=== PATIENT | female | born 1960 | race Caucasian/White ===

== ENCOUNTER 2020-10-01 15:36 | Inpatient (IN) | payer BC, MEDICARE ==
[~2020-10-01] VITALS: Ht 162.5 cm; Wt 101.1 kg
--- NOTE | 2020-10-01 15:51 | ED General ---
General Stated Complaint: HIGH HEART RATE,LT SHOULDER PAIN,NECK PAIN Source of Information: Patient Exam Limitations: No Limitations History of Present Illness Date Seen by Provider: Oct 01, 2020 Time Seen by Provider: 15:40 Initial Comments Patient is a 59-year-old female who presents with multiple medical complaints. Patient arrived in town 2 days ago after driving from [place] 12 hours straight. She reports left-sided neck pain with tenderness radiating to her left arm. She has had ongoing neck pain with radicular symptoms for the past 2 days. Pain is described as sharp rated moderate to severe and is worse with palpation neck movement shoulder movement. She denies chest pain and shortness of breath. Patient noted to be tachycardic with heart rate in 130s. Denies substance abuse, withdrawal or missed medications. Denies alcohol use. No fever chills or sweats. No leg pain or swelling. No history of DVT or PE. No weakness of loss of sensation in left upper extremity. No abdominal pain, nausea or vomiting. No dizziness or lightheadedness. No other acute symptoms or complaints. Patient does not currently have a PCP in [place]. Timing/Duration: 2-3 Days Severity: Moderate Modifying Factors: improves with Other Associated Systoms: Other Allergies and Home Medications Allergies Coded Allergies: Penicillins (Unverified Allergy, Mild, 03/21/14) azithromycin (Unverified Allergy, Mild, 03/21/14) Sulfa (Sulfonamide Antibiotics) (Verified Allergy, Unknown, 10/01/20) codeine (Verified Allergy, Unknown, 10/01/20) Patient Home Medication List Home Medication List Reviewed: Yes Review of Systems Review of Systems Constitutional: no symptoms reported EENTM: see HPI Cardiovascular: see HPI Gastrointestinal: see HPI Genitourinary: see HPI Musculoskeletal: see HPI Skin: see HPI Psychiatric/Neurological: See HPI Immunological/Allergic: see HPI All Other Systems Reviewed Negative Unless Noted: Yes Past [id number]-[id number] Hx Past Med/Social Hx: Reviewed Nursing Past Med/Soc Hx Seasonal Allergies Seasonal Allergies: No Physical Exam Vital Signs Vital Signs - First Documented 10/01/20 15:36 Temp 37.2 Pulse 141 Resp 23 B/P (MAP) 154/86 (108) Pulse Ox 99 O2 Delivery Room Air Capillary Refill : Height, Weight, BMI Height: 5'3" Weight: 201lbs. oz. 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 as Tested Skin: Normal Color Lymphatic: No Adenopathy Focused Exam Sepsis Stage: Ruled Out Progress/Results/Core Measures Suspected Sepsis SIRS Temperature: Pulse: Respiratory Rate: Laboratory Tests 10/01/20 15:49: White Blood Count 19.0H Blood Pressure / Mean: Laboratory Tests 10/01/20 15:49: Creatinine 1.04, Platelet Count 464H, Total Bilirubin 0.3 Results/Orders Lab Results Laboratory Tests Test 10/01/20 15:49 10/01/20 16:17 Range/Units White Blood Count 19.0 H 4.3-11.0 10^3/uL Red Blood Count 4.74 4.35-5.85 10^6/uL Hemoglobin 14.0 11.5-16.0 G/DL Hematocrit 43 35-52 % Mean Corpuscular Volume 91 80-99 FL Mean Corpuscular Hemoglobin 30 25-34 PG Mean Corpuscular Hemoglobin Concent 33 32-36 G/DL Red Cell Distribution Width 20.1 H 10.0-14.5 % Platelet Count 464 H 130-400 10^3/uL Mean Platelet Volume 11.6 H 7.4-10.4 FL Immature Granulocyte % (Auto) 0 % Neutrophils (%) (Auto) 71 42-75 % Lymphocytes (%) (Auto) 18 12-44 % Monocytes (%) (Auto) 8 0-12 % Eosinophils (%) (Auto) 2 0-10 % Basophils (%) (Auto) 1 0-10 % Neutrophils # (Auto) 13.4 H 1.8-7.8 X 10^3 Lymphocytes # (Auto) 3.5 1.0-4.0 X 10^3 Monocytes # (Auto) 1.6 H 0.0-1.0 X 10^3 Eosinophils # (Auto) 0.3 0.0-0.3 10^3/uL Basophils # (Auto) 0.1 0.0-0.1 10^3/uL Immature Granulocyte # (Auto) 0.1 0.0-0.1 10^3/uL Neutrophils % (Manual) 68 % Lymphocytes % (Manual) 13 % Monocytes % (Manual) 12 % Eosinophils % (Manual) 6 % Basophils % (Manual) 2 % Band Neutrophils 2 % D-Dimer 0.58 H 0.00-0.49 UG/ML Sodium Level 138 135-145 MMOL/L Potassium Level 4.0 3.6-5.0 MMOL/L Chloride Level 98 98-107 MMOL/L Carbon Dioxide Level 24 21-32 MMOL/L Anion Gap 16 H 5-14 MMOL/L Blood Urea Nitrogen 18 7-18 MG/DL Creatinine 1.04 0.60-1.30 MG/DL Estimat Glomerular Filtration Rate 54 BUN/Creatinine Ratio 17 Glucose Level 153 H 70-105 MG/DL Calcium Level 10.2 H 8.5-10.1 MG/DL Corrected Calcium 9.8 8.5-10.1 MG/DL Magnesium Level 1.3 L 1.6-2.4 MG/DL Total Bilirubin 0.3 0.1-1.0 MG/DL Aspartate Amino Transf (AST/SGOT) 51 H 5-34 U/L Alanine Aminotransferase (ALT/SGPT) 46 0-55 U/L Alkaline Phosphatase 155 H 40-136 U/L Troponin I < 0.30 <0.30 NG/ML Total Protein 8.4 H 6.4-8.2 GM/DL Albumin 4.5 3.2-4.5 GM/DL Urine Color DK YELLOW Urine Clarity SLT CLLUDY Urine pH 5.5 5-9 Urine Specific [place] >=1.030 1.016-1.022 Urine Protein 1+ H NEGATIVE Urine Glucose (UA) 2+ H NEGATIVE Urine Ketones NEGATIVE NEGATIVE Urine Nitrite NEGATIVE NEGATIVE Urine Bilirubin 1+ H NEGATIVE Urine Urobilinogen 0.2 < = 1.0 MG/DL Urine Leukocyte Esterase 2+ H NEGATIVE Urine RBC (Auto) TRACE H NEGATIVE Urine RBC NONE /HPF Urine WBC 25-50 H /HPF Urine Squamous Epithelial Cells 5-10 /HPF Urine Crystals NONE /LPF Urine Bacteria TRACE /HPF Urine Casts NONE /LPF Urine Mucus NEGATIVE /LPF Urine Culture Indicated YES Urine Opiates Screen POSITIVE H NEGATIVE Urine Oxycodone Screen NEGATIVE NEGATIVE Urine Methadone Screen NEGATIVE NEGATIVE Urine Propoxyphene Screen NEGATIVE NEGATIVE Urine Barbiturates Screen NEGATIVE NEGATIVE Ur Tricyclic Antidepressants Screen POSITIVE H NEGATIVE Urine Phencyclidine Screen NEGATIVE NEGATIVE Urine Amphetamines Screen NEGATIVE NEGATIVE Urine Methamphetamines Screen NEGATIVE NEGATIVE Urine Benzodiazepines Screen NEGATIVE NEGATIVE Urine Cocaine Screen NEGATIVE NEGATIVE Urine Cannabinoids Screen NEGATIVE NEGATIVE My Orders Orders - ABDI DE LA FUENTE DO Cbc With Automated Diff (10/01/20 15:51) Comprehensive Metabolic Panel (10/01/20 15:51) Ekg-Prn For Chest Pain Or Rhyt (10/01/20 15:51) Troponin I Fs (10/01/20 15:51) Chest 1 View Ap/Pa Only (10/01/20 15:51) Fentanyl Inj (Sublimaze Injection) (10/01/20 16:00) Ondansetron Injection (Zofran Injectio (10/01/20 16:00) Drug Screen Stat (Urine) (10/01/20 15:51) Urinalysis (10/01/20 15:51) Fibrin Degradation Products (10/01/20 15:51) Magnesium (10/01/20 15:51) Manual Differential (10/01/20 15:49) Ns Iv 1000 Ml (Sodium Chloride 0.9%) (10/01/20 16:45) Ct Angio Chest W (10/01/20 16:37) Ct Angio Neck W (10/01/20 16:37) Ekg Tracing (10/01/20 15:41) Lorazepam Injection (Ativan Injection) (10/01/20 16:45) Urine Culture (10/01/20 16:17) Iohexol Injection (Omnipaque 350 Mg/Ml 1 (10/01/20 16:45) Received Contrast (Hold Metformin- Contr (10/01/20 16:45) Sodium Chloride Flush (Catheter Flush Sy (10/01/20 16:45) Ns (Ivpb) (Sodium Chloride 0.9% Ivpb Bag (10/01/20 16:45) Lactic Acid Analyzer (10/01/20 18:00) Blood Culture (10/01/20 18:00) Medications Given in ED Current Medications Medications Dose Ordered Sig/Janelle Route Start Time Stop Time Status Last Admin Dose Admin Fentanyl Citrate 50 mcg ONCE ONCE IVP 10/01/20 16:00 10/01/20 16:01 DC 10/01/20 16:04 50 MCG Iohexol 150 ml ONCE ONCE IV 10/01/20 16:45 10/01/20 16:46 DC 10/01/20 17:22 150 ML Lorazepam 1 mg ONCE ONCE IVP 10/01/20 16:45 10/01/20 16:46 DC 10/01/20 16:45 1 MG Ondansetron HCl 4 mg ONCE ONCE IVP 10/01/20 16:00 10/01/20 16:01 DC 10/01/20 16:04 4 MG Sodium Chloride 10 ml NEEDED PRN IV 10/01/20 16:45 10/01/20 17:22 10 ML Sodium Chloride 100 ml ONCE ONCE IV 10/01/20 16:45 10/01/20 16:46 DC 10/01/20 17:22 100 ML Vital Signs/I&O 10/01/20 15:36 Temp 37.2 Pulse 141 Resp 23 B/P (MAP) 154/86 (108) Pulse Ox 99 O2 Delivery Room Air Capillary Refill : Departure Communication (Admissions) EKG 10/01/2020, 1541: Sinus tachycardia rate 135, MA interval 129, QRS 93, QTc 464. No acute ST-T wave changes. Chest x-ray: No acute cardiopulmonary disease. CTA neck/chest: Pulmonary emboli and subsegmental lobes of all 5 lobes. No evidence of significant right heart strain Patient with multiple medical complaints. Tachycardia presumed to be the result of pulmonary emboli. Patient is not hypoxic or hypotensive. Lovenox initiated. She also noted to have a 19,000 white count with positive UA. Afebrile, no nausea vomiting or sweats. IV fluids given and IV antibiotics given. Patient accepted to [facility] per Dr. Hernandez at 17:45 Critical care time: 35 minutes Impression Primary Impression: Pulmonary emboli Additional Impressions: Cervical radicular pain Urinary tract infection Disposition: ADMITTED INPATIENT Condition: Stable Admissions Decision to Admit Reason: Admit from ER (General) Decision to Admit/Date: Oct 01, 2020 Time/Decision to Admit Time: 17:45 Transfer Transfer Reason: Exceeds level of care Method of Transfer: EMS Departure-Patient Inst. Referrals: SELF,CATHERINE MANZANO (PCP/Family) Primary Care Physician ABDI DE LA FUENTE DO Oct 01, 2020 15:51
[2020-10-01] MEDS ORDERED: ONDANSETRON 4 MG/2 ML (SDV) Z0FRAN IVP ONE (16:00)
[2020-10-01] MEDS ORDERED: fentaNYL INJ 100 MCG/2 ML AMP IVP ONE (16:00)
[2020-10-01 16:07] LABS: HEMATOCRIT 43 % (35-52); MEAN CORPUSCULAR HEMOGLOBIN 30 PG (25-34); MEAN CORPUSCULAR HGB CONC 33 G/DL (32-36); MEAN CORPUSCULAR VOLUME 91 FL (80-99); MEAN PLATELET VOLUME 11.6 FL (7.4-10.4); PLATELET COUNT 464 10^3/uL (130-400)
[2020-10-01 16:08] LABS: BASOPHILS # (AUTO) 0.1 10^3/uL (0.0-0.1); BASOPHILS % (AUTO) 1 % (0-10); EOSINOPHILS # (AUTO) 0.3 10^3/uL (0.0-0.3); EOSINOPHILS % (AUTO) 2 % (0-10); LYMPHOCYTES # (AUTO) 3.5 X 10^3 (1.0-4.0); LYMPHOCYTES % (AUTO) 18 % (12-44); MONOCYTES # (AUTO) 1.6 X 10^3 (0.0-1.0); MONOCYTES % (AUTO) 8 % (0-12); NEUTROPHILS # (AUTO) 13.4 X 10^3 (1.8-7.8); NEUTROPHILS % (AUTO) 71 % (42-75)
--- NOTE | 2020-10-01 16:11 | Diagnostic Imaging Report ---
INDICATION: Left-sided chest pain. TECHNIQUE/COMPARISON: A frontal chest was obtained at 3:49 PM. There is no prior study for comparison. FINDINGS: The heart and mediastinal silhouette are normal in appearance. The lungs are clear. There is no pneumothorax or pleural fluid. IMPRESSION: Negative chest. Dictated by: Dictated on workstation # [id number]
[2020-10-01 16:20] LABS: BUN/CREATININE RATIO 17; CALCIUM 10.2 MG/DL (8.5-10.1); CARBON DIOXIDE 24 MMOL/L (21-32); CHLORIDE 98 MMOL/L (98-107); CREATININE SERUM 1.04 MG/DL (0.60-1.30); GFR ESTIMATED 54; GLUCOSE 153 MG/DL (70-105); MAGNESIUM 1.3 MG/DL (1.6-2.4); SODIUM 138 MMOL/L (135-145)
[2020-10-01 16:21] LABS: ALANINE AMINOTRANSFERASE 46 U/L (0-55); ALBUMIN 4.5 GM/DL (3.2-4.5); ALKALINE PHOSPHATASE 155 U/L (40-136); BILIRUBIN,TOTAL 0.3 MG/DL (0.1-1.0); TOTAL PROTEIN 8.4 GM/DL (6.4-8.2)
[2020-10-01 16:38] LABS: BILIRUBIN,URINE 1+ (NEGATIVE); CLARITY,URINE SLT CLLUDY; COLOR,URINE DK YELLOW; GLUCOSE, URINE (UA) 2+ (NEGATIVE); KETONES,URINE NEGATIVE (NEGATIVE); LEUKOCYTE ESTERASE ,URINE 2+ (NEGATIVE); NITRITE,URINE NEGATIVE (NEGATIVE); PH,URINE 5.5 (5-9); PROTEIN,URINE 1+ (NEGATIVE)
[2020-10-01 16:39] LABS: BACTERIA,URINE TRACE /HPF; WBC,URINE 25-50 /HPF
[2020-10-01 16:40] LABS: AMPHETAMINE SCREEN, URINE NEGATIVE (NEGATIVE); BARBITURATE SCREEN URINE NEGATIVE (NEGATIVE); BENZODIAZEPINES SCREEN URINE NEGATIVE (NEGATIVE); CANNABINOID SCREEN, URINE NEGATIVE (NEGATIVE); COCAINE SCREEN URINE NEGATIVE (NEGATIVE); METHADONE STAT NEGATIVE (NEGATIVE); METHAMPHETAMINE SCREEN URINE S NEGATIVE (NEGATIVE); OPIATE SCREEN URINE POSITIVE (NEGATIVE); OXYCODONE STAT NEGATIVE (NEGATIVE); PROPOXYPHENE STAT NEGATIVE (NEGATIVE); TRICYCLIC ANTIDEPRESSANTS SCRE POSITIVE (NEGATIVE)
[2020-10-01] MEDS: NS IV 1000 ML 1,000 ML IV SCH ×2 (16:41→18:09)
[2020-10-01] MEDS ORDERED: LORazepam INJ 2 MG/ML (ATIVAN) VIAL IVP ONE (16:45)
[2020-10-01] MEDS ORDERED: NS 100 ML (IVPB) BAG IV ONE (16:45)
[2020-10-01] MEDS ORDERED: IOHEXOL 350 MG/ML 150 ML (OMNIPAQUE 350) VIAL IV ONE (16:45)
[2020-10-01] MEDS ORDERED: CATHETER FLUSH 10 ML SYR IV PRN ×2 (16:45→20:30)
[2020-10-01] MEDS ORDERED: HOLD METFORMIN - RECEIVED CONTRAST 20 ML VIAL IV SCH (16:45)
[2020-10-01 16:54] LABS: BAND NEUTROPHILS 2 %; BASOPHILS % (MANUAL) 2 %; EOSINOPHILS % (MANUAL) 6 %; LYMPHOCYTES % (MANUAL) 13 %; MONOCYTES % (MANUAL) 12 %; NEUTROPHILS % (MANUAL) 68 %
--- NOTE | 2020-10-01 17:43 | Diagnostic Imaging Report ---
REASON FOR EXAM: Left-sided neck pain. Shortness of breath. TIME OF EXAM: 10/01/2020 5:35 PM COMPARISON: None. TECHNIQUE: Contrast-enhanced thin section helical images were obtained from the mediastinum to the sella with the bolus of contrast timed for the optimal opacification of the arterial structures of the neck per departmental CTA protocol. Postprocessing and retro-reconstruction with coronal and sagittal reformatted images of the angiographic views of the vessels were obtained and were reviewed. 3D reformatted images were generated on a separate workstation and were reviewed. FINDINGS: The visualized portions of the aortic arch demonstrate no evidence of aneurysm or dissection. The origin of the arch vessels is unremarkable. The brachiocephalic artery is normal in course and caliber. The right common carotid origin is unremarkable. The right subclavian artery is normal in course and caliber. Both common carotid arteries are normal in course and caliber. Bilateral internal carotid arteries are unremarkable up to the level of the skull base. The vertebral arteries are codominant. The origin of the right vertebral artery is seen and is unremarkable. The origin of the left vertebral artery is seen and is unremarkable. There is no focal stenosis seen within the neck. There is no dissection. The vertebral arteries are well visualized to up to the level of the basilar artery. The osseous structures of the cervical spine are unremarkable. Included views through the intracranial structures demonstrate no acute abnormalities. IMPRESSION: 1. No evidence of stenosis or dissection in the common and internal carotid arteries. 2. No evidence of stenosis or dissection of the vertebral arteries. Dictated by: Dictated on workstation # [id number]
--- NOTE | 2020-10-01 17:54 | Diagnostic Imaging Report ---
PROCEDURE: CT angiography of the chest with contrast. TECHNIQUE: Multiple contiguous axial images were obtained through the chest after uneventful bolus administration of intravenous contrast. 3D reconstructed CTA MIP acquisitions were also performed. Auto Exposure Controls were utilized during the CT exam to meet ALARA standards for radiation dose reduction. INDICATION: Left-sided chest pain. Shortness of breath. Elevated d-dimer. COMPARISON: Chest radiograph on 10/01/2020. CT abdomen and pelvis on 03/21/2014. FINDINGS: This helical CT pulmonary angiogram is diagnostic to the subsegmental level branches of the pulmonary artery and demonstrates a small burden of pulmonary emboli involving the subsegmental arteries and all five lobes. No evidence of right heart strain. The heart size is normal. No pericardial effusion. There is no axillary, mediastinal or hilar adenopathy. No focal consolidation or mass. No evidence of pulmonary infarct. Calcified granuloma is seen in the right midlung. Dependent atelectasis is seen, bilaterally. No pleural effusion is seen. Osseous structures appear normal. Nonspecific nodule seen in the left adrenal gland measuring 1.6 cm. IMPRESSION: 1. Small burden of pulmonary emboli in the subsegmental arteries in all five lobes. No evidence of right heart strain. No pulmonary infarct. 2. Nonspecific left adrenal nodule, stable since 2013 and likely benign. Findings were called to Dr. Mendez at 5:45 PM on 10/01/[address] Antoni Hernandez. Dictated by: Dictated on workstation # [id number]
[2020-10-01] MEDS ORDERED: ENOXAPARIN 100 MG/1 ML (LOVENOX) SYR SC ONE (18:15)
[2020-10-01] MEDS ORDERED: HYDROcodone/APAP 5 MG/325 MG (LORTAB) TAB ONE (18:45)
[2020-10-01] MEDS ORDERED: HYDROcodone/APAP 5 MG/325 MG (LORTAB) TAB PO ONE (19:00)
[2020-10-01] MEDS ORDERED: HYDROcodone/APAP 5 MG/325 MG (LORTAB) TAB PO PRN (20:30)
[2020-10-01] MEDS: GABAPENTIN 300 MG (NEURONTIN) CAP PO SCH (22:55)
[2020-10-01] MEDS: HYDROcodone/APAP 7.5 MG/325 MG (LORTAB, LORCET PLUS) TABLET PO PRN (22:56)
[2020-10-01] MEDS: cefTRIAXone 1,000 MG/SWFI 10 ML IV PUSH IV SCH ×2 (22:57)
[2020-10-01] MEDS: CATHETER FLUSH 10 ML SYR IV SCH (23:01)
[2020-10-02] MEDS ORDERED: ALLO100T PO (03:29)
[2020-10-02] MEDS ORDERED: ISOS120T9 PO (03:29)
[2020-10-02] MEDS ORDERED: METF100P2 MC (03:29)
[2020-10-02] MEDS ORDERED: MTP100TCR PO (03:29)
[2020-10-02] MEDS ORDERED: SUCR1TAB PO (03:29)
[2020-10-02] MEDS ORDERED: INSU100I22 SQ ×2 (03:29→11:48)
[2020-10-02] MEDS ORDERED: RANO500T6 PO (03:29)
[2020-10-02] MEDS ORDERED: LISI10TA25 PO (03:29)
[2020-10-02] MEDS ORDERED: ASPI-1238 PO (03:29)
[2020-10-02] MEDS ORDERED: PANT40TA52 PO (03:29)
[2020-10-02] MEDS ORDERED: HYDR-3817 PO (03:29)
[2020-10-02] MEDS ORDERED: GABA300S2 PO (03:29)
[2020-10-02] MEDS ORDERED: MONT10TA32 PO (03:29)
[2020-10-02] MEDS ORDERED: SITA100T12 PO (03:29)
[2020-10-02] MEDS ORDERED: GEMF600T88 PO (03:29)
[2020-10-02] MEDS ORDERED: AMLO-250 PO (03:29)
[2020-10-02] MEDS ORDERED: VENL75TA2 PO (03:29)
[2020-10-02] MEDS ORDERED: NITR0.4T39 SL (03:29)
[2020-10-02] MEDS ORDERED: ATOR40TA70 PO (03:29)
[2020-10-02] MEDS ORDERED: MELO15TA39 PO (03:29)
[2020-10-02] MEDS ORDERED: RT-ALBUINH IH (03:29)
[2020-10-02 03:48] LABS: BASOPHILS # (AUTO) 0.1 10^3/uL (0.0-0.1); BASOPHILS % (AUTO) 1 % (0-10); EOSINOPHILS # (AUTO) 0.4 10^3/uL (0.0-0.3); EOSINOPHILS % (AUTO) 4 % (0-10); HEMATOCRIT 36 % (35-52); HEMOGLOBIN 11.4 g/dL (11.5-16.0); LYMPHOCYTES # (AUTO) 3.4 10^3/uL (1.0-4.0); LYMPHOCYTES % (AUTO) 32 % (12-44); MEAN CORPUSCULAR HEMOGLOBIN 30 pg (25-34); MEAN CORPUSCULAR HGB CONC 32 g/dL (32-36); MEAN CORPUSCULAR VOLUME 94 fL (80-99); MEAN PLATELET VOLUME 11.7 fL (9.0-12.2); MONOCYTES # (AUTO) 1.1 10^3/uL (0.0-1.0); MONOCYTES % (AUTO) 11 % (0-12); NEUTROPHILS # (AUTO) 5.7 10^3/uL (1.8-7.8); NEUTROPHILS % (AUTO) 53 % (42-75); PLATELET COUNT 340 10^3/uL (130-400); WHITE BLOOD COUNT 10.7 10^3/uL (4.3-11.0)
[2020-10-02 04:22] LABS: ALBUMIN 3.4 GM/DL (3.2-4.5)
[2020-10-02 04:23] LABS: CALCIUM 8.8 MG/DL (8.5-10.1)
[2020-10-02 04:25] LABS: TOTAL PROTEIN 6.6 GM/DL (6.4-8.2)
[2020-10-02 04:26] LABS: BILIRUBIN,TOTAL 0.2 MG/DL (0.1-1.0)
[2020-10-02 04:28] LABS: CREATININE SERUM 1.04 MG/DL (0.60-1.30)
--- NOTE | 2020-10-02 04:44 | Pulmonary Consultation ---
History of Present Illness History of Present Illness Date Seen by Provider: Oct 02, 2020 Time Seen by Provider: 04:38 Date of Admission Allergies and Home Medications Allergies Coded Allergies: Penicillins (Unverified Allergy, Mild, 03/21/14) azithromycin (Unverified Allergy, Mild, 03/21/14) Sulfa (Sulfonamide Antibiotics) (Verified Allergy, Unknown, 10/01/20) codeine (Verified Allergy, Unknown, 10/01/20) Home Medications Albuterol Sulfate 1 Puff Puff, 2 PUFF IH Q4H, (Reported) 1 PUFF = 90 MCG Allopurinol 100 Mg Tablet, 200 MG PO DAILY, (Reported) Amlodipine Besylate 5 Mg Tablet, 5 MG PO DAILY, (Reported) Aspirin 81 Mg Tablet.dr, 81 MG PO DAILY, (Reported) Atorvastatin Calcium 40 Mg Tablet, 40 MG PO HS, (Reported) Gabapentin 300 Mg/6 Ml Solution, 300 MG PO TID, (Reported) Gemfibrozil 600 Mg Tablet, 600 MG PO BID, (Reported) Hydrocodone/Acetaminophen 1 Each Tablet, 1 EACH PO Q6H PRN for PAIN-MODERATE (5- 7), (Reported) Isosorbide Mononitrate 120 Mg Tab.er.24h, 120 MG PO DAILY, (Reported) Lisinopril 10 Mg Tablet, 10 MG PO DAILY, (Reported) Meloxicam 15 Mg Tablet, 15 MG PO DAILY, (Reported) Metformin HCl 100 Gm Powder, 100 GM MC BID, (Reported) Metoprolol Succinate 100 Mg Tab.er.24h, 100 MG PO DAILY, (Reported) Montelukast Sodium 10 Mg Tablet, 10 MG PO HS, (Reported) Nitroglycerin 0.4 Mg Tab.subl, 0.4 MG SL UD PRN for CHEST PAIN, (Reported) Pantoprazole Sodium 40 Mg Tablet.dr, 40 MG PO DAILY, (Reported) Ranolazine 500 Mg Tab.er.12h, 500 MG PO BID, (Reported) Sitagliptin Phosphate 100 Mg Tablet, 100 MG PO DAILY, (Reported) Sucralfate 1 Gm Tablet, 2 GM PO BID, (Reported) Venlafaxine HCl 75 Mg Tab.er.24, 75 MG PO DAILY, (Reported) Past Hhifrkz-Dhwmbw-Rdehpk Hx Past Med/Social Hx: Reviewed Nursing Past Med/Soc Hx Patient Social History Alcohol Use: Denies Use Smoking Status: Current Everyday Smoker Type Used: Cigarettes 2nd Hand Smoke Exposure: No Recent Infectious Disease Expo: No Recent Hopitalizations: No Have you traveled recently?: No Alcohol Use?: Yes Immunizations Up To Date Date of Influenza Vaccine: May 03, 2020 Seasonal Allergies Seasonal Allergies: Yes Past Medical History Surgeries: Yes Appendectomy, Coronary Stent, Gallbladder, 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, Orthopedic Respiratory: Yes COPD Cardiac: Yes ("Hole in heart") Coronary Artery Disease, Heart Attack, High Cholesterol, Hypertension 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 oz. 91.471869tn; 36.58 BMI Method: Exam Exam Vital Signs Date Time Temp Pulse Resp B/P (MAP) Pulse Ox O2 Delivery O2 Flow Rate FiO2 10/02/20 02:00 106 20 102/56 (71) 97 Room Air 10/02/20 01:49 94 Room Air 10/02/20 01:00 104 18 119/64 (82) 98 Room Air 10/02/20 01:00 106 10/02/20 00:30 94 Room Air 10/02/20 00:00 105 18 85/57 (66) 96 Room Air 10/01/20 23:00 115 13 105/67 (80) 97 Room Air 10/01/20 22:01 20 102/54 (70) 92 Room Air 10/01/20 21:50 94 Room Air 10/01/20 21:39 120 10/01/20 21:30 108 22 123/77 (92) 95 Room Air 10/01/20 21:00 20 85/62 (70) 92 10/01/20 20:45 131 28 101/75 (84) 96 Room Air 10/01/20 20:30 130 28 101/75 (84) 96 Room Air 10/01/20 20:30 94 Room Air 10/01/20 20:15 130 22 103/72 (82) 95 Room Air 10/01/20 20:00 22 117/78 (91) 94 10/01/20 20:00 94 Room Air 10/01/20 19:55 22 109/70 (83) 94 Room Air 10/01/20 18:59 37.2 126 23 111/66 (108) 99 Room Air 10/01/20 15:36 37.2 141 23 154/86 (108) 99 Room Air I & O 10/02/20 07:00 Intake Total 1700 ml Output Total 700 ml Balance 1000 ml Height & Weight Height: 5'3" Weight: 201lbs. oz. 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
[2020-10-02] MEDS: CATHETER FLUSH 10 ML SYR IV SCH ×3 (05:33→22:01)
[2020-10-02] MEDS: ENOXAPARIN 100 MG/1 ML (LOVENOX) SYR SC SCH ×2 (05:33→17:55)
[2020-10-02] MEDS ORDERED: amLODIPine 5 MG (NORVASC) TAB PO ONE (09:00)
[2020-10-02] MEDS: NICOTINE PATCH REMOVAL TP SCH (09:05)
[2020-10-02] MEDS: GABAPENTIN 300 MG (NEURONTIN) CAP PO SCH ×3 (09:06→21:02)
[2020-10-02] MEDS: NICOTINE 14 MG (NICODERM) PATCH TD SCH (09:06)
[2020-10-02] MEDS: ALLOPURINOL 100 MG (ZYLOPRIM) TAB PO SCH ×2 (09:08→17:54)
[2020-10-02] MEDS ORDERED: METF-399 PO (10:27)
[2020-10-02] MEDS ORDERED: DIPH25CA79 PO (10:27)
[2020-10-02] MEDS ORDERED: MELA10TA2 PO (10:27)
[2020-10-02] MEDS ORDERED: FLUT9.9S NS (10:27)
[2020-10-02] MEDS ORDERED: GABA300C PO (10:27)
--- NOTE | 2020-10-02 11:35 | Consultation-Cardiology ---
HPI-Cardiology Cardiology Consultation: Date of Consultation 10/02/20 Time Seen by a Provider: 12:25 Date of Admission 10-01-20 Attending Physician Justine Hernandez MD Admitting Physician Charly Valdez MD Consulting Physician Ely Love MD HPI: Chief Complaint: SOB PE Sinus tachycardia Ms. Noyola is a 59 yr old female admitted to ICU 4 from [facility] ED. She reports she and her friend are moving back to the area from [place]. She reports they were in the car for approx 8-10 hours only stopping briefly for restroom breaks. She states she began to have left sided neck, shoulder and upper arm pain which is worse with movement and palpation. She then presented to Urgent Care at [facility] and was directed to the ED d/t HR in the 180's, for which she was asymptomatic. She reports she has chronic SOB, but felt it had been somewhat worse the last couple days. She denies any c/o CP. She reports chronic bilat LE swelling, which is unchanged in the recent past. She denies any c/o palpitations, syncope or near syncope. She reports chronic joint, back and muscle pain for which she is on chronic narcotic tx. She states she is feeling better at this time. She reports her neck pain is better, but very tender to the touch and with movement. She reports she had her second COVID vaccine a week ago. No c/o fever or chills. States she has chronic hot flashes. Review of Systems-Cardiology Review of Systems Constitutional: No chills, No fever; malaise Eyes: No vision change Ears/Nose/Throat: No epistaxis, No recent hearing loss Respiratory: As described under HPI Cardiovascular: As described under HPI Gastrointestinal: As described under HPI Genitourinary: No dysuria, No hematuria Musculoskeletal: As describe under HPI, back pain, joint pain, muscle pain Skin: No rash on exposed areas, No ulcerations on exposed areas Psychiatric/Neurological: No anxiety, No depression, No seizure, No focal weakness, No syncope Hematologic: No bleeding abnormalities All Other Systems Reviewed Negative Unless Noted: Yes [facility]-[id number]-Jvybyk Hx Patient Social History Smoking Status: Current Everyday Smoker 2nd Hand Smoke Exposure: No Have you traveled recently?: No Alcohol Use?: Yes Tobacco type used: Cigarettes Immunizations Up To Date Date of Influenza Vaccine: May 03, 2020 Past Medical History PMH As described under Assessment. Family Medical History Family Medical History: She reports her mother had CAD with stent placement. She reports her brothers and sisters "all have heart troubles". Allergies and Home Medications Allergies Coded Allergies: Penicillins (Unverified Allergy, Mild, 03/21/14) azithromycin (Unverified Allergy, Mild, 03/21/14) Sulfa (Sulfonamide Antibiotics) (Verified Allergy, Unknown, 10/01/20) codeine (Verified Allergy, Unknown, 10/01/20) Home Medications Albuterol Sulfate 1 Puff Puff, 2 PUFF IH Q4H PRN for SHORTNESS OF BREATH, (Reported) Last Action: Reviewed Allopurinol 100 Mg Tablet, 100 MG PO 1200,2200, (Reported) Last Action: Reviewed Amlodipine Besylate 5 Mg Tablet, 5 MG PO 1999, (Reported) Last Action: Reviewed Aspirin 81 Mg Tablet.dr, 162 MG PO DAILY, (Reported) TAKES 2 (81NG) TABS Last Action: Reviewed Atorvastatin Calcium 40 Mg Tablet, 40 MG PO HS, (Reported) Last Action: Reviewed Diphenhydramine HCl 25 Mg Capsule, 25 MG PO HS, (Reported) Last Action: Reviewed Fluticasone Propionate 9.9 Ml [place].susp, 1-2 SPRAY NS DAILY PRN for CONGESTION, (Reported) Last Action: Reviewed Gabapentin 300 Mg Capsule, 300 MG PO TID, (Reported) Last Action: Reviewed Gemfibrozil 600 Mg Tablet, 600 MG PO BID, (Reported) Last Action: Reviewed Hydrocodone/Acetaminophen 1 Each Tablet, 1 EACH PO Q6H PRN for PAIN-MODERATE (5- 7), (Reported) Last Action: Reviewed Insulin NPL/Insulin Lispro 100 Unit/1 Ml Insuln.pen, 90 UNIT SQ BID, (Reported) Last Action: Reviewed Insulin NPL/Insulin Lispro 100 Unit/1 Ml Insuln.pen, 60 UNIT SQ 1200, (Reported) Last Action: Reviewed Isosorbide Mononitrate 120 Mg Tab.er.24h, 120 MG PO 1999, (Reported) Last Action: Reviewed Lisinopril 10 Mg Tablet, 10 MG PO 1200, (Reported) Last Action: Reviewed Melatonin 10 Mg Tablet, 10 MG PO HS, (Reported) Last Action: Reviewed Meloxicam 15 Mg Tablet, 15 MG PO HS, (Reported) Last Action: Reviewed Metformin HCl 1,000 Mg Tablet, 1,000 MG PO 1200,2200, (Reported) Last Action: Reviewed Metoprolol Succinate 100 Mg Tab.er.24h, 100 MG PO 1800, (Reported) Last Action: Reviewed Montelukast Sodium 10 Mg Tablet, 10 MG PO HS, (Reported) Last Action: Reviewed Nitroglycerin 0.4 Mg Tab.subl, 0.4 MG SL UD PRN for CHEST PAIN, (Reported) Last Action: Reviewed Pantoprazole Sodium 40 Mg Tablet.dr, 40 MG PO HS, (Reported) Last Action: Reviewed Ranolazine 500 Mg Tab.er.12h, 500 MG PO 1200,2200, (Reported) Last Action: Reviewed Sitagliptin Phosphate 100 Mg Tablet, 100 MG PO DAILY, (Reported) Last Action: Reviewed Venlafaxine HCl 75 Mg Tab.er.24, 75 MG PO 1800, (Reported) Last Action: Last Taken Edited Physical Exam-Cardiology Physical Exam Vital Signs/I&O 10/02/20 10/02/20 10/02/20 10/02/20 01:49 02:00 03:00 04:00 Pulse 106 95 102 Resp 20 22 23 B/P (MAP) 102/56 (71) 127/73 (91) 119/66 (83) Pulse Ox 94 97 97 97 O2 Delivery Room Air Room Air Room Air Room Air 10/02/20 10/02/20 10/02/20 10/02/20 05:00 05:34 06:00 07:00 Pulse 108 112 108 Resp 18 18 B/P (MAP) 130/89 (103) 130/98 (109) Pulse Ox 97 94 98 O2 Delivery Nasal Cannula Room Air Nasal Cannula O2 Flow Rate 2.00 2.00 10/02/20 10/02/20 10/02/20 10/02/20 07:00 08:00 08:12 09:00 Temp 36.0 Pulse 109 112 Resp 17 14 B/P (MAP) 143/82 (102) 122/78 (93) Pulse Ox 97 98 94 O2 Delivery Nasal Cannula Nasal Cannula Room Air O2 Flow Rate 2.00 2.00 10/02/20 10/02/20 10/02/20 11:37 12:00 12:42 Temp 36.2 Pulse 104 118 Resp 15 B/P (MAP) 131/80 (97) Pulse Ox 98 O2 Delivery Nasal Cannula O2 Flow Rate 2.00 10/02/20 00:00 Intake Total 700 ml Output Total 700 ml Balance 0 ml Capillary Refill : Less Than 3 Seconds Constitutional: AAO x 3, well-developed, well-nourished HEENT: PERRL, hearing is well preserved, oral hygience is good Neck: No carotid bruit; carotid pulses are 2 + bilaterally Respiratory: No accessory muscle use, No respiratory distress; chest expansion is symmetric, chest is bilaterally symmetric, lungs clear to auscultation, other (prolonged exp phase) Gastrointestinal: soft, round; No guarding; audible bowel sounds Extremities: no lower extremity edema bilateral Neurologic/Psychiatric: grossly intact (moves all extremities) Skin: No rash on exposed areas, No ulcerations on exposed areas Data Review Labs Laboratory Tests 10/01/20 15:49: White Blood Count 19.0H, Red Blood Count 4.74, Hemoglobin 14.0, Hematocrit 43, Mean Corpuscular Volume 91, Mean Corpuscular Hemoglobin 30, Mean Corpuscular Hemoglobin Concent 33, Red Cell Distribution Width 20.1H, Platelet Count 464H, Mean Platelet Volume 11.6H, Immature Granulocyte % (Auto) 0, Neutrophils (%) (Auto) 71, Lymphocytes (%) (Auto) 18, Monocytes (%) (Auto) 8, Eosinophils (%) (Auto) 2, Basophils (%) (Auto) 1, Neutrophils # (Auto) 13.4H, Lymphocytes # (Auto) 3.5, Monocytes # (Auto) 1.6H, Eosinophils # (Auto) 0.3, Basophils # (Auto) 0.1, Immature Granulocyte # (Auto) 0.1, Neutrophils % (Manual) 68, Lymphocytes % (Manual) 13, Monocytes % (Manual) 12, Eosinophils % (Manual) 6, Basophils % (Manual) 2, Band Neutrophils 2, D-Dimer 0.58H, Sodium Level 138, Potassium Level 4.0, Chloride Level 98, Carbon Dioxide Level 24, Anion Gap 16H, Blood Urea Nitrogen 18, Creatinine 1.04, Estimat Glomerular Filtration Rate 54, BUN/Creatinine Ratio 17, Glucose Level 153H, Calcium Level 10.2H, Corrected Calcium 9.8, Magnesium Level 1.3L, Total Bilirubin 0.3, Aspartate Amino Transf (AST/SGOT) 51H, Alanine Aminotransferase (ALT/SGPT) 46, Alkaline Phosphatase 155H, Troponin I < 0.30, Total Protein 8.4H, Albumin 4.5 10/01/20 16:17: Urine Color DK YELLOW, Urine Clarity SLT CLLUDY, Urine pH 5.5, Urine Specific [place] >=1.030, Urine Protein 1+H, Urine Glucose (UA) 2+H, Urine Ketones NEGATIVE, Urine Nitrite NEGATIVE, Urine Bilirubin 1+H, Urine Urobilinogen 0.2, Urine Leukocyte Esterase 2+H, Urine RBC (Auto) TRACEH, Urine RBC NONE, Urine WBC 25-50H, Urine Squamous Epithelial Cells 5-10, Urine Crystals NONE, Urine Bacteria TRACE, Urine Casts NONE, Urine Mucus NEGATIVE, Urine Culture Indicated YES, Urine Opiates Screen POSITIVEH, Urine Oxycodone Screen NEGATIVE, Urine Methadone Screen NEGATIVE, Urine Propoxyphene Screen NEGATIVE, Urine Barbiturates Screen NEGATIVE, Ur Tricyclic Antidepressants Screen POSITIVEH, Urine Phencyclidine Screen NEGATIVE, Urine Amphetamines Screen NEGATIVE, Urine Methamphetamines Screen NEGATIVE, Urine Benzodiazepines Screen NEGATIVE, Urine Cocaine Screen NEGATIVE, Urine Cannabinoids Screen NEGATIVE 10/01/20 18:16: Lactic Acid Level 1.58 10/01/20 20:56: Glucometer 79 10/02/20 03:30: White Blood Count 10.7, Red Blood Count 3.82, Hemoglobin 11.4L, Hematocrit 36, Mean Corpuscular Volume 94, Mean Corpuscular Hemoglobin 30, Mean Corpuscular Hemoglobin Concent 32, Red Cell Distribution Width 20.4H, Platelet Count 340, Mean Platelet Volume 11.7, Immature Granulocyte % (Auto) 0, Neutrophils (%) (Auto) 53, Lymphocytes (%) (Auto) 32, Monocytes (%) (Auto) 11, Eosinophils (%) (Auto) 4, Basophils (%) (Auto) 1, Neutrophils # (Auto) 5.7, Lymphocytes # (Auto) 3.4, Monocytes # (Auto) 1.1H, Eosinophils # (Auto) 0.4H, Basophils # (Auto) 0.1, Immature Granulocyte # (Auto) 0.0, Sodium Level 134L, Potassium Level 4.0, Chloride Level 103, Carbon Dioxide Level 18L, Anion Gap 13, Blood Urea Nitrogen 16, Creatinine 1.04, Estimat Glomerular Filtration Rate 54, BUN/Creatinine Ratio 15, Glucose Level 195H, Calcium Level 8.8, Corrected Calcium 9.3, Total Bilirubin 0.2, Aspartate Amino Transf (AST/SGOT) 37H, Alanine Aminotransferase (ALT/SGPT) 38, Alkaline Phosphatase 115, Troponin I < 0.028, Total Protein 6.6, Albumin 3.4 Microbiology 10/01/20 Urine Culture - Preliminary, Resulted NO GROWTH Radiology NAME: WESLY NOYOLA [facility] REC#: [id number] PT STATUS: REG ER : 1960 PHYSICIAN: ABDI MENDEZ DO ADMIT DATE: 10/01/20/ER FS Signed Date of Exam:10/01/20 CT ANGIO CHEST W PROCEDURE: CT angiography of the chest with contrast. TECHNIQUE: Multiple contiguous axial images were obtained through the chest after uneventful bolus administration of intravenous contrast. 3D reconstructed CTA MIP acquisitions were also performed. Auto Exposure Controls were utilized during the CT exam to meet ALARA standards for radiation dose reduction. INDICATION: Left-sided chest pain. Shortness of breath. Elevated d-dimer. COMPARISON: Chest radiograph on 10/01/2020. CT abdomen and pelvis on 03/21/2014. FINDINGS: This helical CT pulmonary angiogram is diagnostic to the subsegmental level branches of the pulmonary artery and demonstrates a small burden of pulmonary emboli involving the subsegmental arteries and all five lobes. No evidence of right heart strain. The heart size is normal. No pericardial effusion. There is no axillary, mediastinal or hilar adenopathy. No focal consolidation or mass. No evidence of pulmonary infarct. Calcified granuloma is seen in the right midlung. Dependent atelectasis is seen, bilaterally. No pleural effusion is seen. Osseous structures appear normal. Nonspecific nodule seen in the left adrenal gland measuring 1.6 cm. IMPRESSION: 1. Small burden of pulmonary emboli in the subsegmental arteries in all five lobes. No evidence of right heart strain. No pulmonary infarct. 2. Nonspecific left adrenal nodule, stable since 2013 and likely benign. Findings were called to Dr. Mendez at 5:45 PM on 10/01/[address] Luda Tripp. Dictated by: Dictated on workstation # [id number] Dict: 10/01/20 1744 Trans: 10/01/20 7541 [facility] [id number] Interpreted by: LUDA TRIPP DO Electronically signed by: LUDA TRIPP DO 10/01/20 [id number] [facility] [place] [place] NAME: WESLY NOYOLA [facility] REC#: [id number] PT STATUS: REG ER : 1960 PHYSICIAN: ABDI MENDEZ DO ADMIT DATE: 10/01/20/ER FS Signed Date of Exam:10/01/20 CT ANGIO NECK W REASON FOR EXAM: Left-sided neck pain. Shortness of breath. TIME OF EXAM: 10/01/2020 5:35 PM COMPARISON: None. TECHNIQUE: Contrast-enhanced thin section helical images were obtained from the mediastinum to the sella with the bolus of contrast timed for the optimal opacification of the arterial structures of the neck per departmental CTA protocol. Postprocessing and retro-reconstruction with coronal and sagittal reformatted images of the angiographic views of the vessels were obtained and were reviewed. 3D reformatted images were generated on a separate workstation and were reviewed. FINDINGS: The visualized portions of the aortic arch demonstrate no evidence of aneurysm or dissection. The origin of the arch vessels is unremarkable. The brachiocephalic artery is normal in course and caliber. The right common carotid origin is unremarkable. The right subclavian artery is normal in course and caliber. Both common carotid arteries are normal in course and caliber. Bilateral internal carotid arteries are unremarkable up to the level of the skull base. The vertebral arteries are codominant. The origin of the right vertebral artery is seen and is unremarkable. The origin of the left vertebral artery is seen and is unremarkable. There is no focal stenosis seen within the neck. There is no dissection. The vertebral arteries are well visualized to up to the level of the basilar artery. The osseous structures of the cervical spine are unremarkable. Included views through the intracranial structures demonstrate no acute abnormalities. IMPRESSION: 1. No evidence of stenosis or dissection in the common and internal carotid arteries. 2. No evidence of stenosis or dissection of the vertebral arteries. Dictated by: Dictated on workstation # [id number] Dict: 10/01/20 1738 Trans: 10/01/20 1749 [facility] [id number] Interpreted by: LUDA TRIPP DO NAME: WESLY NOYOLA MED REC#: [id number] PT STATUS: REG ER : 1960 PHYSICIAN: ABDI MENDEZ DO ADMIT DATE: 10/01/20/ER FS Signed Date of Exam:10/01/20 CHEST 1 VIEW AP/PA ONLY INDICATION: Left-sided chest pain. TECHNIQUE/COMPARISON: A frontal chest was obtained at 3:49 PM. There is no prior study for comparison. FINDINGS: The heart and mediastinal silhouette are normal in appearance. The lungs are clear. There is no pneumothorax or pleural fluid. IMPRESSION: Negative chest. 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 No evidence of stenosis or dissection of the vertebral arteries per CTA of the neck Discussion and Recomendations Sinus tachycardia likely secondary to PE Start BB and titrate dose as indicated Echocardiogram to eval structure and function Management of PE per pulmonary/medical services Request records from cardiology in [place] Management of neck/shoulder pain per medical services Monitor lab Replace electrolytes Add ASA d/t reported h/o CAD with stent placement Further recs will be based on her hospital course We would like to thank medical services for this consult YA EDDY Oct 02, 2020 11:35
--- NOTE | 2020-10-02 12:12 | History & Physical-Hospitalist ---
VALERIECOLTON Franco MED STUDENT 10/02/20 1212: History of Present Illness HPI/Chief Complaint CC: b/l PE HPI: This is a 59yoWF with no pcp in town due to recent move and a history of HLD, HTN, TN and CAD post stent placement, DM, ROBINA, GERD, neuropathy, fibromylagia and anxiety who presented to [facility] ED with neck pain radiating into arm without shortness of breath. Of note, patient drove 12 hours from [place] two days ago and received second Moderna shot last Monday. In the ED, she was found to be tachycardic in the 130s, negative troponin and ddimer 0.58. Pt had leukocytosis (19,000) and UA came back positive for UTI. CXR and CTA of neck were both negative and CTA chest showed pulmonary emboli in subsegmental arteries of all 5 lobes without significant right heart strain. She was given Lovenox, IVF and IV Rocephin for UTI and admitted to the ICU. Cardiology was consulted and performed echo today; awaiting results. Patient does complain of severe left thoracic shoulder pain, likely referred from PE, and b/l calf tenderness to palpation left more than right. Doppler U/S of both legs ordered for today. She will resume home meds and be monitored in the ICU today with therapeutic dosing of Lovenox. Source: patient, old records Exam Limitations: no limitations Date Seen 10/02/20 Time Seen by a Provider: 09:00 Attending Physician Justine Hernandez MD PCP Charly Valdez MD Referring Physician Date of Admission Oct 01, 2020 at 19:47 Home Medications & Allergies Home Medications Reviewed patient Home Medication Reconciliation performed by pharmacy medication reconciliations point of care technician and/or nursing. Patients Allergies have been reviewed. Allergies Allergies Coded Allergies Penicillins (Unverified Allergy, Mild, 03/21/14) azithromycin (Unverified Allergy, Mild, 03/21/14) Sulfa (Sulfonamide Antibiotics) (Verified Allergy, Unknown, 10/01/20) codeine (Verified Allergy, Unknown, 10/01/20) Patient Social History Marrital Status: Tobacco Use?: Yes Tobacco type used: Cigarettes Smoking Status: Current Everyday Smoker Smokeless Tobacco Frequency: Current Everyday User Use of E-Cig and/or Vaping dev: No Substance use?: No Alcohol Use?: Yes Alcohol Frequency: Rarely Immunizations Up To Date Influenza Vaccine Up-to-Date: Yes; Up-to-Date First/Initial COVID19 Vaccinat: 08/25/20 Second COVID19 Vaccination Bruce: 09/25/20 Tetanus Booster (TDap): Unknown Current Status status: No status: No Communicates: Verbally Primary Language: Turkmen Preferred Spoken Language: Turkmen Is interpretation needed?: No Sensory deficits: Vision impairment Implanted or Applied Medical D: CPAP (noncompliant) Past Medical History Surgeries: Yes Appendectomy, Coronary Stent, Gallbladder, 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, Orthopedic Respiratory: Yes COPD Cardiac: Yes ("Hole in heart") Coronary Artery Disease, Heart Attack, High Cholesterol, Hypertension Neuropathy [employer] WORK[employer] History: 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 Genitourinary: No Gastrointestinal: Yes Gastroesophageal Reflux Musculoskeletal: Yes Fibromyalgia, Gout Endocrine: Yes Diabetes, Insulin dep HEENT: No Cancer: No Psychosocial: Yes Anxiety, Depression Integumentary: No Review of Systems Constitutional: No chills, No dizziness, No fever, No weakness EENTM: No hearing loss, No blurred vision Respiratory: No cough, No hemoptysis, No phlegm; short of breath Cardiovascular: No chest pain, No edema, No syncope Gastrointestinal: No abdominal pain, No jaundice, No nausea, No vomiting Genitourinary: No frequency, No hematuria : No Musculoskeletal: gout, muscle pain, muscle stiffness, neck pain Skin: No pruritus, No rash Psychiatric/Neurological: Anxiety; Denies Headache, Denies Numbness, Denies Tingling Physical Exam Physical Exam Vital Signs Vital Signs - First Documented 10/01/20 10/02/20 15:36 05:00 Temp 37.2 Pulse 141 Resp 23 B/P (MAP) 154/86 (108) Pulse Ox 99 O2 Delivery Room Air O2 Flow Rate 2.00 Capillary Refill : Less Than 3 Seconds Height, Weight, BMI Height: 5'3" Weight: 201lbs. oz. 91.218252cs; 36.58 BMI Method: General Appearance: No Apparent Distress, WD/WN HEENT: PERRL/EOMI, Moist Mucous Membranes Neck: Normal Inspection, Limited Range of Motion, Tender Lateral Respiratory: No Accessory Muscle Use, No Respiratory Distress, Wheezing (expiratory) Cardiovascular: Regular Rate, Rhythm, No Edema, No JVD, No Murmur, Normal Peripheral Pulses Gastrointestinal: Normal Bowel Sounds, No Pulsatile Mass, Non Tender, Soft Back: Normal Inspection, Other (diffuse tenderness) Extremity: Normal Capillary Refill, Normal Inspection, No Pedal Edema, Calf Tenderness (L>R) Neurologic/Psychiatric: Alert, Oriented x3, No Motor/Sensory Deficits, Normal Mood/Affect Skin: Normal Color, Warm/Dry Lymphatic: No Adenopathy Results Results/Procedures Labs Laboratory Tests 10/01/20 15:49 10/02/20 03:30 Patient resulted labs reviewed. Imaging: Reviewed Imaging Report Assessment/Plan Admission Diagnosis Bilateral PE Admission Status: Inpatient Order (span 2 midnights) Reason for Inpatient Admission: Bilateral PE Assessment and Plan Assessment: Bilateral PE UTI Cervical Radiculopathy HLD HTN CAD w/ stent placement Hx TN ROBINA DM insulin dependent Anxiety and Depression GERD Tobacco dependence HPI: ICU monitoring Lovenox IV abx for UTI Doppler U/S b/l LE Cardiology consulted awaiting echo results Diagnosis/Problems Diagnosis/Problems (1) Urinary tract infection Status: Acute (2) Pulmonary emboli Status: Acute (3) Cervical radicular pain Status: Acute (4) HTN (hypertension) Status: Chronic (5) HLD (hyperlipidemia) Status: Chronic (6) CAD (coronary artery disease) Status: Chronic (7) Diabetes Status: Chronic Qualifiers: Diabetes mellitus type: type 2 (8) Coronary arteriosclerosis in patient with history of previous myocardial infarction Status: Chronic (9) GERD (gastroesophageal reflux disease) Status: Chronic (10) ROBINA (obstructive sleep apnea) Status: Chronic (11) Anxiety associated with depression Status: Chronic MIA RODRIGUEZ DO 10/03/20 0708: History of Present Illness HPI/Chief Complaint CC: Dyspnea HPI: This is a 59yoWF who presented to the [facility] ER with dyspnea and upon w/u was found to have bilateral PE. Lovenox initiated and patient was placed in ICU. Cardiology consulted and ECHO ordered. Source: patient Exam Limitations: no limitations Patient Social History Marrital Status: Smoking Status: Current Everyday Smoker Review of Systems Constitutional: see HPI Respiratory: dyspnea on exertion Musculoskeletal: back pain, muscle cramps Physical Exam Physical Exam General Appearance: No Apparent Distress, Chronically ill, Obese Respiratory: Lungs Clear Cardiovascular: Regular Rate, Rhythm Neurologic/Psychiatric: Alert, Oriented x3 Assessment/Plan Admission Diagnosis Assessment: Bilateral PE Hypoxia Fibromyalgia N/V Plan: Cardiology ECHO Admission Status: Inpatient Order (span 2 midnights) Reason for Inpatient Admission: pe Supervisory-Addendum Brief Verification & Attestation Participated in pt care: history, MDM, physical Personally performed: exam, history, MDM, supervision of care Care discussed with: Medical Student Procedures: n/a Results interpretation: Verified all documentation Verification and Attestation of Medical Student E/M Service A medical student performed and documented this service in my presence. I reviewed and verified all information documented by the medical student and made modifications to such information, when appropriate. I personally performed the physical exam and medical decision making. Mia Rodriguez, Oct 03, 2020,07:06 COLTON PRINGLE MED STUDENT Oct 02, 2020 12:12 MIA RODRIGUEZ DO Oct 03, 2020 07:08
[2020-10-02] MEDS ORDERED: ASPIRIN 81 MG CHEW (CHILDREN'S ASA) PO NR (13:15)
[2020-10-02] MEDS ORDERED: meTOprolol TARTRATE 25 MG (LOPRESSOR) TABLET PO NR (13:15)
[2020-10-02] MEDS: inSUlin ASPART (NovoLOG) 1 UNIT/0.01 ML (CHARGE PER UNIT) SC SCH ×3 (14:59→21:01)
[2020-10-02] MEDS: DICLOFENAC 1% GEL 100 GM (VOLTAREN) TUBE TOP SCH ×3 (15:05→21:06)
--- NOTE | 2020-10-02 15:33 | Diagnostic Imaging Report ---
PROCEDURE: US Venous Lower Ext Stiven. TECHNIQUE: Multiple real-time grayscale images were obtained over the lower extremities in various projections, bilaterally. Additional duplex Doppler and color Doppler images were also obtained. INDICATION: Pulmonary embolism. FINDINGS: There is no evidence of right or left lower extremity DVT. Both lower extremity deep venous systems demonstrate normal compressibility with normal response to augmentation and Valsalva. No fluid collection or mass is detected. IMPRESSION: No evidence of right or left lower extremity DVT. Dictated by: Dictated on workstation # [id number]
[2020-10-02] MEDS: HYDROcodone/APAP 7.5 MG/325 MG (LORTAB, LORCET PLUS) TABLET PO PRN ×2 (15:40→21:01)
--- NOTE | 2020-10-02 16:15 | Consultation-Cardiology ---
HPI-Cardiology Cardiology Consultation: Date of Consultation 10/02/20 Time Seen by a Provider: 15:50 Date of Admission Attending Physician Justine Hernandez MD Admitting Physician Charly Valdez MD Consulting Physician MALA MOY MD, MA, FACP, FACC, FSCAI, CCDS HPI: Chief Complaint: SOB PE Sinus tachycardia HPI Ms. Noyola is a 59 yr old female admitted to ICU 4 from [facility] ED. She reports she and her friend are moving back to the area from [place]. She reports they were in the car for approx 8-10 hours only stopping briefly for restroom breaks. She states she began to have left sided neck, shoulder and upper arm pain which is worse with movement and palpation. She then presented to Urgent Care at [facility] and was directed to the ED d/t HR in the 180's, for which she was asymptomatic. She reports she has chronic SOB, but felt it had been somewhat worse the last couple days. She denies any c/o CP. She reports chronic bilat LE swelling, which is unchanged in the recent past. She denies any c/o palpitations, syncope or near syncope. She reports chronic joint, back and muscle pain for which she is on chronic narcotic tx. She states she is feeling better at this time. She reports her neck pain is better, but very tender to the touch and with movement. She reports she had her second COVID vaccine a week ago. No c/o fever or chills. States she has chronic hot flashes. Review of Systems-Cardiology Review of Systems Constitutional: No chills, No fever; malaise Eyes: No vision change Ears/Nose/Throat: No epistaxis, No recent hearing loss Respiratory: As described under HPI Cardiovascular: As described under HPI Gastrointestinal: As described under HPI Genitourinary: No dysuria, No hematuria : No Musculoskeletal: As describe under HPI, back pain, joint pain, muscle pain Skin: No rash on exposed areas, No ulcerations on exposed areas Psychiatric/Neurological: No anxiety, No depression, No seizure, No focal weakness, No syncope Hematologic: No bleeding abnormalities All Other Systems Reviewed Negative Unless Noted: Yes [id number] Hx Patient Social History Marrital Status: Smoking Status: Current Everyday Smoker 2nd Hand Smoke Exposure: No Have you traveled recently?: No Alcohol Use?: Yes Tobacco type used: Cigarettes Immunizations Up To Date Date of Influenza Vaccine: May 03, 2020 Past Medical History PMH As described under Assessment. Family Medical History Family Medical History: She reports her mother had CAD with stent placement. She reports her brothers and sisters "all have heart troubles". Allergies and Home Medications Allergies Coded Allergies: Penicillins (Unverified Allergy, Mild, 03/21/14) azithromycin (Unverified Allergy, Mild, 03/21/14) Sulfa (Sulfonamide Antibiotics) (Verified Allergy, Unknown, 10/01/20) codeine (Verified Allergy, Unknown, 10/01/20) Home Medications Albuterol Sulfate 1 Puff Puff, 2 PUFF IH Q4H PRN for SHORTNESS OF BREATH, (Reported) Last Action: Reviewed Allopurinol 100 Mg Tablet, 100 MG PO 1200,2200, (Reported) Last Action: Reviewed Amlodipine Besylate 5 Mg Tablet, 5 MG PO 1999, (Reported) Last Action: Reviewed Aspirin 81 Mg Tablet.dr, 162 MG PO DAILY, (Reported) TAKES 2 (81NG) TABS Last Action: Reviewed Atorvastatin Calcium 40 Mg Tablet, 40 MG PO HS, (Reported) Last Action: Reviewed Diphenhydramine HCl 25 Mg Capsule, 25 MG PO HS, (Reported) Last Action: Reviewed Fluticasone Propionate 9.9 Ml [place].susp, 1-2 SPR[place] NS DAILY PRN for CONGESTION, (Reported) Last Action: Reviewed Gabapentin 300 Mg Capsule, 300 MG PO TID, (Reported) Last Action: Reviewed Gemfibrozil 600 Mg Tablet, 600 MG PO BID, (Reported) Last Action: Reviewed Hydrocodone/Acetaminophen 1 Each Tablet, 1 EACH PO Q6H PRN for PAIN-MODERATE (5- 7), (Reported) Last Action: Reviewed Insulin NPL/Insulin Lispro 100 Unit/1 Ml Insuln.pen, 90 UNIT SQ BID, (Reported) Last Action: Reviewed Insulin NPL/Insulin Lispro 100 Unit/1 Ml Insuln.pen, 60 UNIT SQ 1200, (Reported) Last Action: Reviewed Isosorbide Mononitrate 120 Mg Tab.er.24h, 120 MG PO 1999, (Reported) Last Action: Reviewed Lisinopril 10 Mg Tablet, 10 MG PO 1200, (Reported) Last Action: Reviewed Melatonin 10 Mg Tablet, 10 MG PO HS, (Reported) Last Action: Reviewed Meloxicam 15 Mg Tablet, 15 MG PO HS, (Reported) Last Action: Reviewed Metformin HCl 1,000 Mg Tablet, 1,000 MG PO 1200,2200, (Reported) Last Action: Reviewed Metoprolol Succinate 100 Mg Tab.er.24h, 100 MG PO 1800, (Reported) Last Action: Reviewed Montelukast Sodium 10 Mg Tablet, 10 MG PO HS, (Reported) Last Action: Reviewed Nitroglycerin 0.4 Mg Tab.subl, 0.4 MG SL UD PRN for CHEST PAIN, (Reported) Last Action: Reviewed Pantoprazole Sodium 40 Mg Tablet.dr, 40 MG PO HS, (Reported) Last Action: Reviewed Ranolazine 500 Mg Tab.er.12h, 500 MG PO 1200,2200, (Reported) Last Action: Reviewed Sitagliptin Phosphate 100 Mg Tablet, 100 MG PO DAILY, (Reported) Last Action: Reviewed Venlafaxine HCl 75 Mg Tab.er.24, 75 MG PO 1800, (Reported) Last Action: Last Taken Edited Patient Home Medication List Home Medication List Reviewed: Yes Physical Exam-Cardiology Physical Exam Vital Signs/I&O 10/02/20 10/02/20 10/02/20 10/02/20 05:00 05:34 06:00 07:00 Pulse 108 112 108 Resp 18 18 B/P (MAP) 130/89 (103) 130/98 (109) Pulse Ox 97 94 98 O2 Delivery Nasal Cannula Room Air Nasal Cannula O2 Flow Rate 2.00 2.00 10/02/20 10/02/20 10/02/20 10/02/20 07:00 08:00 08:12 09:00 Temp 36.0 Pulse 109 112 Resp 17 14 B/P (MAP) 143/82 (102) 122/78 (93) Pulse Ox 97 98 94 O2 Delivery Nasal Cannula Nasal Cannula Room Air O2 Flow Rate 2.00 2.00 10/02/20 10/02/20 10/02/20 10/02/20 11:37 12:00 12:42 15:34 Temp 36.2 36.5 Pulse 104 118 Resp 15 B/P (MAP) 131/80 (97) Pulse Ox 98 O2 Delivery Nasal Cannula O2 Flow Rate 2.00 10/02/20 16:00 Pulse 118 Resp 20 B/P (MAP) 133/84 (100) Pulse Ox 95 O2 Delivery Nasal Cannula O2 Flow Rate 2.00 10/02/20 00:00 Intake Total 700 ml Output Total 700 ml Balance 0 ml Capillary Refill : Less Than 3 Seconds Constitutional: AAO x 3, well-developed, well-nourished HEENT: PERRL, hearing is well preserved, oral hygience is good Neck: No carotid bruit; carotid pulses are 2 + bilaterally Respiratory: No accessory muscle use, No respiratory distress; chest expansion is symmetric, chest is bilaterally symmetric, lungs clear to auscultation, other (prolonged exp phase) Gastrointestinal: soft, round; No guarding; audible bowel sounds Extremities: no lower extremity edema bilateral Neurologic/Psychiatric: grossly intact (moves all extremities) Skin: No rash on exposed areas, No ulcerations on exposed areas Data Review Labs Laboratory Tests 10/01/20 16:17: Urine Color DK YELLOW, Urine Clarity SLT CLLUDY, Urine pH 5.5, Urine Specific [place] >=1.030, Urine Protein 1+H, Urine Glucose (UA) 2+H, Urine Ketones NEGATIVE, Urine Nitrite NEGATIVE, Urine Bilirubin 1+H, Urine Urobilinogen 0.2, Urine Leukocyte Esterase 2+H, Urine RBC (Auto) TRACEH, Urine RBC NONE, Urine WBC 25-50H, Urine Squamous Epithelial Cells 5-10, Urine Crystals NONE, Urine Bacteria TRACE, Urine Casts NONE, Urine Mucus NEGATIVE, Urine Culture Indicated YES, Urine Opiates Screen POSITIVEH, Urine Oxycodone Screen NEGATIVE, Urine Methadone Screen NEGATIVE, Urine Propoxyphene Screen NEGATIVE, Urine Barbiturates Screen NEGATIVE, Ur Tricyclic Antidepressants Screen POSITIVEH, Urine Phencyclidine Screen NEGATIVE, Urine Amphetamines Screen NEGATIVE, Urine Methamphetamines Screen NEGATIVE, Urine Benzodiazepines Screen NEGATIVE, Urine Cocaine Screen NEGATIVE, Urine Cannabinoids Screen NEGATIVE 10/01/20 18:16: Lactic Acid Level 1.58 10/01/20 20:56: Glucometer 79 10/02/20 03:30: White Blood Count 10.7, Red Blood Count 3.82, Hemoglobin 11.4L, Hematocrit 36, Mean Corpuscular Volume 94, Mean Corpuscular Hemoglobin 30, Mean Corpuscular Hemoglobin Concent 32, Red Cell Distribution Width 20.4H, Platelet Count 340, Mean Platelet Volume 11.7, Immature Granulocyte % (Auto) 0, Neutrophils (%) (Auto) 53, Lymphocytes (%) (Auto) 32, Monocytes (%) (Auto) 11, Eosinophils (%) ( Auto) 4, Basophils (%) (Auto) 1, Neutrophils # (Auto) 5.7, Lymphocytes # (Auto) 3.4, Monocytes # (Auto) 1.1H, Eosinophils # (Auto) 0.4H, Basophils # (Auto) 0.1, Immature Granulocyte # (Auto) 0.0, Sodium Level 134L, Potassium Level 4.0, Chloride Level 103, Carbon Dioxide Level 18L, Anion Gap 13, Blood Urea Nitrogen 16, Creatinine 1.04, Estimat Glomerular Filtration Rate 54, BUN/Creatinine Ratio 15, Glucose Level 195H, Calcium Level 8.8, Corrected Calcium 9.3, Total Bilirubin 0.2, Aspartate Amino Transf (AST/SGOT) 37H, Alanine Aminotransferase (ALT/SGPT) 38, Alkaline Phosphatase 115, Troponin I < 0.028, Total Protein 6.6, Albumin 3.4 10/02/20 15:24: Glucometer 354H Microbiology 10/01/20 Urine Culture - Preliminary, Resulted Probable Coag Negative Staph A/P-Cardiology Assessment/Admission Diagnosis Pulmonary emboli in the subsegmental arteries in all five lobes per CT of the chest of 10-01-20 CAD - reports h/o stent placement in [place], [place] approx 15 yrs ago - reports last cardiac cath in [place], [place] which she reports she did not have any stent placement 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 No evidence of stenosis or dissection of the vertebral arteries per CTA of the neck Discussion and Recomendations Sinus tachycardia likely secondary to PE. Start BB and titrate dose as indicated Echocardiogram to eval structure and function Management of PE per pulmonary/medical services Request records from cardiology in [place] Management of neck/shoulder pain per medical services Monitor lab Replace electrolytes Add ASA d/t reported h/o CAD with stent placement Further recs will be based on her hospital course We would like to thank medical services for this consult MALA MOY MD FACP FAC CCDS Oct 02, 2020 16:15
[2020-10-02] MEDS: cefTRIAXone 1,000 MG/SWFI 10 ML IV PUSH IV SCH ×2 (21:00)
[2020-10-02] MEDS: meTOprolol TARTRATE 25 MG (LOPRESSOR) TABLET PO SCH (21:01)
[2020-10-02] MEDS ORDERED: ONDANSETRON 4 MG/2 ML (SDV) Z0FRAN ONE (23:06)
[2020-10-02] MEDS ORDERED: ONDANSETRON 4 MG/2 ML (SDV) Z0FRAN IVP PRN (23:15)
[2020-10-02] MEDS ORDERED: PROMETHAZINE INJ 25 MG/ML (PHENERGAN) AMP IVP PRN (23:30)
[2020-10-02] MEDS ORDERED: PANTOPRAZOLE 40 MG (PROTONIX) TAB PO ONE (23:30)
[2020-10-03] MEDS: inSUlin ASPART (NovoLOG) 1 UNIT/0.01 ML (CHARGE PER UNIT) SC SCH ×4 (05:22→20:50)
[2020-10-03] MEDS: ENOXAPARIN 100 MG/1 ML (LOVENOX) SYR SC SCH (05:22)
[2020-10-03] MEDS: CATHETER FLUSH 10 ML SYR IV SCH ×3 (05:23→21:29)
[2020-10-03] MEDS: GABAPENTIN 300 MG (NEURONTIN) CAP PO SCH ×3 (08:10→20:50)
[2020-10-03] MEDS: NICOTINE 14 MG (NICODERM) PATCH TD SCH (08:10)
[2020-10-03] MEDS: DICLOFENAC 1% GEL 100 GM (VOLTAREN) TUBE TOP SCH ×4 (08:10→20:50)
[2020-10-03] MEDS: ALLOPURINOL 100 MG (ZYLOPRIM) TAB PO SCH ×3 (08:10→21:28)
[2020-10-03] MEDS: meTOprolol TARTRATE 25 MG (LOPRESSOR) TABLET PO SCH (08:10)
[2020-10-03] MEDS: NICOTINE PATCH REMOVAL TP SCH (08:11)
[2020-10-03] MEDS: HYDROcodone/APAP 7.5 MG/325 MG (LORTAB, LORCET PLUS) TABLET PO PRN ×2 (08:19→16:34)
[2020-10-03] MEDS ORDERED: ASPIRIN 81 MG CHEW (CHILDREN'S ASA) PO SCH (09:00)
--- NOTE | 2020-10-03 11:40 | Progress Note - Hospitalist ---
Subjective HPI/CC On Admission Date Seen by Provider: Oct 03, 2020 Time Seen by Provider: 11:00 CC: Dyspnea HPI: This is a 59yoWF who presented to the [facility] ER with dyspnea and upon w/u was found to have bilateral PE. Lovenox initiated and patient was placed in ICU. Cardiology consulted and ECHO ordered. Subjective/Events-last exam Patient doing well Improved status Cardiology evaluated her She will establish with Dr Love as outpatient No bleeding issues Lovenox changed to Eliquis O2 maintained Zofran ordered Left shoulder xray ordered Xanax needed for her nerves Added some labs and she needed Vit B12 injection so I ordered that Review of Systems General: Fatigue Pulmonary: Dyspnea Focused Exam Lactate Level 10/01/20 18:16: Lactic Acid Level 1.58 Objective Exam Vital Signs Vital Signs Date Time Temp Pulse Resp B/P (MAP) Pulse Ox O2 Delivery O2 Flow Rate FiO2 10/03/20 20:12 35.9 80 22 151/78 (102) 97 Room Air 10/03/20 14:33 2.00 Capillary Refill : Less Than 3 Seconds General Appearance: No Apparent Distress, WD/WN, Chronically ill Respiratory: Lungs Clear Cardiovascular: Regular Rate, Rhythm Neurologic/Psychiatric: Alert, Oriented x3 Results/Procedures Lab Patient resulted labs reviewed. Imaging: Reviewed Imaging Report Assessment/Plan Assessment and Plan Assess & Plan/Chief Complaint Assessment: Bilateral PE Hypoxia Fibromyalgia Chronic pain Anxiety DM Anemia B12 def Plan: Vit B12 Move to floor Left shoulder xray Diagnosis/Problems Diagnosis/Problems (1) Pulmonary emboli Status: Acute (2) Cervical radicular pain Status: Acute (3) CAD (coronary artery disease) Status: Chronic (4) Diabetes Status: Chronic Qualifiers: Diabetes mellitus type: type 2 (5) GERD (gastroesophageal reflux disease) Status: Chronic (6) HLD (hyperlipidemia) Status: Chronic (7) HTN (hypertension) Status: Chronic (8) ROBINA (obstructive sleep apnea) Status: Chronic (9) Anxiety associated with depression Status: Chronic (10) Coronary arteriosclerosis in patient with history of previous myocardial infarction Status: Chronic JEREMY RODRIGUEZ DO Oct 03, 2020 11:40
[2020-10-03] MEDS ORDERED: RT-ALBUTEROL SULF 2.5 MG/3 ML PRE-MIX VIAL IH PRN (11:45)
[2020-10-03] MEDS ORDERED: NITROGLYCERIN 0.4 MG SL TABS BTL 25'S SL PRN (11:45)
[2020-10-03] MEDS ORDERED: INSULIN LISPRO SQ SCH ×2 (12:00→21:00)
[2020-10-03] MEDS ORDERED: CYANOCOBALAMIN INJ 1000 MCG/ML IM ONE (12:00)
[2020-10-03] MEDS ORDERED: [UNRECOGNIZED DRUG - OTHER] SQ SCH (12:00)
[2020-10-03] MEDS ORDERED: INSULIN NPL SQ SCH ×2 (12:00→21:00)
[2020-10-03] MEDS ORDERED: ALPRAZolam 0.5 MG (XANAX) TAB PO PRN (12:00)
[2020-10-03] MEDS: ACETAMINOPHEN 325 MG TABLET PO PRN (12:08)
[2020-10-03] MEDS: lisINopril 10 MG (PRINIVIL) TABLET PO SCH (12:09)
[2020-10-03] MEDS: RANOLAZINE ER 500 MG TAB (RANEXA) PO SCH ×2 (12:09→21:28)
[2020-10-03] MEDS ORDERED: FLUTICASONE NASAL SPRAY (FLONASE) 16 GM BTL NS PRN (12:15)
[2020-10-03 12:29] LABS: RETICULOCYTE % 2.1 % (0.50-2.40)
--- NOTE | 2020-10-03 12:57 | Diagnostic Imaging Report ---
INDICATION: Left shoulder pain. COMPARISON: None available. TECHNIQUE: 3 views of left shoulder were obtained. FINDINGS: Glenohumeral alignment is normal. Mild hypertrophic degenerative arthritis of the AC joint without dislocation. No fracture. Subacromial space is preserved. No abnormal soft tissue mineralizations. IMPRESSION: 1. Moderate degenerative arthritis of the left AC joint. 2. No acute osseous abnormality. Dictated by: Dictated on workstation # [id number]
--- NOTE | 2020-10-03 14:39 | Progress Note - Cardiology ---
Cardiology SOAP Progress Note Subjective: L neck and L shoulder pain better but not resolved No cp or palp or syncope No n/v/d Shortness of breath better Objective: I&O/Vital Signs 10/03/20 10/03/20 10/03/20 10/03/20 04:00 07:00 08:00 08:14 Temp 36.3 36.5 Pulse 75 83 89 Resp 9 B/P (MAP) 129/96 (107) 141/106 (118) Pulse Ox 97 98 O2 Delivery Nasal Cannula Nasal Cannula O2 Flow Rate 2.00 2.00 10/03/20 10/03/20 10/03/20 10/03/20 08:29 12:00 12:16 12:37 Temp 35.7 Pulse 82 82 Resp 33 B/P (MAP) 122/73 (89) Pulse Ox 99 97 O2 Delivery Nasal Cannula Nasal Cannula O2 Flow Rate 2.00 10/03/20 14:33 Temp 35.0 Pulse 78 Resp 20 B/P (MAP) 146/71 (96) Pulse Ox 96 O2 Delivery Nasal Cannula O2 Flow Rate 2.00 10/03/20 00:00 Intake Total 1250 ml Output Total 1250 ml Balance 0 ml Weight (Pounds): 201 Weight (Calculated Kilograms): 91.611050 Constitutional: AAO x 3, well-developed, well-nourished Respiratory: No accessory muscle use, No respiratory distress; chest expansion is symmetric, chest is bilaterally symmetric, lungs clear to auscultation, other (prolonged exp phase) Gastrointestional: soft, round; No guarding; audible bowel sounds Extremities: no lower extremity edema bilateral Neurologic/Psychiatric: grossly intact (moves all extremities) Skin: No rash on exposed areas, No ulcerations on exposed areas Results/Procedures: Labs Laboratory Tests 10/02/20 15:24: Glucometer 354H 10/02/20 19:57: Glucometer 346H 10/03/20 05:18: Glucometer 273H 10/03/20 10:28: Glucometer 316H 10/03/20 12:15: Red Blood Count 3.81, Absolute Reticulocyte Count 80, Percent Reticulocyte Count 2.10 Microbiology 10/01/20 Blood Culture - Preliminary, Resulted No growth 10/01/20 Urine Culture - Final, Complete >=3 Gram Positive Isolates Laboratory Tests 10/01/20 15:49 4/23/21 03:30 A/P: Assessment: Pulmonary emboli in the subsegmental arteries in all five lobes per CT of the chest of 10-01-20 - Echo of 10/02/20: LVEF 50-55%, grade 1 white dysfunction, no evidence of RV strain CAD - reports h/o stent placement in [place], [place] approx 15 yrs ago - reports last cardiac cath in [place], [place] which she reports she did not have any stent placement 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 No evidence of stenosis or dissection of the vertebral arteries per CTA of the neck Plan: Continue anticoag and antiplatelet therapy Management of neck/shoulder pain per medical services Monitor lab MALA MOY MD FACP FAC CCDS Oct 03, 2020 14:39
[2020-10-03] MEDS ORDERED: meTOprolol SUCCINATE 100 MG (TOPROL XL) TAB PO SCH (18:00)
[2020-10-03] MEDS ORDERED: amLODIPine 5 MG (NORVASC) TAB PO SCH (20:00)
[2020-10-03] MEDS ORDERED: ISOSORBIDE MONONITRATE 60 MG (IMDUR) TAB PO SCH (20:00)
[2020-10-03] MEDS: APIXABAN 5 MG (ELIQUIS) TABLET PO SCH (20:48)
[2020-10-03] MEDS: GEMFIBROZIL 600 MG (LOPID) TAB PO SCH (20:49)
[2020-10-03] MEDS ORDERED: MELOXICAM 7.5 MG (MOBIC) TABLET PO SCH (21:00)
[2020-10-03] MEDS ORDERED: diphenhydrAMINE 25 MG TAB (BENADRYL) PO SCH (21:00)
[2020-10-03] MEDS ORDERED: [UNRECOGNIZED DRUG - OTHER] SQ SCH (21:00)
[2020-10-03] MEDS ORDERED: PANTOPRAZOLE 40 MG (PROTONIX) TAB PO SCH (21:00)
[2020-10-03] MEDS ORDERED: MONTELUKAST 10 MG (SINGULAIR) TAB PO SCH (21:00)
[2020-10-03] MEDS ORDERED: MELATONIN 10 MG TABLET PO SCH (21:00)
[2020-10-03] MEDS: metFORMIN 500 MG (GLUCOPHAGE) TAB PO SCH (21:28)
[2020-10-04] MEDS: CATHETER FLUSH 10 ML SYR IV SCH ×2 (05:43→11:45)
[2020-10-04] MEDS: inSUlin ASPART (NovoLOG) 1 UNIT/0.01 ML (CHARGE PER UNIT) SC SCH ×2 (05:44→11:44)
[2020-10-04 07:11] LABS: BASOPHILS # (AUTO) 0.1 10^3/uL (0.0-0.1); BASOPHILS % (AUTO) 1 % (0-10); EOSINOPHILS # (AUTO) 0.4 10^3/uL (0.0-0.3); EOSINOPHILS % (AUTO) 5 % (0-10); HEMATOCRIT 37 % (35-52); HEMOGLOBIN 11.4 g/dL (11.5-16.0); LYMPHOCYTES # (AUTO) 2.3 10^3/uL (1.0-4.0); LYMPHOCYTES % (AUTO) 27 % (12-44); MEAN CORPUSCULAR HEMOGLOBIN 29 pg (25-34); MEAN CORPUSCULAR HGB CONC 31 g/dL (32-36); MEAN CORPUSCULAR VOLUME 94 fL (80-99); MONOCYTES # (AUTO) 0.7 10^3/uL (0.0-1.0); MONOCYTES % (AUTO) 9 % (0-12); NEUTROPHILS # (AUTO) 4.8 10^3/uL (1.8-7.8); NEUTROPHILS % (AUTO) 58 % (42-75); PLATELET COUNT 325 10^3/uL (130-400); WHITE BLOOD COUNT 8.3 10^3/uL (4.3-11.0)
[2020-10-04] MEDS: NICOTINE 14 MG (NICODERM) PATCH TD SCH (07:25)
[2020-10-04] MEDS: GABAPENTIN 300 MG (NEURONTIN) CAP PO SCH ×2 (07:25→11:45)
[2020-10-04] MEDS: GEMFIBROZIL 600 MG (LOPID) TAB PO SCH (07:25)
[2020-10-04] MEDS: NICOTINE PATCH REMOVAL TP SCH (07:26)
[2020-10-04] MEDS: HYDROcodone/APAP 7.5 MG/325 MG (LORTAB, LORCET PLUS) TABLET PO PRN (07:26)
[2020-10-04] MEDS: APIXABAN 5 MG (ELIQUIS) TABLET PO SCH (07:26)
[2020-10-04] MEDS: DICLOFENAC 1% GEL 100 GM (VOLTAREN) TUBE TOP SCH ×2 (07:27→11:45)
[2020-10-04 07:46] LABS: ALBUMIN 3.5 GM/DL (3.2-4.5); BILIRUBIN,TOTAL 0.3 MG/DL (0.1-1.0); CALCIUM 9.8 MG/DL (8.5-10.1); CREATININE SERUM 1.1 MG/DL (0.60-1.30); TOTAL PROTEIN 6.9 GM/DL (6.4-8.2)
[2020-10-04] MEDS ORDERED: ASPIRIN E.C. 81 MG (ECOTRIN) TAB PO SCH (09:00)
[2020-10-04] MEDS: ACETAMINOPHEN 325 MG TABLET PO PRN (09:42)
[2020-10-04] MEDS: RANOLAZINE ER 500 MG TAB (RANEXA) PO SCH (11:45)
[2020-10-04] MEDS: ALLOPURINOL 100 MG (ZYLOPRIM) TAB PO SCH (11:45)
[2020-10-04] MEDS: metFORMIN 500 MG (GLUCOPHAGE) TAB PO SCH (11:45)
[2020-10-04] MEDS: lisINopril 10 MG (PRINIVIL) TABLET PO SCH (11:45)
[2020-10-04 12:00] VITALS: BP 148/74
[2020-10-04] MEDS ORDERED: ALPR0.5T7 PO (12:56)
[2020-10-04] MEDS ORDERED: NICO1PAT38 TD (12:56)
[2020-10-04] MEDS ORDERED: APIX5TAB PO (12:56)
[2020-10-04] MEDS ORDERED: HYDR-3817 PO (12:56)
--- NOTE | 2020-10-04 13:00 | Discharge Summary ---
Discharge Summary Hospital Course Was the Problem List Reviewed?: Yes Problems/Dx: (1) Pulmonary emboli Status: Acute (2) Cervical radicular pain Status: Acute (3) CAD (coronary artery disease) Status: Chronic (4) Diabetes Status: Chronic Qualifiers: (5) GERD (gastroesophageal reflux disease) Status: Chronic (6) HLD (hyperlipidemia) Status: Chronic (7) HTN (hypertension) Status: Chronic (8) ROBINA (obstructive sleep apnea) Status: Chronic (9) Anxiety associated with depression Status: Chronic (10) Coronary arteriosclerosis in patient with history of previous myocardial infarction Status: Chronic Hospital Course Date of Admission: Oct 01, 2020 at 19:47 Admission Diagnosis : Family Physician/Provider: Charly Valdez MD Date of Discharge: 10/04/20 Discharge Diagnosis: B/L PE, recent long travel, DM, HTN, anemia Hospital Course: Short course after admitted for hypoxia and bilateral PE with presumed UTI and DM OOC. Patient was admitted and placed on Lovenox and maintained in the ICU. Lovenox transitioned to Eliquis. Home meds restarted. Insulin restarted for elevated sugar. UA final report with Cx revealed no infection so abx stopped. Overall she was stable and weaned off O2 and was DC in improved condition. Smoking cessation counseled. Labs and Pending Lab Test: Laboratory Tests 10/03/20 16:34: Glucometer 301H 10/03/20 20:36: Glucometer 367H 10/04/20 05:33: Glucometer 296H 10/04/20 06:47: White Blood Count 8.3, Red Blood Count 3.92, Hemoglobin 11.4L, Hematocrit 37, Mean Corpuscular Volume 94, Mean Corpuscular Hemoglobin 29, Mean Corpuscular Hemoglobin Concent 31L, Red Cell Distribution Width 19.7H, Platelet Count 325, Mean Platelet Volume 12.0, Immature Granulocyte % (Auto) 0, Neutrophils (%) (Auto) 58, Lymphocytes (%) (Auto) 27, Monocytes (%) (Auto) 9, Eosinophils (%) (Auto) 5, Basophils (%) (Auto) 1, Neutrophils # (Auto) 4.8, Lymphocytes # (Auto) 2.3, Monocytes # (Auto) 0.7, Eosinophils # (Auto) 0.4H, Basophils # (Auto) 0.1, Immature Granulocyte # (Auto) 0.0, Sodium Level 135, Potassium Level 5.0, Chloride Level 102, Carbon Dioxide Level 24, Anion Gap 9, Blood Urea Nitrogen 17, Creatinine 1.10, Estimat Glomerular Filtration Rate 51, BUN/Creatinine Ratio 15, Glucose Level 317H, Calcium Level 9.8, Corrected Calcium 10.2H, Total Bilirubin 0.3, Aspartate Amino Transf (AST/SGOT) 38H, Alanine Aminotransferase (ALT/SGPT) 42, Alkaline Phosphatase 113, Total Protein 6.9, Albumin 3.5, Triglycerides Level 408H, Cholesterol Level 174, LDL Cholesterol Direct 95, VLDL Cholesterol 82H, HDL Cholesterol 28L, Thyroid Stimulating Hormone (TSH) 3.25 Microbiology 10/01/20 Blood Culture - Preliminary, Resulted No growth 10/01/20 Urine Culture - Final, Complete >=3 Gram Positive Isolates Home Meds Active Alprazolam 0.5 Mg Tablet 0.5 Mg PO Q6HR PRN Eliquis (Apixaban) 5 Mg Tablet 10 Mg PO BID Nicoderm Cq (Nicotine) 1 Each Patch.td24 14 Mg TD DAILY@0900 Hydrocodone-Acetamin 7.5-325 (Hydrocodone/Acetaminophen) 1 Each Tablet 1 Each PO Q6H PRN Reported Humalog Mix 50-50 Kwikpen (Insulin NPL/Insulin Lispro) 100 Unit/1 Ml Insuln.pen 60 Unit SQ 1200 Benadryl (Diphenhydramine HCl) 25 Mg Capsule 25 Mg PO HS Melatonin 10 Mg Tablet 10 Mg PO HS Flonase Allergy Relief (Fluticasone Propionate) 9.9 Ml [place].susp 1-2 [place] NS DAILY PRN Metformin HCl 1,000 Mg Tablet 1,000 Mg PO 1200,2200 Neurontin (Gabapentin) 300 Mg Capsule 300 Mg PO TID Venlafaxine HCl ER (Venlafaxine HCl) 75 Mg Tab.er.24 75 Mg PO 1800 Ranolazine ER (Ranolazine) 500 Mg Tab.er.12h 500 Mg PO 1200,2200 Proair Hfa (Albuterol Sulfate) 1 Puff Puff 2 Puff IH Q4H PRN Pantoprazole Sodium 40 Mg Tablet.dr 40 Mg PO HS Nitroglycerin 0.4 Mg Tab.subl 0.4 Mg SL UD PRN Montelukast Sodium 10 Mg Tablet 10 Mg PO HS Metoprolol Succinate 100 Mg Tab.er.24h 100 Mg PO 1800 Meloxicam 15 Mg Tablet 15 Mg PO HS Lisinopril 10 Mg Tablet 10 Mg PO 1200 Januvia (Sitagliptin Phosphate) 100 Mg Tablet 100 Mg PO DAILY Isosorbide Mononitrate ER (Isosorbide Mononitrate) 120 Mg Tab.er.24h 120 Mg PO 2000 Humalog Mix 50-50 Kwikpen (Insulin NPL/Insulin Lispro) 100 Unit/1 Ml Insuln.pen 90 Unit SQ BID Gemfibrozil 600 Mg Tablet 600 Mg PO BID Atorvastatin Calcium 40 Mg Tablet 40 Mg PO HS Aspirin EC (Aspirin) 81 Mg Tablet.dr 162 Mg PO DAILY TAKES 2 (81NG) TABS Amlodipine Besylate 5 Mg Tablet 5 Mg PO 2000 Allopurinol 100 Mg Tablet 100 Mg PO 1200,2200 Assessment/Pt Instructions Dr Cr in 2 weeks Discharge Planning: <30 minutes discharge planning Discharge Instructions Discharge Diet: ADA Diet Activity as Tolerated: Yes Discharge Physical Examination Vital Signs Vital Signs Date Time Temp Pulse Resp B/P (MAP) Pulse Ox O2 Delivery O2 Flow Rate FiO2 10/04/20 12:34 77 10/04/20 11:43 35.5 20 148/74 (98) 96 Room Air 10/03/20 14:33 2.00 General Appearance: No Apparent Distress, WD/WN, Chronically ill Respiratory: Lungs Clear, Normal Breath Sounds Cardiovascular: Regular Rate, Rhythm Neurologic/Psychiatric: Alert, Oriented x3 Allergies: Coded Allergies: Penicillins (Unverified Allergy, Mild, 03/21/14) azithromycin (Unverified Allergy, Mild, 03/21/14) Sulfa (Sulfonamide Antibiotics) (Verified Allergy, Unknown, 10/01/20) codeine (Verified Allergy, Unknown, 10/01/20) morphine (Unverified Allergy, Unknown, 10/03/20) PT STATES SHE GETS SEIZURES FROM MORPHINE Discharge Summary Date of Admission Oct 01, 2020 at 19:47 Date of Discharge Discharge Date: Oct 04, 2020 Admission Diagnosis Assessment: Bilateral PE Hypoxia Fibromyalgia N/V Plan: Cardiology ECHO Discharge Diagnosis Assessment: Bilateral PE Hypoxia Fibromyalgia Chronic pain Anxiety DM Anemia B12 def Plan: Vit B12 Move to floor Left shoulder xray (1) Pulmonary emboli Status: Acute (2) Cervical radicular pain Status: Acute (3) CAD (coronary artery disease) Status: Chronic (4) Diabetes Status: Chronic Qualifiers: (5) GERD (gastroesophageal reflux disease) Status: Chronic (6) HLD (hyperlipidemia) Status: Chronic (7) HTN (hypertension) Status: Chronic (8) ROBINA (obstructive sleep apnea) Status: Chronic (9) Anxiety associated with depression Status: Chronic (10) Coronary arteriosclerosis in patient with history of previous myocardial infarction Status: Chronic JEREMY CR DO Oct 04, 2020 13:00
== END 2020-10-04 14:58 | disposition home or self-care (01) | DRG 176 ==
LOC: EDUNIT# 15:36 → ER FS 15:39 → ICU 19:47 → 4TH 10-03 13:13
PROVIDERS: ADMIT Family Medicine; ATTEND Family Medicine
DX: I26.99 Other pulmonary embolism without acute cor pulmonale (principal); N39.0 Urinary tract infection, site not specified; M54.12 Radiculopathy, cervical region; F17.210 Nicotine dependence, cigarettes, uncomplicated; J44.9 Chronic obstructive pulmonary disease, unspecified; I25.10 Atherosclerotic heart disease of native coronary artery without angina pectoris; E78.00 Pure hypercholesterolemia, unspecified; I10 Essential (primary) hypertension; E11.40 Type 2 diabetes mellitus with diabetic neuropathy, unspecified; K21.9 Gastro-esophageal reflux disease without esophagitis; M79.7 Fibromyalgia; F41.9 Anxiety disorder, unspecified; F32.9 Major depressive disorder, single episode, unspecified; M10.9 Gout, unspecified; G47.33 Obstructive sleep apnea (adult) (pediatric); R09.02 Hypoxemia; G89.29 Other chronic pain; E11.65 Type 2 diabetes mellitus with hyperglycemia; D51.9 Vitamin B12 deficiency anemia, unspecified; E66.01 Morbid (severe) obesity due to excess calories; M54.2 Cervicalgia; M25.519 Pain in unspecified shoulder; R00.2 Palpitations; M54.9 Dorsalgia, unspecified; Z79.4 Long term (current) use of insulin; Z79.82 Long term (current) use of aspirin; Z90.49 Acquired absence of other specified parts of digestive tract; Z95.5 Presence of coronary angioplasty implant and graft; I25.2 Old myocardial infarction; Z88.0 Allergy status to penicillin; Z88.1 Allergy status to other antibiotic agents; Z88.2 Allergy status to sulfonamides; Z88.5 Allergy status to narcotic agent; Z68.38 Body mass index [BMI] 38.0-38.9, adult
CPT/HCPCS: 36415; 70498; 71045; 71275; 73030; 80053; 80061; 80306; 81000; 82607; 82728; 82962; 83036; 83540; 83550; 83605; 83735; 84443; 84484; 85007; 85025; 85027; 85045; 85379; 87040; 87088; 93005; 93306; 93970

== ENCOUNTER 2020-10-25 13:25 | Emergency (ER) | payer BC ==
[~2020-10-25] VITALS: Ht 162.7 cm; Wt 100.5 kg
[~2020-10-25 13:25] MED LIST: ALLO100T PO; ALPR0.5T7 PO; AMLO-250 PO; APIX5TAB PO; ASPI-1238 PO; ATOR40TA70 PO; DIPH25CA79 PO; FLUT9.9S NS; GABA300C PO; GABA300S2 PO; GEMF600T88 PO; HYDR-3817 PO; INSU100I22 SQ; ISOS120T9 PO; LISI10TA25 PO; MELA10TA2 PO; MELO15TA39 PO; METF-399 PO; METF100P2 MC; MONT10TA32 PO; MTP100TCR PO; NICO1PAT38 TD; NITR0.4T39 SL; PANT40TA52 PO; RANO500T6 PO; RT-ALBUINH IH; SITA100T12 PO; SUCR1TAB PO; VENL75TA2 PO
--- NOTE | 2020-10-25 14:06 | ED General ---
General Chief Complaint: Trauma-Non Activation Stated Complaint: FALL | BRUISING ON FACE AND LEFT KNEE Nursing Triage Note: Patient reports she tripped and fell while outside on October 19, states she landed on her left knee and the left side of her face. She reports she has cancer and saw her oncologist after her fall, states her oncologist told her to come to the ED if her bruising became any worse because she is on blood thinners. She states she was recently diagnosed with multiple pulmonary emboli recently. Nursing Sepsis Screen: No Definite Risk History of Present Illness Date Seen by Provider: October 25, 2020 Time Seen by Provider: 14:02 Initial Comments Patient presenting to the emergency department for evaluation of left facial pain and left knee pain in the setting of a trip and a fall 6 days ago. She says that she was walking around her garden and fell striking the left side of her face and she does not lose consciousness but she feels that the bruising and pain may be getting worse and her oncologist encouraged her to come to the emergency department as she is on Eliquis for prior pulmonary emboli. She also has pain in her left knee as it is swollen and bruised but she says that she can bear weight on it without difficulty but whenever she pushes on it it causes her significant pain. She denies any weakness numbness tingling vision changes or other complaints. She denies neck pain chest pain back pain or abdominal pain. She is in no obvious distress with normal vital signs. 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 Home Medications Albuterol Sulfate 1 Puff Puff, 2 PUFF IH Q4H PRN for SHORTNESS OF BREATH, (Reported) Allopurinol 100 Mg Tablet, 100 MG PO 1200,2200, (Reported) Alprazolam 0.5 Mg Tablet, 0.5 MG PO Q6HR PRN for ANXIETY Prescribed by: JEREMY RODRIGUEZ on 10/04/20 1256 Amlodipine Besylate 5 Mg Tablet, 5 MG PO 2000, (Reported) Apixaban 5 Mg Tablet, 10 MG PO BID Prescribed by: JEREMY RODRIGUEZ on 10/04/20 125 Aspirin 81 Mg Tablet.dr, 162 MG PO DAILY, (Reported) TAKES 2 (81NG) TABS Atorvastatin Calcium 40 Mg Tablet, 40 MG PO HS, (Reported) Diphenhydramine HCl 25 Mg Capsule, 25 MG PO HS, (Reported) Fluticasone Propionate 9.9 Ml [place].susp, 1-2 SPRAY NS DAILY PRN for CONGESTION, (Reported) Gabapentin 300 Mg Capsule, 300 MG PO TID, (Reported) Gemfibrozil 600 Mg Tablet, 600 MG PO BID, (Reported) Hydrocodone/Acetaminophen 1 Each Tablet, 1 EACH PO Q6H PRN for PAIN-MODERATE (5- 7) Prescribed by: JEREMY RODRIGUEZ on 10/04/20 125 Insulin NPL/Insulin Lispro 100 Unit/1 Ml Insuln.pen, 90 UNIT SQ BID, (Reported) Insulin NPL/Insulin Lispro 100 Unit/1 Ml Insuln.pen, 60 UNIT SQ 1200, (Reported) Isosorbide Mononitrate 120 Mg Tab.er.24h, 120 MG PO 2000, (Reported) Lisinopril 10 Mg Tablet, 10 MG PO 1200, (Reported) Melatonin 10 Mg Tablet, 10 MG PO HS, (Reported) Meloxicam 15 Mg Tablet, 15 MG PO HS, (Reported) Metformin HCl 1,000 Mg Tablet, 1,000 MG PO 1200,2200, (Reported) Metoprolol Succinate 100 Mg Tab.er.24h, 100 MG PO 1800, (Reported) Montelukast Sodium 10 Mg Tablet, 10 MG PO HS, (Reported) Nicotine 1 Each Patch.td24, 14 MG TD DAILY@0900 Prescribed by: JEREMY RODRIGUEZ on 10/04/20 125 Nitroglycerin 0.4 Mg Tab.subl, 0.4 MG SL UD PRN for CHEST PAIN, (Reported) Pantoprazole Sodium 40 Mg Tablet.dr, 40 MG PO HS, (Reported) Ranolazine 500 Mg Tab.er.12h, 500 MG PO 1200,2200, (Reported) Sitagliptin Phosphate 100 Mg Tablet, 100 MG PO DAILY, (Reported) Venlafaxine HCl 75 Mg Tab.er.24, 75 MG PO 1800, (Reported) Patient Home Medication List Home Medication List Reviewed: Yes Review of Systems Review of Systems Constitutional: no symptoms reported EENTM: no symptoms reported Respiratory: no symptoms reported Cardiovascular: no symptoms reported Gastrointestinal: no symptoms reported Musculoskeletal: joint pain, joint swelling Skin: other (bruising but no abrasions or open wounds) Psychiatric/Neurological: No Symptoms Reported All Other Systems Reviewed Negative Unless Noted: Yes Past Aenlxwa-Akaxve-Ocirtf Hx Patient Social History Type Used: Cigarettes 2nd Hand Smoke Exposure: No Recent Infectious Disease Expo: No Recent Hopitalizations: No Immunizations Up To Date Date of Influenza Vaccine: May 03, 2020 Seasonal Allergies Seasonal Allergies: Yes Past Medical History Surgeries: Yes Appendectomy, Coronary Stent, Gallbladder, 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, Orthopedic Respiratory: Yes COPD Cardiac: Yes ("Hole in heart") Coronary Artery Disease, Heart Attack, High Cholesterol, Hypertension Neuropathy SPLITTER HEAD History: 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 Genitourinary: No Gastrointestinal: Yes Gastroesophageal Reflux Musculoskeletal: Yes Fibromyalgia, Gout Endocrine: Yes Diabetes, Insulin dep HEENT: No Cancer: No Psychosocial: Yes Anxiety, Depression Integumentary: No Physical Exam Vital Signs Vital Signs - First Documented 10/25/20 13:35 Temp 36.1 Pulse 96 Resp 20 B/P (MAP) 148/56 (86) Pulse Ox 98 O2 Delivery Room Air Capillary Refill : Less Than 3 Seconds Height, Weight, BMI Height: 5'3" Weight: 201lbs. oz. 91.028135ma; 37.00 BMI Method: General Appearance: No Apparent Distress, WD/WN HEENT: PERRL/EOMI Neck: Supple Respiratory: Lungs Clear, No Respiratory Distress Cardiovascular: Regular Rate, Rhythm Gastrointestinal: Non Tender, Soft Back: Normal Inspection, No Vertebral Tenderness Extremity: Normal Capillary Refill, Other (Patient able to fully extend left knee and raise it up above the bed with no difficulty. There is a small effusion and bruising noted but no obvious deformity.) Neurologic/Psychiatric: Alert, Oriented x3 Skin: Warm/Dry, Other (Bruising to left side of face) Progress/Results/Core Measures Suspected Sepsis Recent Fever Within 48 Hours: No Infection Criteria Present: None New/Unexplained Altered Menta: No Sepsis Screen: No Definite Risk SIRS Temperature: Pulse: 96 Respiratory Rate: 20 Blood Pressure 148 /56 Mean: 86 Results/Orders My Orders Orders - PHYLLIS FRANCIS DO Ct Head Wo (10/25/20 13:43) Ct Maxillofacial Wo (10/25/20 13:43) Knee 3 View Left (10/25/20 13:43) Cbc With Automated Diff (10/25/20 14:54) Comprehensive Metabolic Panel (10/25/20 14:54) Partial Thromboplastin Time (10/25/20 14:54) Protime With Inr (10/25/20 14:54) Iv/Invasive Line Insertion .IV start (10/25/20 14:54) Human Prothrombin Complx(Pcc) (Kcent[facility] K (10/25/20 15:00) Vital Signs/I&O 10/25/20 13:35 Temp 36.1 Pulse 96 Resp 20 B/P (MAP) 148/56 (86) Pulse Ox 98 O2 Delivery Room Air Capillary Refill : Less Than 3 Seconds Blood Pressure Mean: 86 Progress Note : Progress Note I will check imaging and reassess I spoke to Dr. Scruggs, trauma surgery at [facility] and he recommended speaking to a higher level of care given they don't have neurosurgery. I then spoke to [facility] at patient's request and they said patient should be started on prothrombin complex concentrate which was done here and the patient should be transferred there for further evaluation and treatment. Patient transferred in stable condition. Critical Care Note Critical Care Total Time (minutes) 37 Departure Impression Primary Impression: Cerebral parenchymal hemorrhage Qualified Codes: S06.350A - Traumatic hemorrhage of left cerebrum without loss of consciousness, initial encounter Additional Impressions: Contusion of face Contusion of left knee Disposition: [facility]-TRM HOSP Condition: Unchanged Transfer Transfer Reason: Exceeds level of care Transfer Facility: [facility] Method of Transfer: EMS Departure-Patient Inst. Referrals: JEREMY RODRIGUEZ DO (PCP/Family) Primary Care Physician PHYLLIS FRANCIS DO October 25, 2020 14:06
--- NOTE | 2020-10-25 14:20 | Diagnostic Imaging Report ---
PROCEDURE: CT maxillofacial without contrast. TECHNIQUE: Multiple contiguous axial images were obtained through the facial bones without the use of intravenous contrast. Auto Exposure Controls were utilized during the CT exam to meet ALARA standards for radiation dose reduction. INDICATION: Fall one week ago with bruising to left side of the face. Patient is on blood thinners. The mandible is intact. The zygomatic arches are intact. Maxillary sinus lynn, nasal bones and orbital lynn appear to be intact. The visualized paranasal sinuses are clear. Mastoids are well aerated. No facial bone fracture is identified. IMPRESSION: No facial bone fracture is detected. Dictated by: Dictated on workstation # [id number]
--- NOTE | 2020-10-25 14:21 | Diagnostic Imaging Report ---
EXAMINATION: CT head without contrast. TECHNIQUE: Multiple contiguous axial images were obtained through the brain without the use of intravenous contrast. All CT scans use one or more of the following dose optimizing techniques: automated exposure control, MA and/or KvP adjustment based on patient size and exam type or iterative reconstruction. HISTORY: Fall. Scalp contusion. On blood thinners. COMPARISON: None available. FINDINGS: Small focus of likely parenchymal contusion is seen in the anterior-inferior aspect of the left frontal lobe. No associated midline shift. No acute ischemia. No midline shift or mass effect. The ventricles and cortical sulci are age-appropriate. The basilar cisterns are patent and unremarkable. The orbits are normal. Paranasal sinuses are normal. Mastoid air cells are clear. No soft tissue abnormality is seen. No osseus lesions or fractures are seen. IMPRESSION: 1. Likely small focus of parenchymal contusion in the anterior-inferior left frontal lobe. Alternatively, this may represent artifact secondary to beam hardening from the anterior cranial fossa. Recommend follow-up as indicated. 2. No large acute territorial ischemia. No calvarial fractures. Dictated by: Dictated on workstation # [id number]
--- NOTE | 2020-10-25 14:21 | Diagnostic Imaging Report ---
Indication: Fall with left knee pain. Time of Exam: 2:09 PM Multiple views of the left knee were obtained. Alignment is normal. Joint spaces are well maintained. Articular surfaces are smooth. No fracture, dislocation or effusion is identified. IMPRESSION: No acute bony abnormality is detected. Dictated by: Dictated on workstation # [id number]
[2020-10-25] MEDS ORDERED: HUMAN PROTHROMBIN COMPLX(PCC) 500 UNIT (KCENTRA) IV ONE (15:00)
[2020-10-25 15:43] LABS: BASOPHILS # (AUTO) 0.1 10^3/uL (0.0-0.1); BASOPHILS % (AUTO) 1 % (0-10); EOSINOPHILS # (AUTO) 0.3 10^3/uL (0.0-0.3); EOSINOPHILS % (AUTO) 2 % (0-10); HEMATOCRIT 28 % (35-52); HEMOGLOBIN 8.8 G/DL (11.5-16.0); LYMPHOCYTES # (AUTO) 2.9 X 10^3 (1.0-4.0); LYMPHOCYTES % (AUTO) 22 % (12-44); MEAN CORPUSCULAR HEMOGLOBIN 31 PG (25-34); MEAN CORPUSCULAR HGB CONC 32 G/DL (32-36); MEAN CORPUSCULAR VOLUME 96 FL (80-99); MEAN PLATELET VOLUME 11.4 FL (7.4-10.4); MONOCYTES # (AUTO) 0.9 X 10^3 (0.0-1.0); MONOCYTES % (AUTO) 7 % (0-12); NEUTROPHILS # (AUTO) 8.9 X 10^3 (1.8-7.8); NEUTROPHILS % (AUTO) 68 % (42-75); PLATELET COUNT 376 10^3/uL (130-400); WHITE BLOOD COUNT 13.1 10^3/uL (4.3-11.0)
[2020-10-25 15:51] LABS: INR 1.4 (0.8-1.4); PROTHROMBIN TIME PATIENT 17.6 SEC (12.2-14.7)
[2020-10-25 15:56] LABS: ALANINE AMINOTRANSFERASE 17 U/L (0-55); ALBUMIN 3.8 GM/DL (3.2-4.5); ALKALINE PHOSPHATASE 113 U/L (40-136); BILIRUBIN,TOTAL 0.2 MG/DL (0.1-1.0); BUN/CREATININE RATIO 21; CALCIUM 9.2 MG/DL (8.5-10.1); CARBON DIOXIDE 24 MMOL/L (21-32); CHLORIDE 101 MMOL/L (98-107); CREATININE SERUM 0.92 MG/DL (0.60-1.30); GFR ESTIMATED > 60; GLUCOSE 338 MG/DL (70-105); POTASSIUM 5.1 MMOL/L (3.6-5.0); SODIUM 134 MMOL/L (135-145); TOTAL PROTEIN 6.8 GM/DL (6.4-8.2)
[2020-10-25 17:05] VITALS: BP 121/72
== END 2020-10-25 17:05 | disposition short-term general hospital (02) ==
LOC: EDUNIT# 13:25 → ER FS 13:27
DX: S06.350A Traumatic hemorrhage of left cerebrum without loss of consciousness, initial encounter (principal); S80.02XA Contusion of left knee, initial encounter; J44.9 Chronic obstructive pulmonary disease, unspecified; I25.2 Old myocardial infarction; I10 Essential (primary) hypertension; E78.00 Pure hypercholesterolemia, unspecified; I25.10 Atherosclerotic heart disease of native coronary artery without angina pectoris; K21.9 Gastro-esophageal reflux disease without esophagitis; E11.9 Type 2 diabetes mellitus without complications; M10.9 Gout, unspecified; F41.9 Anxiety disorder, unspecified; F32.9 Major depressive disorder, single episode, unspecified; Z88.0 Allergy status to penicillin; Z88.1 Allergy status to other antibiotic agents; Z88.2 Allergy status to sulfonamides; Z88.5 Allergy status to narcotic agent; Z79.01 Long term (current) use of anticoagulants; Z79.899 Other long term (current) drug therapy; Z79.82 Long term (current) use of aspirin; Z79.4 Long term (current) use of insulin; W22.8XXA Striking against or struck by other objects, initial encounter
CPT/HCPCS: 36415; 70450; 70486; 73562; 80053; 85025; 85610; 85730

== ENCOUNTER → 2020-11-24 | Outpatient (CLI) | payer BC, MEDICARE ==
[2020-11-24 09:34] LABS: BASOPHILS # (AUTO) 0.1 10^3/uL (0.0-0.1); BASOPHILS % (AUTO) 1 % (0-10); EOSINOPHILS # (AUTO) 0.3 10^3/uL (0.0-0.3); EOSINOPHILS % (AUTO) 3 % (0-10); HEMATOCRIT 34 % (35-52); HEMOGLOBIN 10.5 g/dL (11.5-16.0); LYMPHOCYTES # (AUTO) 2.5 10^3/uL (1.0-4.0); LYMPHOCYTES % (AUTO) 26 % (12-44); MEAN CORPUSCULAR HEMOGLOBIN 30 pg (25-34); MEAN CORPUSCULAR HGB CONC 31 g/dL (32-36); MEAN CORPUSCULAR VOLUME 95 fL (80-99); MEAN PLATELET VOLUME 11.1 fL (9.0-12.2); MONOCYTES # (AUTO) 0.9 10^3/uL (0.0-1.0); MONOCYTES % (AUTO) 9 % (0-12); NEUTROPHILS # (AUTO) 5.6 10^3/uL (1.8-7.8); NEUTROPHILS % (AUTO) 60 % (42-75); PLATELET COUNT 356 10^3/uL (130-400); WHITE BLOOD COUNT 9.5 10^3/uL (4.3-11.0)
[2020-11-24 09:58] LABS: ALANINE AMINOTRANSFERASE 17 U/L (0-55); ALBUMIN 3.9 GM/DL (3.2-4.5); ALKALINE PHOSPHATASE 89 U/L (40-136); BILIRUBIN,TOTAL 0.4 MG/DL (0.1-1.0); BUN/CREATININE RATIO 14; CALCIUM 9.9 MG/DL (8.5-10.1); CARBON DIOXIDE 21 MMOL/L (21-32); CHLORIDE 104 MMOL/L (98-107); CHOLESTEROL 158 MG/DL (< 200); CREATININE SERUM 1.11 MG/DL (0.60-1.30); GFR ESTIMATED 50; GLUCOSE 294 MG/DL (70-105); HDL CHOLESTEROL 29 MG/DL (40-60); POTASSIUM 5.7 MMOL/L (3.6-5.0); SODIUM 135 MMOL/L (135-145); TOTAL PROTEIN 7.6 GM/DL (6.4-8.2); TRIGLYCERIDES 408 MG/DL (<150)
== END ==
LOC: LAB 09:00
PROVIDERS: ATTEND Internal Medicine
DX: Z13.6 Encounter for screening for cardiovascular disorders (principal); I10 Essential (primary) hypertension; E03.9 Hypothyroidism, unspecified; R73.9 Hyperglycemia, unspecified
CPT/HCPCS: 36415; 80053; 80061; 83036; 84439; 84443; 85025

== ENCOUNTER 2020-12-07 12:13 | Outpatient (RCR) | payer BC, MEDICARE ==
[~2020-12-07 12:13] MED LIST changes: +CYANOCOBALAMIN INJ 1000 MCG/ML (CANCER CENTER) ONE
[2020-12-07] MEDS ORDERED: CYANOCOBALAMIN INJ 1000 MCG/ML (CANCER CENTER) ONE (12:38)
== END 2020-12-25 11:12 | disposition home or self-care (01) ==
LOC: ONC 12:13
PROVIDERS: ATTEND Internal Medicine Hematology & Oncology
DX: D50.9 Iron deficiency anemia, unspecified (principal); I26.99 Other pulmonary embolism without acute cor pulmonale; E53.8 Deficiency of other specified B group vitamins; D72.829 Elevated white blood cell count, unspecified; I10 Essential (primary) hypertension; E11.9 Type 2 diabetes mellitus without complications
CPT/HCPCS: G0463 ×2; 96372; 99214

== ENCOUNTER → 2020-12-08 | Outpatient (CLI) | payer MEDICARE ==
[~2020-12-08] MED LIST changes: +CATHETER FLUSH 10 ML SYR IV PRN; -CYANOCOBALAMIN INJ 1000 MCG/ML (CANCER CENTER) ONE; +REGADENOSON 0.4 MG/5 ML SYR (LEXISCAN) IV ONE
[2020-12-08 13:17] VITALS: BP 153/95
--- NOTE | 2020-12-08 23:04 | STRESS TEST ---
DATE OF SERVICE: 12/08/2020 RESTING AND POST REGADENOSON TECHNETIUM-99M TETROFOSMIN SPECT CT IMAGING ORDERING PHYSICIAN: Dr. Love. PRIMARY PHYSICIAN: Dr. Cr. CLINICAL DIAGNOSIS: Shortness of breath. Baseline images were carried out after injection of 10.98 mCi of technetium-99m Tetrofosmin. This was followed by 0.4 mg Regadenoson and 30.5 mCi of technetium-99 Tetrofosmin for stress imaging. The electrocardiogram showed sinus arrhythmia and ectopic atrial rhythm were seen. The electrocardiogram did not change significantly with regadenoson infusion. Review of images at rest and following stress does not indicate any distinct perfusion defect consistent with significant myocardial ischemia or infarction. Gated images show normal global left ventricular systolic function with normal regional wall motion. Left ventricular ejection fraction is calculated to be 79%. CONCLUSIONS: 1. No evidence of any significant myocardial ischemia or infarction on this study. 2. Normal regional wall motion. 3. Normal global left ventricular systolic function with a calculated ejection fraction of 79%. 4. Sinus rhythm with sinus arrhythmia and intermittent, ectopic atrial rhythm during the study. Job ID: [id number] DocumentID: [id number] Dictated Date: 12/08/2020 20:29:42 Dredge Pipeman Date: 12/08/2020 23:03:46 Dictated By: MALA LOVE MD, MA, FACP, FACC,
== END ==
LOC: CARD 09:24
PROVIDERS: ATTEND Internal Medicine Cardiovascular Disease
DX: Z13.83 Encounter for screening for respiratory disorder NEC (principal); R06.02 Shortness of breath; R06.09 Other forms of dyspnea
CPT/HCPCS: 78452; 93017; A9502

== ENCOUNTER → 2020-12-08 | Outpatient (CLI) | payer MEDICARE ==
[~2020-12-08] MED LIST changes: -CATHETER FLUSH 10 ML SYR IV PRN; +RT-ALBUTEROL SULF 2.5 MG/3 ML PRE-MIX VIAL INH ONE
--- NOTE | 2020-12-08 10:17 | Diagnostic Imaging Report ---
INDICATION: Right ankle pain 3 views of the right ankle shows no fracture, dislocation or other abnormality. IMPRESSION: Normal right ankle. Dictated by: Dictated on workstation # [id number]
--- NOTE | 2020-12-08 10:19 | Diagnostic Imaging Report ---
INDICATION: Twisting injury. Right ankle pain 3 views of the right ankle shows no fracture, dislocation or other acute abnormality. The ankle joint is not widened. IMPRESSION: No acute abnormality is seen. Dictated by: Dictated on workstation # [id number]
== END ==
LOC: RAD 08:52
PROVIDERS: ATTEND Internal Medicine
DX: S99.911A Unspecified injury of right ankle, initial encounter (principal); X58.XXXA Exposure to other specified factors, initial encounter
CPT/HCPCS: 73610; 73630; 94060; 94726; 94729

== ENCOUNTER → 2021-02-07 | Outpatient (CLI) | payer MEDICARE ==
[~2021-02-07] MED LIST changes: -REGADENOSON 0.4 MG/5 ML SYR (LEXISCAN) IV ONE; -RT-ALBUTEROL SULF 2.5 MG/3 ML PRE-MIX VIAL INH ONE
== END ==
LOC: LAB FS 13:25
PROVIDERS: ATTEND Internal Medicine
DX: R19.7 Diarrhea, unspecified (principal)
CPT/HCPCS: 82274; 87015; 87045; 87046; 87324; 87449; 87899; 89055

== ENCOUNTER → 2021-02-08 | Outpatient (CLI) | payer MEDICARE | LOC: LAB FS 16:06 | PROVIDERS: ATTEND Internal Medicine | DX: R19.7 Diarrhea, unspecified (principal) | CPT/HCPCS: 87015; 87045; 87046; 87899; 89055 ==

== ENCOUNTER → 2021-02-21 | Outpatient (CLI) | payer MEDICARE | LOC: LAB FS 11:27 | PROVIDERS: ATTEND Internal Medicine | DX: R19.7 Diarrhea, unspecified (principal) | CPT/HCPCS: 89055 ==

== ENCOUNTER → 2021-02-24 | Outpatient (CLI) | payer MEDICARE | LOC: LAB FS 15:44 | PROVIDERS: ATTEND Internal Medicine | DX: E11.65 Type 2 diabetes mellitus with hyperglycemia (principal) | CPT/HCPCS: 36415; 82043; 83036 ==

== ENCOUNTER 2021-03-22 14:14 | Outpatient (RCR) | payer MEDICARE ==
[2021-01-27 10:14] LABS: BASOPHILS # (AUTO) 0.1 10^3/uL (0.0-0.1); BASOPHILS % (AUTO) 1 % (0-10); EOSINOPHILS # (AUTO) 0.3 10^3/uL (0.0-0.3); EOSINOPHILS % (AUTO) 3 % (0-10); HEMATOCRIT 36 % (35-52); HEMOGLOBIN 11.1 g/dL (11.5-16.0); LYMPHOCYTES # (AUTO) 2.6 10^3/uL (1.0-4.0); LYMPHOCYTES % (AUTO) 20 % (12-44); MEAN CORPUSCULAR HEMOGLOBIN 28 pg (25-34); MEAN CORPUSCULAR HGB CONC 31 g/dL (32-36); MEAN CORPUSCULAR VOLUME 90 fL (80-99); MEAN PLATELET VOLUME 11.8 fL (9.0-12.2); MONOCYTES # (AUTO) 1.1 10^3/uL (0.0-1.0); MONOCYTES % (AUTO) 9 % (0-12); NEUTROPHILS # (AUTO) 8.4 10^3/uL (1.8-7.8); NEUTROPHILS % (AUTO) 67 % (42-75); PLATELET COUNT 431 10^3/uL (130-400); WHITE BLOOD COUNT 12.5 10^3/uL (4.3-11.0)
[2021-01-27 10:37] LABS: ALBUMIN 4.1 GM/DL (3.2-4.5); BILIRUBIN,TOTAL 0.3 MG/DL (0.1-1.0); CALCIUM 10.3 MG/DL (8.5-10.1); CREATININE SERUM 1.72 MG/DL (0.60-1.30); POTASSIUM 5.4 MMOL/L (3.6-5.0)
[~2021-03-22 14:14] MED LIST changes: +CYANOCOBALAMIN INJ 1000 MCG/ML (CANCER CENTER) ONE
[2021-03-22 14:30] LABS: BASOPHILS # (AUTO) 0.1 10^3/uL (0.0-0.1); BASOPHILS % (AUTO) 1 % (0-10); EOSINOPHILS # (AUTO) 0.3 10^3/uL (0.0-0.3); EOSINOPHILS % (AUTO) 3 % (0-10); HEMATOCRIT 35 % (35-52); HEMOGLOBIN 11.2 g/dL (11.5-16.0); LYMPHOCYTES # (AUTO) 2.5 10^3/uL (1.0-4.0); LYMPHOCYTES % (AUTO) 22 % (12-44); MEAN CORPUSCULAR HEMOGLOBIN 29 pg (25-34); MEAN CORPUSCULAR HGB CONC 32 g/dL (32-36); MEAN CORPUSCULAR VOLUME 92 fL (80-99); MEAN PLATELET VOLUME 11.2 fL (9.0-12.2); MONOCYTES # (AUTO) 1.1 10^3/uL (0.0-1.0); MONOCYTES % (AUTO) 10 % (0-12); NEUTROPHILS # (AUTO) 7.2 10^3/uL (1.8-7.8); NEUTROPHILS % (AUTO) 64 % (42-75); PLATELET COUNT 373 10^3/uL (130-400); WHITE BLOOD COUNT 11.3 10^3/uL (4.3-11.0)
[2021-03-22] MEDS ORDERED: CYANOCOBALAMIN INJ 1000 MCG/ML (CANCER CENTER) ONE (14:49)
[2021-03-22 14:54] LABS: ALBUMIN 3.8 GM/DL (3.2-4.5); BILIRUBIN,TOTAL 0.4 MG/DL (0.1-1.0); CALCIUM 10.2 MG/DL (8.5-10.1); CREATININE SERUM 1.32 MG/DL (0.60-1.30); POTASSIUM 5.2 MMOL/L (3.6-5.0); TOTAL PROTEIN 7.8 GM/DL (6.4-8.2)
== END 2021-03-28 | disposition home or self-care (01) ==
LOC: ONC 14:14
PROVIDERS: ATTEND Internal Medicine Hematology & Oncology
DX: D50.9 Iron deficiency anemia, unspecified (principal); E53.8 Deficiency of other specified B group vitamins; D72.829 Elevated white blood cell count, unspecified; I26.99 Other pulmonary embolism without acute cor pulmonale; I10 Essential (primary) hypertension; E11.9 Type 2 diabetes mellitus without complications; E66.9 Obesity, unspecified; I25.10 Atherosclerotic heart disease of native coronary artery without angina pectoris; J44.9 Chronic obstructive pulmonary disease, unspecified; I82.409 Acute embolism and thrombosis of unspecified deep veins of unspecified lower extremity; M10.9 Gout, unspecified; E55.9 Vitamin D deficiency, unspecified; Z79.4 Long term (current) use of insulin; Z98.61 Coronary angioplasty status
CPT/HCPCS: 80053; 82607; 82728; 82746; 83540; 83550; 85025; 96372; 99213

== ENCOUNTER 2021-03-26 05:48 | Outpatient (RCR) | payer MEDICARE ==
[~2021-03-26] VITALS: Ht 162.6 cm; Wt 101.3 kg
== END 2021-03-26 08:43 | disposition home or self-care (01) ==
LOC: PREOP 05:48
PROVIDERS: ATTEND Surgery
DX: Z01.818 Encounter for other preprocedural examination (principal)

== ENCOUNTER → 2021-03-26 | Outpatient (CLI) | payer MEDICARE ==
[~2021-03-26] MED LIST changes: -CYANOCOBALAMIN INJ 1000 MCG/ML (CANCER CENTER) ONE
== END ==
LOC: LAB FS 09:35
PROVIDERS: ATTEND Surgery
DX: Z01.812 Encounter for preprocedural laboratory examination (principal); K92.1 Melena; R10.9 Unspecified abdominal pain; Z20.822 Contact with and (suspected) exposure to COVID-19
CPT/HCPCS: 87635

== ENCOUNTER 2021-03-30 10:29 | Day surgery (SDC) | payer MEDICARE ==
[~2021-03-30] VITALS: Ht 163 cm; Wt 101.0 kg
[2021-03-30] MEDS ORDERED: LACTATED RINGERS 1,000 ML IV ONE (10:34)
[2021-03-30] MEDS ORDERED: LACTATED RINGERS 1,000 ML IV STA (10:43)
[2021-03-30] MEDS ORDERED: HURRICAINE EXT TUBE (BENZOCAINE) XX PRN (10:45)
[2021-03-30 11:00] VITALS: BP 108/62
--- NOTE | 2021-03-30 12:33 | Progress Note-Pre Operative ---
Pre-Operative Progress Note H&P Reviewed The H&P was reviewed, patient examined and no changes noted. Date Seen by Provider: Mar 30, 2021 Time Seen by Provider: 12:33 Date H&P Reviewed: Mar 30, 2021 Time H&P Reviewed: 12:33 Pre-Operative Diagnosis: blood in stool, gerd, diffuse abd pain HARLAN DEE DO Mar 30, 2021 12:33
[2021-03-30] MEDS ORDERED: PROPOFOL INJECTION 50 ML IV ONE (13:09)
[2021-03-30] MEDS ORDERED: proPOfol 200 MG/20 ML (DIPRIVAN) VIAL IV ONE (13:52)
--- NOTE | 2021-03-30 14:02 | Progress Note-Post Operative ---
Post-Operative Progess Note Surgeon (s)/Supervisor Coal Handling (s) Surgeon HARLAN DEE DO Supervisor Coal Handling: na Pre-Operative Diagnosis blood in stool, gerd, diffuse abd pain Post-Operative Diagnosis normal egd, diverticulosis, colon polyps Procedure & Operative Findings Date of Procedure 03/30/21 Procedure Performed/Findings egd c biopsies, colonoscopy c hot bx polypectomy x 6 Anesthesia Type per mid level java developer Estimated Blood Loss Estimated blood loss (mL): none Specimens/Packing Specimens Removed antrum, ge, ascending x 2 transverse x 2 descending x 2 HARLAN DEE DO Mar 30, 2021 14:01
--- NOTE | 2021-03-30 14:03 | Discharge Inst-Simple/Standard ---
Discharge Inst-Standard Patient Instructions/Follow Up Plan of Care/Instructions/FU: 2 weeks [place] Activity as Tolerated: Yes Discharge Diet: Regular Diet (high fiber) HARLAN DEE DO Mar 30, 2021 14:03
[2021-03-30 14:05] VITALS: BP 99/52
[2021-03-30 14:10] VITALS: BP 103/51
[2021-03-30 14:15] VITALS: BP 108/51
[2021-03-30 14:30] VITALS: BP 106/50
[2021-03-30 14:40] VITALS: BP 106/50
--- NOTE | 2021-03-30 15:32 | Anesthesia-General Post-Op ---
MAC Patient Condition Mental Status/LOC: Same as Preop Cardiovascular: Satisfactory Nausea/Vomiting: Absent Respiratory: Satisfactory Pain: Controlled Complications: Absent Post Op Complications Complications None Follow Up Care/Instructions Patient Instructions None needed. Anesthesiology Discharge Order Discharge Order Patient is doing well, no complaints, stable vital signs, no apparent adverse anesthesia problems. No complications reported per nursing. RAJINDER MCDONALD CRNA Mar 30, 2021 15:32
--- NOTE | 2021-03-30 22:21 | OPERATIVE REPORT ---
DATE OF SERVICE: 03/30/2021 PREOPERATIVE DIAGNOSES: Blood in stool, gastroesophageal reflux disease, diffuse abdominal pain. POSTOPERATIVE DIAGNOSIS: Normal EGD, diverticulosis, colon polyps. PROCEDURE: EGD with biopsies, colonoscopy with hot biopsy polypectomy x6. SURGEON: Harlan Lindsay DO ANESTHESIA: Per ARBORIST CLIMBER. ESTIMATED BLOOD LOSS: None. COMPLICATIONS: None. INDICATIONS: The patient is a 60-year-old female who has had some blood in stools. She has been having some reflux and having diffuse abdominal pain. She was recommended to have EGD and colonoscopy for further evaluation. She understands risks and benefits and wishes to proceed. Consent was signed in the chart. DESCRIPTION OF PROCEDURE: The patient was taken to the endoscopy suite, placed in left lateral recumbent position. Timeout was performed. Scope was inserted in mouth, down the esophagus, stomach and into the duodenum without difficulty. There were no polyps, masses or ulcerations within the duodenum. Scope was slowly retracted back into the stomach where it was further insufflated. Biopsy of the antrum was obtained. No polyps, masses or ulcerations. Scope was retroflexed noting no other pathology. Scope was returned to its normal position, slowly withdrawn to distal esophagus. Biopsy of the GE junction was obtained. There were no polyps, masses or ulcerations. Scope was slowly retracted back until completely removed, noting no other pathology. Digital rectal exam was performed. There were no palpable polyps, masses or ulcerations. Some minimal hemorrhoidal disease. Scope was inserted in the rectum and advanced all the way to the cecum with minimal difficulty. The prep had some particulate stool present with irrigation and suction got adequate visualization. Scope was then slowly retracted back. There were no polyps, masses or ulcerations within the cecum. In the ascending colon, there were 2 polyps, which hot biopsy polypectomies were performed. Scope was then continuously retracted back into the transverse colon, which another 2 polyps were present, which hot biopsy polypectomies were performed. In the descending colon, there were two other polyps, which hot biopsy polypectomies were performed. Scope was then continued to be withdrawn. In the descending and sigmoid colon, there was some diverticulosis present. Scope was continued to be retracted back into the rectum where it was also retroflexed noting no other pathology. Scope was returned to its normal position, slowly withdrawn until completely removed. The patient tolerated procedure well without any complications. She was taken to recovery room in stable condition. RECOMMENDATIONS: The patient will need repeat colonoscopy in 3 years due to multiple polyps. We will have the patient follow up in 2 weeks to discuss pathology and see how her symptoms are doing at that time. Also, we would recommend high fiber diet due to diverticulosis. If the patient has any problems prior to scheduled repeat endoscopy, she should be reevaluated at that time and considered to have it repeated. Job ID: [id number] DocumentID: [id number] Dictated Date: 03/30/2021 14:06:50 Negative Cleaner Date: 03/30/2021 22:19:38 Dictated By: HARLAN LINDSAY DO
== END 2021-03-30 14:40 | disposition home or self-care (01) ==
LOC: ENDO 10:29
PROVIDERS: ATTEND Surgery
DX: D12.2 Benign neoplasm of ascending colon (principal); D12.3 Benign neoplasm of transverse colon; K63.5 Polyp of colon; K57.30 Diverticulosis of large intestine without perforation or abscess without bleeding; K21.00 Gastro-esophageal reflux disease with esophagitis, without bleeding; I11.9 Hypertensive heart disease without heart failure; D50.9 Iron deficiency anemia, unspecified; E11.42 Type 2 diabetes mellitus with diabetic polyneuropathy; J44.9 Chronic obstructive pulmonary disease, unspecified; I25.10 Atherosclerotic heart disease of native coronary artery without angina pectoris; M79.7 Fibromyalgia; M10.9 Gout, unspecified; F32.A Depression, unspecified; F41.9 Anxiety disorder, unspecified; F17.210 Nicotine dependence, cigarettes, uncomplicated; Z79.899 Other long term (current) drug therapy; Z79.82 Long term (current) use of aspirin; Z79.4 Long term (current) use of insulin; Z79.84 Long term (current) use of oral hypoglycemic drugs; Z88.0 Allergy status to penicillin; Z88.5 Allergy status to narcotic agent; Z88.2 Allergy status to sulfonamides; Z88.1 Allergy status to other antibiotic agents; Z79.02 Long term (current) use of antithrombotics/antiplatelets; Z80.0 Family history of malignant neoplasm of digestive organs; Z95.5 Presence of coronary angioplasty implant and graft

== ENCOUNTER 2021-05-17 10:16 | Outpatient (RCR) | payer MEDICARE, MEDICAID ==
[~2021-05-17 10:16] MED LIST changes: +CYANOCOBALAMIN INJ 1000 MCG/ML (CANCER CENTER) ONE; +MONT-40 PO; -MONT10TA32 PO
[2021-05-17] MEDS ORDERED: CYANOCOBALAMIN INJ 1000 MCG/ML (CANCER CENTER) ONE (11:43)
== END 2021-06-11 | disposition home or self-care (01) ==
LOC: ONC 10:16
PROVIDERS: ATTEND Internal Medicine Hematology & Oncology
DX: D12.6 Benign neoplasm of colon, unspecified (principal); K20.90 Esophagitis, unspecified without bleeding; I10 Essential (primary) hypertension; E11.9 Type 2 diabetes mellitus without complications
CPT/HCPCS: 96372

== ENCOUNTER 2021-06-14 13:23 | Outpatient (RCR) | payer MEDICARE, MEDICAID ==
[~2021-06-14 13:23] MED LIST changes: -CYANOCOBALAMIN INJ 1000 MCG/ML (CANCER CENTER) ONE
[2021-06-14 13:32] LABS: BASOPHILS # (AUTO) 0.1 10^3/uL (0.0-0.1); BASOPHILS % (AUTO) 1 % (0-10); EOSINOPHILS # (AUTO) 0.3 10^3/uL (0.0-0.3); EOSINOPHILS % (AUTO) 2 % (0-10); HEMATOCRIT 35 % (35-52); HEMOGLOBIN 10.9 g/dL (11.5-16.0); LYMPHOCYTES # (AUTO) 2.5 10^3/uL (1.0-4.0); LYMPHOCYTES % (AUTO) 19 % (12-44); MEAN CORPUSCULAR HEMOGLOBIN 28 pg (25-34); MEAN CORPUSCULAR HGB CONC 31 g/dL (32-36); MEAN CORPUSCULAR VOLUME 89 fL (80-99); MEAN PLATELET VOLUME 10.5 fL (9.0-12.2); MONOCYTES % (AUTO) 7 % (0-12); NEUTROPHILS # (AUTO) 9.5 10^3/uL (1.8-7.8); NEUTROPHILS % (AUTO) 70 % (42-75); PLATELET COUNT 417 10^3/uL (130-400); WHITE BLOOD COUNT 13.5 10^3/uL (4.3-11.0)
[2021-06-14 13:49] LABS: ALBUMIN 3.9 GM/DL (3.2-4.5); BILIRUBIN,TOTAL 0.3 MG/DL (0.1-1.0); CALCIUM 9.5 MG/DL (8.5-10.1); CREATININE SERUM 1.19 MG/DL (0.60-1.30); POTASSIUM 4.8 MMOL/L (3.6-5.0); TOTAL PROTEIN 7.7 GM/DL (6.4-8.2)
[2021-06-14] MEDS ORDERED: CYANOCOBALAMIN INJ 1000 MCG/ML (CANCER CENTER) ONE (14:22)
== END 2021-07-12 | disposition home or self-care (01) ==
LOC: ONC 13:23
PROVIDERS: ATTEND Internal Medicine Hematology & Oncology
DX: D50.9 Iron deficiency anemia, unspecified (principal); E53.8 Deficiency of other specified B group vitamins; D72.829 Elevated white blood cell count, unspecified; E11.9 Type 2 diabetes mellitus without complications; I10 Essential (primary) hypertension
CPT/HCPCS: 80053; 82728; 83540; 83550; 85025; 96372; G0463; 99213

== ENCOUNTER → 2021-07-12 | Outpatient (CLI) | payer MEDICARE, MEDICAID | LOC: RT 15:27 | PROVIDERS: ATTEND Internal Medicine | DX: J44.9 Chronic obstructive pulmonary disease, unspecified (principal) | CPT/HCPCS: 94761 ==

== ENCOUNTER 2021-07-29 08:00 | Outpatient (RCR) | payer MEDICARE, MEDICAID ==
[2021-08-06 10:18] LABS: FREE T4 (FREE THYROXINE) 0.83 NG/DL (0.70-1.48)
== END 2021-08-09 | disposition home or self-care (01) ==
LOC: LAB 08:00 → EDSTATUS 10:44
PROVIDERS: ATTEND Internal Medicine
DX: E11.65 Type 2 diabetes mellitus with hyperglycemia (principal); E03.9 Hypothyroidism, unspecified; I10 Essential (primary) hypertension; Z13.6 Encounter for screening for cardiovascular disorders
CPT/HCPCS: 36415; 80061; 83036; 84439; 84443

== ENCOUNTER → 2021-08-09 | Outpatient (RCR) | payer MEDICARE, MEDICAID ==
[2021-08-06 09:26] LABS: BASOPHILS # (AUTO) 0.1 10^3/uL (0.0-0.1); BASOPHILS % (AUTO) 1 % (0-10); EOSINOPHILS # (AUTO) 0.3 10^3/uL (0.0-0.3); EOSINOPHILS % (AUTO) 3 % (0-10); HEMATOCRIT 34 % (35-52); HEMOGLOBIN 10.4 g/dL (11.5-16.0); LYMPHOCYTES % (AUTO) 20 % (12-44); MEAN CORPUSCULAR HEMOGLOBIN 27 pg (25-34); MEAN CORPUSCULAR HGB CONC 30 g/dL (32-36); MEAN CORPUSCULAR VOLUME 90 fL (80-99); MEAN PLATELET VOLUME 10.6 fL (9.0-12.2); MONOCYTES # (AUTO) 0.7 10^3/uL (0.0-1.0); MONOCYTES % (AUTO) 7 % (0-12); NEUTROPHILS # (AUTO) 7.1 10^3/uL (1.8-7.8); NEUTROPHILS % (AUTO) 70 % (42-75); PLATELET COUNT 414 10^3/uL (130-400); WHITE BLOOD COUNT 10.3 10^3/uL (4.3-11.0)
[2021-08-06 09:54] LABS: ALBUMIN 3.8 GM/DL (3.2-4.5); BILIRUBIN,TOTAL 0.3 MG/DL (0.1-1.0); CALCIUM 9.9 MG/DL (8.5-10.1); CREATININE SERUM 1.14 MG/DL (0.60-1.30); POTASSIUM 5.9 MMOL/L (3.6-5.0); TOTAL PROTEIN 7.4 GM/DL (6.4-8.2)
[~2021-08-09] MED LIST changes: +CYANOCOBALAMIN INJ 1000 MCG/ML (CANCER CENTER) ONE
== END | disposition home or self-care (01) ==
LOC: ONC 08-06 09:10
PROVIDERS: ATTEND Internal Medicine Hematology & Oncology
DX: D50.9 Iron deficiency anemia, unspecified (principal); E53.8 Deficiency of other specified B group vitamins; D72.829 Elevated white blood cell count, unspecified; E11.9 Type 2 diabetes mellitus without complications; I10 Essential (primary) hypertension; E66.01 Morbid (severe) obesity due to excess calories
CPT/HCPCS: 80053; 82607; 82728; 83540; 83550; 85025; G0463; 36415; 82274; 99213

== ENCOUNTER 2021-08-30 05:53 | Outpatient (CLI) | payer MEDICARE, MEDICAID ==
[~2021-08-30] VITALS: Ht 162.6 cm; Wt 105.6 kg
[~2021-08-30 05:53] MED LIST changes: -CYANOCOBALAMIN INJ 1000 MCG/ML (CANCER CENTER) ONE
[2021-08-30] MEDS ORDERED: VENL75TA2 PO (11:48)
[2021-08-30] MEDS ORDERED: SUCR1TAB PO (11:48)
== END 2021-08-30 12:08 | disposition home or self-care (01) ==
LOC: PREOP 05:53
PROVIDERS: ATTEND Surgery
DX: Z01.818 Encounter for other preprocedural examination (principal)

== ENCOUNTER 2021-09-07 08:48 | Day surgery (SDC) | payer MEDICARE, MEDICAID ==
[~2021-09-07] VITALS: Ht 162.6 cm; Wt 105.6 kg
[2021-09-07] MEDS ORDERED: LACTATED RINGERS 1,000 ML IV ONE (08:51)
[2021-09-07] MEDS ORDERED: LACTATED RINGERS 1,000 ML IV STA (08:53)
[2021-09-07] MEDS ORDERED: HURRICAINE EXT TUBE (BENZOCAINE) XX PRN (09:00)
--- NOTE | 2021-09-07 09:17 | Progress Note-Pre Operative ---
Pre-Operative Progress Note H&P Reviewed The H&P was reviewed, patient examined and no changes noted. Date Seen by Provider: Sep 07, 2021 Time Seen by Provider: 09:16 Date H&P Reviewed: Sep 07, 2021 Time H&P Reviewed: 09:16 Pre-Operative Diagnosis: occult positive stool, iron def anemia HARLAN DEE DO Sep 07, 2021 09:17
[2021-09-07 09:20] VITALS: BP 122/69
[2021-09-07] MEDS ORDERED: PROPOFOL INJECTION 50 ML IV ONE (10:15)
--- NOTE | 2021-09-07 10:49 | Progress Note-Post Operative ---
Post-Operative Progess Note Surgeon (s)/Risk Assessor (s) Surgeon HARLAN DEE DO Risk Assessor: na Pre-Operative Diagnosis occult positive stool, iron def anemia Post-Operative Diagnosis diverticulosis, slight internal hemorrhoids Procedure & Operative Findings Date of Procedure 09/07/21 Procedure Performed/Findings egd, colonoscopy Anesthesia Type per cabin outfitter Estimated Blood Loss Estimated blood loss (mL): none Specimens/Packing Specimens Removed none HARLAN DEE DO Sep 07, 2021 10:49
[2021-09-07 10:50] VITALS: BP 98/56
--- NOTE | 2021-09-07 10:53 | Discharge Inst-Simple/Standard ---
Discharge Inst-Standard Patient Instructions/Follow Up Plan of Care/Instructions/FU: 2 weeks [place] Activity as Tolerated: Yes Discharge Diet: Regular Diet HARLAN DEE DO Sep 07, 2021 10:53
[2021-09-07 10:55] VITALS: BP 99/55
[2021-09-07 11:15] VITALS: BP 112/63
--- NOTE | 2021-09-07 13:25 | Anesthesia-General Post-Op ---
MAC Patient Condition Mental Status/LOC: Same as Preop Cardiovascular: Satisfactory Nausea/Vomiting: Absent Respiratory: Satisfactory Pain: Controlled Complications: Absent Post Op Complications Complications None Follow Up Care/Instructions Patient Instructions None needed. Anesthesiology Discharge Order Discharge Order Patient is doing well, no complaints, stable vital signs, no apparent adverse anesthesia problems. No complications reported per nursing. DAVID ARTHUR CRNA Sep 07, 2021 13:25
--- NOTE | 2021-09-07 15:19 | OPERATIVE REPORT ---
DATE OF SERVICE: 09/07/2021 PREOPERATIVE DIAGNOSIS: Iron deficiency anemia, occult positive stool. POSTOPERATIVE DIAGNOSIS: Normal EGD, diverticulosis, internal hemorrhoids. PROCEDURE: EGD and colonoscopy. SURGEON: Harlan Lindsay DO ANESTHESIA: Per APPLIANCES SAMPLE MAKER. ESTIMATED BLOOD LOSS: None. COMPLICATIONS: None. INDICATIONS: The patient is a 60-year-old female with iron deficiency anemia and occult positive stool. She understands risks and benefits of procedure and wishes to proceed. Consent was signed in the chart. DESCRIPTION OF PROCEDURE: The patient was taken to endoscopy suite, placed in left lateral recumbent position. Timeout was performed. Scope was inserted in mouth, down the esophagus, stomach and into the duodenum without difficulty. There were no polyps, masses or ulcerations within the duodenum. Scope was slowly retracted back into the stomach where it was further insufflated. No polyps, masses or ulcerations. Scope was retroflexed noting no other pathology. Scope was returned to its normal position, slowly withdrawn to distal esophagus. No polyps, masses or ulcerations. Scope was slowly retracted back until completely removed. Digital rectal exam was performed. No palpable polyps, masses or ulcerations. Slight internal hemorrhoids. No polyps, masses or ulcerations. Scope was inserted in the rectum and advanced all the way to cecum with minimal difficulty. Prep was adequate. Scope was slowly retracted back. No polyps, masses or ulcerations in the cecum, ascending, transverse, descending and sigmoid colon. Mild amount of diverticulosis present in sigmoid colon. Once in the rectum, scope was retroflexed noting slight internal hemorrhoids. Scope was returned to its normal position, slowly withdrawn until completely removed, noting no other pathology. The patient tolerated procedure well without any complications. She was taken to recovery room in stable condition. RECOMMENDATIONS: The patient recommended high fiber diet. If continues to have anemia, we will consider capsule endoscopy, which will be arranged another facility since we do not have this also would recommend high fiber diet due to diverticulosis. CC: Dr. Cr - requested, unable to deliver. Job ID: [id number] DocumentID: [id number] Dictated Date: 09/07/2021 10:58:20 Cell Stripper Final Date: 09/07/2021 15:18:33 Dictated By: HARLAN LINDSAY DO
== END 2021-09-07 11:55 | disposition home or self-care (01) ==
LOC: ENDO 08:48
PROVIDERS: ATTEND Surgery
DX: K57.31 Diverticulosis of large intestine without perforation or abscess with bleeding (principal); K64.8 Other hemorrhoids; D50.0 Iron deficiency anemia secondary to blood loss (chronic); F17.210 Nicotine dependence, cigarettes, uncomplicated; Z90.49 Acquired absence of other specified parts of digestive tract; Z79.899 Other long term (current) drug therapy
CPT/HCPCS: 82947

== ENCOUNTER 2021-09-10 10:05 | Outpatient (RCR) | payer MEDICARE, MEDICAID ==
[2021-09-10] MEDS ORDERED: CYANOCOBALAMIN INJ 1000 MCG/ML INJ ONE (10:28)
== END 2021-10-09 | disposition home or self-care (01) ==
LOC: ONC 10:05
PROVIDERS: ATTEND Internal Medicine Hematology & Oncology
DX: E53.8 Deficiency of other specified B group vitamins (principal); E11.9 Type 2 diabetes mellitus without complications; I10 Essential (primary) hypertension; E66.01 Morbid (severe) obesity due to excess calories

== ENCOUNTER 2021-09-17 09:29 | Outpatient (CLI) | payer MEDICARE, MEDICAID | END 2021-09-17 09:50 | LOC: SLEEP 09:29 | PROVIDERS: ATTEND Nurse Practitioner | DX: G47.33 Obstructive sleep apnea (adult) (pediatric) (principal); G47.10 Hypersomnia, unspecified; J30.9 Allergic rhinitis, unspecified; H93.19 Tinnitus, unspecified ear; H91.93 Unspecified hearing loss, bilateral | CPT/HCPCS: G0399 ==

== ENCOUNTER 2021-11-05 08:49 | Outpatient (RCR) | payer MEDICARE, MEDICAID ==
[2021-11-05 09:04] LABS: BASOPHILS # (AUTO) 0.1 10^3/uL (0.0-0.1); BASOPHILS % (AUTO) 1 % (0-10); EOSINOPHILS # (AUTO) 0.4 10^3/uL (0.0-0.3); EOSINOPHILS % (AUTO) 4 % (0-10); HEMATOCRIT 33 % (35-52); HEMOGLOBIN 10.1 g/dL (11.5-16.0); LYMPHOCYTES # (AUTO) 2.1 10^3/uL (1.0-4.0); LYMPHOCYTES % (AUTO) 23 % (12-44); MEAN CORPUSCULAR HEMOGLOBIN 28 pg (25-34); MEAN CORPUSCULAR HGB CONC 31 g/dL (32-36); MEAN CORPUSCULAR VOLUME 91 fL (80-99); MEAN PLATELET VOLUME 10.9 fL (9.0-12.2); MONOCYTES % (AUTO) 11 % (0-12); NEUTROPHILS # (AUTO) 5.5 10^3/uL (1.8-7.8); NEUTROPHILS % (AUTO) 61 % (42-75); PLATELET COUNT 401 10^3/uL (130-400); WHITE BLOOD COUNT 9.1 10^3/uL (4.3-11.0)
[2021-11-05] MEDS ORDERED: CYANOCOBALAMIN INJ 1000 MCG/ML INJ SCH (10:13)
== END 2021-11-09 | disposition home or self-care (01) ==
LOC: ONC 08:49
PROVIDERS: ATTEND Internal Medicine Hematology & Oncology
DX: D72.829 Elevated white blood cell count, unspecified (principal); D50.9 Iron deficiency anemia, unspecified; E53.8 Deficiency of other specified B group vitamins; E11.9 Type 2 diabetes mellitus without complications; I26.99 Other pulmonary embolism without acute cor pulmonale; I10 Essential (primary) hypertension; E66.01 Morbid (severe) obesity due to excess calories
CPT/HCPCS: 82607; 82728; 83540; 83550; 85025; G0463; 36415; 99213

== ENCOUNTER → 2021-11-05 | Outpatient (CLI) | payer MEDICARE, MEDICAID ==
[2021-11-05 09:17] LABS: ALBUMIN 3.8 GM/DL (3.2-4.5); POTASSIUM 5.4 MMOL/L (3.6-5.0)
[2021-11-05 09:18] LABS: CALCIUM 9.3 MG/DL (8.5-10.1)
[2021-11-05 09:19] LABS: TOTAL PROTEIN 7.5 GM/DL (6.4-8.2)
[2021-11-05 09:21] LABS: BILIRUBIN,TOTAL 0.4 MG/DL (0.1-1.0)
[2021-11-05 09:23] LABS: CREATININE SERUM 1.15 MG/DL (0.60-1.30)
[2021-11-05 09:47] LABS: FREE T4 (FREE THYROXINE) 0.97 NG/DL (0.70-1.48)
== END ==
LOC: LAB 08:52
PROVIDERS: ATTEND Internal Medicine
DX: Z13.6 Encounter for screening for cardiovascular disorders (principal); E11.65 Type 2 diabetes mellitus with hyperglycemia; E03.9 Hypothyroidism, unspecified; I10 Essential (primary) hypertension
CPT/HCPCS: 36415; 80053; 80061; 83036; 84439; 84443

== ENCOUNTER → 2021-12-09 | Outpatient (RCR) | payer MEDICAID, MEDICARE ==
[2021-12-09 10:15] LABS: BASOPHILS # (AUTO) 0.1 10^3/uL (0.0-0.1); BASOPHILS % (AUTO) 1 % (0-10); EOSINOPHILS # (AUTO) 0.5 10^3/uL (0.0-0.3); EOSINOPHILS % (AUTO) 4 % (0-10); HEMATOCRIT 34 % (35-52); HEMOGLOBIN 10.8 g/dL (11.5-16.0); LYMPHOCYTES # (AUTO) 2.4 10^3/uL (1.0-4.0); LYMPHOCYTES % (AUTO) 20 % (12-44); MEAN CORPUSCULAR HEMOGLOBIN 29 pg (25-34); MEAN CORPUSCULAR HGB CONC 32 g/dL (32-36); MEAN CORPUSCULAR VOLUME 91 fL (80-99); MEAN PLATELET VOLUME 10.7 fL (9.0-12.2); MONOCYTES % (AUTO) 8 % (0-12); NEUTROPHILS # (AUTO) 8.1 10^3/uL (1.8-7.8); NEUTROPHILS % (AUTO) 67 % (42-75); PLATELET COUNT 449 10^3/uL (130-400); WHITE BLOOD COUNT 12.2 10^3/uL (4.3-11.0)
[2021-12-09 10:42] LABS: POTASSIUM 5.2 MMOL/L (3.6-5.0)
[2021-12-09 10:43] LABS: ALBUMIN 4.1 GM/DL (3.2-4.5); BILIRUBIN,TOTAL 0.4 MG/DL (0.1-1.0); CREATININE SERUM 1.17 MG/DL (0.60-1.30); TOTAL PROTEIN 8.3 GM/DL (6.4-8.2)
== END | disposition home or self-care (01) ==
LOC: ONC 11-11 09:45
PROVIDERS: ATTEND Internal Medicine Hematology & Oncology
DX: D72.829 Elevated white blood cell count, unspecified (principal); D50.9 Iron deficiency anemia, unspecified; E53.8 Deficiency of other specified B group vitamins; E11.9 Type 2 diabetes mellitus without complications; I26.99 Other pulmonary embolism without acute cor pulmonale; I10 Essential (primary) hypertension; E66.01 Morbid (severe) obesity due to excess calories
CPT/HCPCS: 36415; 80053; 82274; 82607; 82728; 83540; 83550; 85025; 99213

== ENCOUNTER 2021-12-16 12:59 | Outpatient (RCR) | payer MEDICAID, MEDICARE ==
[2021-12-17] MEDS ORDERED: CYANOCOBALAMIN INJ 1000 MCG/ML INJ ONE (13:36)
== END 2022-01-09 | disposition home or self-care (01) ==
LOC: ONC 12:59
PROVIDERS: ATTEND Internal Medicine Hematology & Oncology
DX: D50.9 Iron deficiency anemia, unspecified (principal); D72.829 Elevated white blood cell count, unspecified; E53.8 Deficiency of other specified B group vitamins; E11.9 Type 2 diabetes mellitus without complications; I26.99 Other pulmonary embolism without acute cor pulmonale; I10 Essential (primary) hypertension; E66.01 Morbid (severe) obesity due to excess calories
CPT/HCPCS: 96372

== ENCOUNTER 2022-01-31 13:35 | Outpatient (RCR) | payer MEDICAID, MEDICARE ==
[2022-01-31] MEDS ORDERED: CYANOCOBALAMIN INJ 1000 MCG/ML INJ ONE (13:48)
== END 2022-02-09 | disposition home or self-care (01) ==
LOC: ONC 13:35
PROVIDERS: ATTEND Internal Medicine Hematology & Oncology
DX: D50.9 Iron deficiency anemia, unspecified (principal); D72.829 Elevated white blood cell count, unspecified; E53.8 Deficiency of other specified B group vitamins; E11.9 Type 2 diabetes mellitus without complications; I26.99 Other pulmonary embolism without acute cor pulmonale; I10 Essential (primary) hypertension; E66.01 Morbid (severe) obesity due to excess calories
CPT/HCPCS: 96372

== ENCOUNTER → 2022-02-09 | Outpatient (CLI) | payer MEDICARE, MEDICAID ==
[2022-02-09 11:26] LABS: ALBUMIN 3.9 GM/DL (3.2-4.5); BILIRUBIN,TOTAL 0.2 MG/DL (0.1-1.0); CALCIUM 10.1 MG/DL (8.5-10.1); CREATININE SERUM 1.33 MG/DL (0.60-1.30); POTASSIUM 5.3 MMOL/L (3.6-5.0); TOTAL PROTEIN 8.1 GM/DL (6.4-8.2)
[2022-02-09 15:33] LABS: FREE T4 (FREE THYROXINE) 1.07 NG/DL (0.70-1.48)
== END ==
LOC: LAB FS 10:13
PROVIDERS: ATTEND Internal Medicine
DX: Z13.6 Encounter for screening for cardiovascular disorders (principal); E11.65 Type 2 diabetes mellitus with hyperglycemia; E03.9 Hypothyroidism, unspecified; I10 Essential (primary) hypertension
CPT/HCPCS: 36415; 80053; 82043; 82465; 83036; 84439; 84443; 84478

== ENCOUNTER → 2022-02-09 | Outpatient (CLI) | payer MEDICARE, MEDICAID ==
[2022-02-09 15:32] LABS: FREE T4 (FREE THYROXINE) 1.06 NG/DL (0.70-1.48)
== END ==
LOC: LAB FS 10:18
PROVIDERS: ATTEND Internal Medicine Hematology & Oncology
DX: D50.9 Iron deficiency anemia, unspecified (principal)
CPT/HCPCS: 36415; 82043; 84439; 84443; 84481

== ENCOUNTER 2022-02-17 12:16 | Outpatient (RCR) | payer MEDICAID, MEDICARE ==
[2022-02-17] MEDS ORDERED: CYANOCOBALAMIN INJ 1000 MCG/ML INJ ONE (12:34)
[2022-02-17 13:34] LABS: BASOPHILS # (AUTO) 0.1 10^3/uL (0.0-0.1); BASOPHILS % (AUTO) 1 % (0-10); EOSINOPHILS # (AUTO) 0.4 10^3/uL (0.0-0.3); EOSINOPHILS % (AUTO) 5 % (0-10); HEMATOCRIT 30 % (35-52); HEMOGLOBIN 9.6 g/dL (11.5-16.0); LYMPHOCYTES # (AUTO) 0.9 10^3/uL (1.0-4.0); LYMPHOCYTES % (AUTO) 12 % (12-44); MEAN CORPUSCULAR HEMOGLOBIN 28 pg (25-34); MEAN CORPUSCULAR HGB CONC 32 g/dL (32-36); MEAN CORPUSCULAR VOLUME 88 fL (80-99); MEAN PLATELET VOLUME 10.3 fL (9.0-12.2); MONOCYTES # (AUTO) 0.9 10^3/uL (0.0-1.0); MONOCYTES % (AUTO) 12 % (0-12); NEUTROPHILS # (AUTO) 5.4 10^3/uL (1.8-7.8); NEUTROPHILS % (AUTO) 70 % (42-75); PLATELET COUNT 422 10^3/uL (130-400); WHITE BLOOD COUNT 7.6 10^3/uL (4.3-11.0)
[2022-03-01] MEDS ORDERED: NF-SODBICA PO (13:26)
[2022-03-01] MEDS ORDERED: ONDA4TAB11 SL (13:26)
== END 2022-03-10 10:17 | disposition home or self-care (01) ==
LOC: ONC 12:16
PROVIDERS: ATTEND Internal Medicine Hematology & Oncology
DX: D50.9 Iron deficiency anemia, unspecified (principal); D72.829 Elevated white blood cell count, unspecified; E53.8 Deficiency of other specified B group vitamins; E11.9 Type 2 diabetes mellitus without complications; I26.99 Other pulmonary embolism without acute cor pulmonale; I10 Essential (primary) hypertension
CPT/HCPCS: 82728; 83540; 83550; 85025

== ENCOUNTER → 2022-02-25 | Outpatient (CLI) | payer MEDICARE, MEDICAID ==
--- NOTE | 2022-02-25 13:18 | Diagnostic Imaging Report ---
CLINICAL INDICATION: Patient fell three times about two weeks ago. Patient has headaches and dizziness. EXAM: Axial CT scan of the brain performed without IV contrast with sagittal and coronal reformatted images. Auto Exposure Controls were utilized during the CT exam to meet ALARA standards for radiation dose reduction. COMPARISON: Head CT without contrast dated 10/25/2020. FINDINGS: There is no evidence of acute cerebral infarct, intracranial hemorrhage, or gross mass effect. The brain parenchymal volume appears appropriate for patient's age. There is normal raymundo-white matter distinction. There is no significant midline shift or herniation. There is no evidence of hydrocephalus. The basal cisterns are unremarkable. The skull, extracranial soft tissue, and orbits are unremarkable. There is [id number] amount of consolidation involving both maxillary sinuses. There is high density within both maxillary sinuses, which may represent inspissated secretions or fungal elements. Temporal bones show no significant abnormality. IMPRESSION: 1: There is no evidence of acute intracranial process. 2: There is bilateral maxillary sinus disease. Dictated by: Dictated on workstation # [id number]
== END ==
LOC: CARD 10:31
PROVIDERS: ATTEND Nurse Practitioner Family
DX: J32.0 Chronic maxillary sinusitis (principal); R55 Syncope and collapse
CPT/HCPCS: 70450; 93225; 93226; 93306

== ENCOUNTER 2022-03-01 08:36 | Emergency (ER) | payer MEDICARE, MEDICAID ==
[~2022-03-01] VITALS: Ht 162 cm; Wt 101.0 kg
[2022-03-01] MEDS ORDERED: LACTATED RINGERS 1,000 ML IV ONE (09:00)
[2022-03-01] MEDS ORDERED: ONDANSETRON 4 MG/2 ML (SDV) Z0FRAN IVP ONE (09:00)
[2022-03-01 09:11] LABS: BASOPHILS # (AUTO) 0.1 10^3/uL (0.0-0.1); BASOPHILS % (AUTO) 1 % (0-10); EOSINOPHILS # (AUTO) 1.6 10^3/uL (0.0-0.3); EOSINOPHILS % (AUTO) 15 % (0-10); HEMATOCRIT 33 % (35-52); HEMOGLOBIN 10.8 g/dL (11.5-16.0); LYMPHOCYTES # (AUTO) 2.2 10^3/uL (1.0-4.0); LYMPHOCYTES % (AUTO) 20 % (12-44); MEAN CORPUSCULAR HEMOGLOBIN 28 pg (25-34); MEAN CORPUSCULAR HGB CONC 32 g/dL (32-36); MEAN CORPUSCULAR VOLUME 87 fL (80-99); MEAN PLATELET VOLUME 10.9 fL (9.0-12.2); MONOCYTES # (AUTO) 1.4 10^3/uL (0.0-1.0); MONOCYTES % (AUTO) 13 % (0-12); NEUTROPHILS # (AUTO) 5.4 10^3/uL (1.8-7.8); NEUTROPHILS % (AUTO) 50 % (42-75); PLATELET COUNT 526 10^3/uL (130-400); WHITE BLOOD COUNT 10.8 10^3/uL (4.3-11.0)
[2022-03-01 09:35] LABS: BAND NEUTROPHILS 0 %; BASOPHILS % (MANUAL) 1 %; EOSINOPHILS % (MANUAL) 13 %; LYMPHOCYTES % (MANUAL) 23 %; MONOCYTES % (MANUAL) 10 %; NEUTROPHILS % (MANUAL) 53 %
[2022-03-01 09:36] LABS: ANISOCYTOSIS MODERATE; TARGET CELLS MODERATE
[2022-03-01 10:28] LABS: ALBUMIN 2.8 GM/DL (3.2-4.5)
[2022-03-01 10:29] LABS: CALCIUM 11.9 MG/DL (8.5-10.1)
[2022-03-01 10:31] LABS: TOTAL PROTEIN 7.4 GM/DL (6.4-8.2)
[2022-03-01 10:33] LABS: BILIRUBIN,TOTAL 1.1 MG/DL (0.1-1.0); POTASSIUM 6.3 MMOL/L (3.6-5.0)
[2022-03-01 10:34] LABS: CREATININE SERUM 1.49 MG/DL (0.60-1.30)
[2022-03-01] MEDS ORDERED: NS IV 1000 ML 1,000 ML IV SCH (11:00)
[2022-03-01 11:43] LABS: BILIRUBIN,URINE NEGATIVE (NEGATIVE); CLARITY,URINE CLEAR; COLOR,URINE YELLOW; GLUCOSE, URINE (UA) NEGATIVE (NEGATIVE); KETONES,URINE NEGATIVE (NEGATIVE); LEUKOCYTE ESTERASE ,URINE NEGATIVE (NEGATIVE); NITRITE,URINE NEGATIVE (NEGATIVE); PROTEIN,URINE NEGATIVE (NEGATIVE)
[2022-03-01 12:11] LABS: BACTERIA,URINE NEGATIVE /HPF; RBC,URINE RARE /HPF
[2022-03-01] MEDS ORDERED: fentaNYL INJ 100 MCG/2 ML AMP IVP ONE (12:30)
[2022-03-01] MEDS ORDERED: NS IV 500 ML 500 ML IV ONE (12:45)
--- NOTE | 2022-03-01 13:25 | ED General ---
General Chief Complaint: General Problems/Pain Stated Complaint: VOMITING/WEAKNESS/SHAKING Nursing Triage Note: PT STATES VOMITING OVER THE WEEKEND, LT FLANK PAIN, ABSCESS ON POSTERIOR LT ARM THAT SHE HAS SEEN DR. DEE FOR, FATIGUE. Source of Information: Patient, Old Records Exam Limitations: No Limitations 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 Patient Home Medication List Albuterol Sulfate (Proair Hfa) 1 Puff Puff, 2 PUFF IH Q4H PRN for SHORTNESS OF BREATH, (Reported) Entered as Reported by: EMILIA SMITH on 10/02/20 032 Allopurinol (Allopurinol) 100 Mg Tablet, 100 MG PO 1200,2200, (Reported) Entered as Reported by: EMILIA SMITH on 10/02/20 032 Alprazolam (Alprazolam) 0.5 Mg Tablet, 0.5 MG PO Q6HR PRN for ANXIETY Prescribed by: JEREMY RODRIGUEZ on 10/04/20 1256 Amlodipine Besylate (Amlodipine Besylate) 5 Mg Tablet, 5 MG PO 1999, (Reported) Entered as Reported by: EMILIA SMITH on 10/02/20 032 Aspirin (Aspirin EC) 81 Mg Tablet.dr, 162 MG PO DAILY, (Reported) Entered as Reported by: EMILIA SMITH on 10/02/20 032 Atorvastatin Calcium (Atorvastatin Calcium) 40 Mg Tablet, 40 MG PO HS, (Reported) Entered as Reported by: EMILIA SMITH on 10/02/20 032 Diphenhydramine HCl (Benadryl) 25 Mg Capsule, 25 MG PO HS, (Reported) Entered as Reported by: MT PEREZ on 10/02/20 102 Fluticasone Propionate (Flonase Allergy Relief) 9.9 Ml [place].susp, 1-2 SPRAY NS DAILY PRN for CONGESTION, (Reported) Entered as Reported by: MT PEREZ on 10/02/20 102 Gabapentin (Neurontin) 300 Mg Capsule, 300 MG PO TID, (Reported) Entered as Reported by: MT PEREZ on 10/02/20 102 Gemfibrozil (Gemfibrozil) 600 Mg Tablet, 600 MG PO BID, (Reported) Entered as Reported by: EMILIA SMITH on 10/02/20328 Hydrocodone/Acetaminophen (Hydrocodone-Acetamin 7.5-325) 1 Each Tablet, 1 EACH PO Q6H PRN for PAIN-MODERATE (5-7) Prescribed by: JEREMY RODRIGUEZ on 10/04/20 1256 Insulin NPL/Insulin Lispro (Humalog Mix 50-50 Kwikpen) 100 Unit/1 Ml Insuln.pen, 90 UNIT SQ BID, (Reported) Entered as Reported by: EMILIA SMITH on 10/02/20328 Insulin NPL/Insulin Lispro (Humalog Mix 50-50 Kwikpen) 100 Unit/1 Ml Insuln.pen, 60 UNIT SQ 1200, (Reported) Entered as Reported by: MT PEREZ on 10/02/20 1148 Isosorbide Mononitrate (Isosorbide Mononitrate ER) 120 Mg Tab.er.24h, 120 MG PO 2000, (Reported) Entered as Reported by: EMILIA SMITH on 10/02/20328 Lisinopril (Lisinopril) 10 Mg Tablet, 10 MG PO 1200, (Reported) Entered as Reported by: EMILIA SMITH on 10/02/20328 Melatonin (Melatonin) 10 Mg Tablet, 10 MG PO HS, (Reported) Entered as Reported by: MT PEREZ on 10/02/20 102 Meloxicam (Meloxicam) 15 Mg Tablet, 15 MG PO HS, (Reported) Entered as Reported by: EMILIA SMITH on 10/02/20328 Metformin HCl (Metformin HCl) 1,000 Mg Tablet, 1,000 MG PO 1200,2200, (Reported) Entered as Reported by: MT PEREZ on 10/02/20 102 Metoprolol Succinate (Metoprolol Succinate) 100 Mg Tab.er.24h, 100 MG PO 1800, (Reported) Entered as Reported by: EMILIA SMITH on 10/02/20328 Montelukast Sodium (Montelukast Sodium) 10 Mg Tablet, 10 MG PO HS, (Reported) Entered as Reported by: EMILIA SMITH on 10/02/20328 Nitroglycerin (Nitroglycerin) 0.4 Mg Tab.subl, 0.4 MG SL UD PRN for CHEST PAIN, (Reported) Entered as Reported by: EMILIA SMITH on 10/02/20328 Pantoprazole Sodium (Pantoprazole Sodium) 40 Mg Tablet.dr, 40 MG PO HS, (Reported) Entered as Reported by: EMILIA SMITH on 10/02/20328 Ranolazine (Ranolazine ER) 500 Mg Tab.er.12h, 500 MG PO 1200,2200, (Reported) Entered as Reported by: EMILIA SMITH on 10/02/20328 Sitagliptin Phosphate (Januvia) 100 Mg Tablet, 100 MG PO DAILY, (Reported) Entered as Reported by: EMILIA SMITH on 10/02/20328 Sucralfate (Sucralfate) 1 Gm Tablet, 1 GM PO QID, (Reported) Entered as Reported by: LOUIE LEMON on 08/30/21 1148 Venlafaxine HCl (Venlafaxine HCl ER) 75 Mg Tab.er.24, 75 MG PO 1800, (Reported) Entered as Reported by: EMILIA SMITH on 10/02/20328 Venlafaxine HCl (Venlafaxine HCl ER) 75 Mg Tab.er.24, 75 MG PO DAILY, (Reported) Entered as Reported by: LOUIE LEMON on 08/30/21 1148 Past Oliagbd-Zeotjc-Wxrebj Hx Patient Social History Tobacco Use?: Yes Tobacco type used: Cigarettes Smoking Status: Current Everyday Smoker Substance use?: No Alcohol Use?: No Immunizations Up To Date Tetanus Booster (TDap): Unknown First/Initial COVID19 Vaccinat: 07/28/2020 Second COVID19 Vaccination Bruce: 08/25/2020 Third COVID19 Vaccination Date: NO Seasonal Allergies Seasonal Allergies: Yes Past Medical History Surgery/Hospitalization HX: TYPE II DIABETIC, CAD WITH 1 STENT, GALLBLADDER, C SECTION, APPENDECTOMY, RT KNEE SCOPE, RT SHOULDER Surgeries: Yes Appendectomy, Coronary Stent, Gallbladder, 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, Orthopedic Respiratory: Yes Asthma Cardiac: Yes ("Hole in heart") Coronary Artery Disease, Heart Attack, High Cholesterol, Hypertension Neurological: Yes Neuropathy, Seizure Disorder TIN POURER History: 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 Genitourinary: No Gastrointestinal: Yes Gastroesophageal Reflux Musculoskeletal: Yes Fibromyalgia, Gout Endocrine: Yes Diabetes, Insulin dep HEENT: No Cancer: Yes ("FEMALE") Uterine Did You Recieve Any Treatments: Yes What Type of Treatment Did You: Surgical Intervention Psychosocial: Yes Anxiety, Depression Integumentary: No Blood Disorders: Yes (ANEMIA) Adverse Reaction/Blood Tranf: No Physical Exam Vital Signs Vital Signs - First Documented 03/01/22 08:47 Temp 36.4 Pulse 70 Resp 20 B/P (MAP) 122/65 (84) Pulse Ox 98 Capillary Refill : Less Than 3 Seconds Height, Weight, BMI Height: 5'3" Weight: 201lbs. oz. 91.955683hp; 38.00 BMI Method: Progress/Results/Core Measures Suspected Sepsis SIRS Temperature: Pulse: 70 Respiratory Rate: 20 Laboratory Tests 03/01/22 09:00: White Blood Count 10.8 Blood Pressure 122 /65 Mean: 84 Laboratory Tests 03/01/22 09:00: Platelet Count 526H 03/01/22 10:03: Creatinine 1.49H, Total Bilirubin 1.1H Results/Orders Lab Results Laboratory Tests Test 03/01/22 09:00 03/01/22 10:03 03/01/22 11:15 03/01/22 11:25 Range/Units White Blood Count 10.8 4.3-11.0 10^3/uL Red Blood Count 3.82 3.80-5.11 10^6/uL Hemoglobin 10.8 L 11.5-16.0 g/dL Hematocrit 33 L 35-52 % Mean Corpuscular Volume 87 80-99 fL Mean Corpuscular Hemoglobin 28 25-34 pg Mean Corpuscular Hemoglobin Concent 32 32-36 g/dL Red Cell Distribution Width 18.5 H 10.0-14.5 % Platelet Count 526 H 130-400 10^3/uL Mean Platelet Volume 10.9 9.0-12.2 fL Immature Granulocyte % (Auto) 0 % Neutrophils (%) (Auto) 50 42-75 % Lymphocytes (%) (Auto) 20 12-44 % Monocytes (%) (Auto) 13 H 0-12 % Eosinophils (%) (Auto) 15 H 0-10 % Basophils (%) (Auto) 1 0-10 % Neutrophils # (Auto) 5.4 1.8-7.8 10^3/uL Lymphocytes # (Auto) 2.2 1.0-4.0 10^3/uL Monocytes # (Auto) 1.4 H 0.0-1.0 10^3/uL Eosinophils # (Auto) 1.6 H 0.0-0.3 10^3/uL Basophils # (Auto) 0.1 0.0-0.1 10^3/uL Immature Granulocyte # (Auto) 0.0 0.0-0.1 10^3/uL Neutrophils % (Manual) 53 % Lymphocytes % (Manual) 23 % Monocytes % (Manual) 10 % Eosinophils % (Manual) 13 % Basophils % (Manual) 1 % Band Neutrophils 0 % Anisocytosis MODERATE Target Cells MODERATE Sodium Level 131 L 135-145 MMOL/L Potassium Level 6.3 H 3.6-5.0 MMOL/L Chloride Level 105 98-107 MMOL/L Carbon Dioxide Level 16 L 21-32 MMOL/L Anion Gap 10 5-14 MMOL/L Blood Urea Nitrogen 34 H 7-18 MG/DL Creatinine 1.49 H 0.60-1.30 MG/DL Estimat Glomerular Filtration Rate 39 BUN/Creatinine Ratio 23 Glucose Level 161 H 70-105 MG/DL Calcium Level 11.9 H 8.5-10.1 MG/DL Corrected Calcium 12.9 H 8.5-10.1 MG/DL Total Bilirubin 1.1 H 0.1-1.0 MG/DL Aspartate Amino Transf (AST/SGOT) 30 5-34 U/L Alanine Aminotransferase (ALT/SGPT) 29 0-55 U/L Alkaline Phosphatase 237 H 40-136 U/L Total Protein 7.4 6.4-8.2 GM/DL Albumin 2.8 L 3.2-4.5 GM/DL Influenza Type A (RT-PCR) Not Detected Not Detecte Influenza Type B (RT-PCR) Not Detected Not Detecte SARS-CoV-2 RNA (RT-PCR) Not Detected Not Detecte Urine Color YELLOW Urine Clarity CLEAR Urine pH 6.0 5-9 Urine Specific [place] 1.020 1.016-1.022 Urine Protein NEGATIVE NEGATIVE Urine Glucose (UA) NEGATIVE NEGATIVE Urine Ketones NEGATIVE NEGATIVE Urine Nitrite NEGATIVE NEGATIVE Urine Bilirubin NEGATIVE NEGATIVE Urine Urobilinogen 0.2 < = 1.0 MG/DL Urine Leukocyte Esterase NEGATIVE NEGATIVE Urine RBC (Auto) 2+ H NEGATIVE Urine RBC RARE /HPF Urine WBC NONE /HPF Urine Squamous Epithelial Cells NONE /HPF Urine Crystals NONE /LPF Urine Bacteria NEGATIVE /HPF Urine Casts NONE /LPF Urine Mucus NEGATIVE /LPF Urine Culture Indicated NO My Orders Orders - EASTON GREY MD Ed Iv/Invasive Line Start (03/01/22 08:48) Lactated Ringers (Lr 1000 Ml Iv Solution (03/01/22 09:00) Cbc With Automated Diff (03/01/22 08:48) Comprehensive Metabolic Panel (03/01/22 08:48) Ua Culture If Indicated (03/01/22 08:48) Ondansetron Injection (Zofran Injectio (03/01/22 09:00) Manual Differential (03/01/22 09:00) Ns Iv 1000 Ml (Sodium Chloride 0.9%) (03/01/22 11:00) Covid 19 Inhouse Test (03/01/22 11:18) Influenza A And B By Pcr (03/01/22 11:18) Fentanyl Inj (Sublimaze Injection) (03/01/22 12:30) Ns Iv 500 Ml (Sodium Chloride 0.9%) (03/01/22 12:45) Medications Given in ED Current Medications Medications Dose Ordered Sig/Janelle Route Start Time Stop Time Status Last Admin Dose Admin Fentanyl Citrate 50 mcg ONCE ONCE IVP 03/01/22 12:30 03/01/22 12:31 DC 03/01/22 12:30 50 MCG Lactated Ringer's 1,000 ml @ 0 mls/hr Q0M ONCE IV 03/01/22 09:00 03/01/22 09:01 DC 03/01/22 09:35 1,000 MLS/HR Ondansetron HCl 8 mg ONCE ONCE IVP 03/01/22 09:00 03/01/22 09:01 DC 03/01/22 09:35 8 MG Sodium Chloride 500 ml @ 0 mls/hr Q0M ONCE IV 03/01/22 12:45 03/01/22 12:46 DC 03/01/22 13:02 0 MLS/HR Vital Signs/I&O 03/01/22 03/01/22 08:47 12:30 Temp 36.4 36.4 Pulse 70 Resp 20 B/P (MAP) 122/65 (84) Pulse Ox 98 Capillary Refill : Less Than 3 Seconds Blood Pressure Mean: 84 Departure Impression Primary Impression: Nausea & vomiting Qualified Codes: R11.2 - Nausea with vomiting, unspecified Additional Impressions: Hyperkalemia Renal insufficiency Disposition: 01 HOME, SELF-CARE Condition: Improved Departure-Patient Inst. Decision time for Depature: 13:19 Referrals: JEREMY RODRIGUEZ DO (PCP/Family) Primary Care Physician Patient Instructions: Hyperkalemia Add. Discharge Instructions: Stop lisinopril. Your blood pressures are on the lower side of normal, so you do not need lisinopril to control blood pressure at this time. Additionally, your potassium is high, and lisinopril may increase potassium levels. Drink plenty of water. In addition, we are prescribing sodium bicarb to help support kidney function. Use Zofran (ondansetron) as prescribed for nausea and vomiting. You need to follow-up with Dr. Rodriguez next week to have your potassium checked again. Please contact her office for follow-up instructions. Use Tylenol (acetaminophen) up to 1000 mg every 6 hours as needed for aches and pains. Return to the ER if you have worsening symptoms despite following these instructions. All discharge instructions reviewed with patient and/or family. Voiced understanding. Scripts Ondansetron (Ondansetron Odt) 4 Mg Tab.rapdis 4 MG SL Q4H PRN for NAUSEA/VOMITING, #10 TAB Prov: EASTON GREY MD 03/01/22 Sodium Bicarbonate (Sodium Bicarbonate) 650 Mg Tablet 650 MG PO BID, #20 TAB Prov: EASTON GREY MD 03/01/22 EASTON GREY MD Mar 01, 2022 13:25
[2022-03-01] MEDS ORDERED: NF-SODBICA PO (13:26)
[2022-03-01] MEDS ORDERED: ONDA4TAB11 SL (13:26)
[2022-03-01 13:38] VITALS: BP 119/55
== END 2022-03-01 13:38 | disposition home or self-care (01) ==
LOC: EDUNIT# 08:36 → ER 08:38
DX: N28.9 Disorder of kidney and ureter, unspecified (principal); E87.5 Hyperkalemia; E11.40 Type 2 diabetes mellitus with diabetic neuropathy, unspecified; F17.210 Nicotine dependence, cigarettes, uncomplicated; Z20.822 Contact with and (suspected) exposure to COVID-19; Z79.4 Long term (current) use of insulin
CPT/HCPCS: 36415; 80053; 81000; 85007; 85027; 87636

== ENCOUNTER 2022-03-17 13:25 | Outpatient (RCR) | payer MEDICAID, MEDICARE ==
[~2022-03-17 13:25] MED LIST changes: +ALBU8.5H6 IH; +NF-SODBICA PO; +ONDA4TAB11 SL; -RT-ALBUINH IH
[2022-03-17] MEDS ORDERED: CYANOCOBALAMIN INJ 1000 MCG/ML INJ SCH (13:45)
== END 2022-04-11 | disposition home or self-care (01) ==
LOC: ONC 13:25
PROVIDERS: ATTEND Internal Medicine Hematology & Oncology
DX: D50.9 Iron deficiency anemia, unspecified (principal); E11.9 Type 2 diabetes mellitus without complications; I26.99 Other pulmonary embolism without acute cor pulmonale; I10 Essential (primary) hypertension; D51.9 Vitamin B12 deficiency anemia, unspecified; J44.9 Chronic obstructive pulmonary disease, unspecified; E66.9 Obesity, unspecified; Z68.37 Body mass index [BMI] 37.0-37.9, adult; E78.5 Hyperlipidemia, unspecified; Z72.0 Tobacco use
CPT/HCPCS: 96372

== ENCOUNTER 2022-04-21 13:17 | Outpatient (RCR) | payer MEDICARE, MEDICAID ==
[2022-04-21 13:46] LABS: BASOPHILS # (AUTO) 0.1 10^3/uL (0.0-0.1); BASOPHILS % (AUTO) 1 % (0-10); EOSINOPHILS # (AUTO) 0.3 10^3/uL (0.0-0.3); EOSINOPHILS % (AUTO) 3 % (0-10); HEMATOCRIT 33 % (35-52); HEMOGLOBIN 10.8 g/dL (11.5-16.0); LYMPHOCYTES # (AUTO) 2.3 10^3/uL (1.0-4.0); LYMPHOCYTES % (AUTO) 19 % (12-44); MEAN CORPUSCULAR HEMOGLOBIN 29 pg (25-34); MEAN CORPUSCULAR HGB CONC 33 g/dL (32-36); MEAN CORPUSCULAR VOLUME 88 fL (80-99); MEAN PLATELET VOLUME 11.6 fL (9.0-12.2); MONOCYTES # (AUTO) 0.9 10^3/uL (0.0-1.0); MONOCYTES % (AUTO) 7 % (0-12); NEUTROPHILS # (AUTO) 8.5 10^3/uL (1.8-7.8); NEUTROPHILS % (AUTO) 70 % (42-75); PLATELET COUNT 439 10^3/uL (130-400); WHITE BLOOD COUNT 12.2 10^3/uL (4.3-11.0)
[2022-04-21] MEDS ORDERED: CYANOCOBALAMIN INJ 1000 MCG/ML INJ ONE (13:49)
[2022-04-21 14:08] LABS: ALBUMIN 3.7 GM/DL (3.2-4.5); BILIRUBIN,TOTAL 0.2 MG/DL (0.1-1.0); CALCIUM 9.9 MG/DL (8.5-10.1); CREATININE SERUM 1.75 MG/DL (0.60-1.30); POTASSIUM 4.8 MMOL/L (3.6-5.0); TOTAL PROTEIN 8.2 GM/DL (6.4-8.2)
== END 2022-05-11 | disposition home or self-care (01) ==
LOC: ONC 13:17
PROVIDERS: ATTEND Internal Medicine Hematology & Oncology
DX: D50.9 Iron deficiency anemia, unspecified (principal); E11.9 Type 2 diabetes mellitus without complications; I26.99 Other pulmonary embolism without acute cor pulmonale; I10 Essential (primary) hypertension; D51.9 Vitamin B12 deficiency anemia, unspecified; J44.9 Chronic obstructive pulmonary disease, unspecified; E66.9 Obesity, unspecified; Z68.37 Body mass index [BMI] 37.0-37.9, adult; E78.5 Hyperlipidemia, unspecified; Z72.0 Tobacco use
CPT/HCPCS: 80053; 82728; 83540; 83550; 85025; G0463; 36415

== ENCOUNTER 2022-04-28 12:17 | Emergency (ER) | payer MEDICARE, MEDICAID ==
[2022-04-28 12:48] LABS: HEMOGLOBIN 11.4 g/dL (11.5-16.0); MEAN PLATELET VOLUME 12.1 fL (9.0-12.2); NEUTROPHILS # (AUTO) 7.9 10^3/uL (1.8-7.8)
[2022-04-28 12:50] LABS: BASOPHILS # (AUTO) 0.1 10^3/uL (0.0-0.1); BASOPHILS % (AUTO) 1 % (0-10); EOSINOPHILS # (AUTO) 0.3 10^3/uL (0.0-0.3); EOSINOPHILS % (AUTO) 2 % (0-10); HEMATOCRIT 34 % (35-52); LYMPHOCYTES # (AUTO) 2.6 10^3/uL (1.0-4.0); LYMPHOCYTES % (AUTO) 22 % (12-44); MEAN CORPUSCULAR HEMOGLOBIN 29 pg (25-34); MEAN CORPUSCULAR HGB CONC 33 g/dL (32-36); MEAN CORPUSCULAR VOLUME 87 fL (80-99); MONOCYTES # (AUTO) 0.9 10^3/uL (0.0-1.0); MONOCYTES % (AUTO) 8 % (0-12); NEUTROPHILS % (AUTO) 67 % (42-75); PLATELET COUNT 433 10^3/uL (130-400); WHITE BLOOD COUNT 11.9 10^3/uL (4.3-11.0)
[2022-04-28 12:51] LABS: SMEAR SCAN COMMENT YES
[2022-04-28 12:52] LABS: ALBUMIN 3.9 GM/DL (3.2-4.5); CHLORIDE 93 MMOL/L (98-107); POTASSIUM 5.2 MMOL/L (3.6-5.0); SODIUM 126 MMOL/L (135-145)
[2022-04-28 12:53] LABS: CALCIUM 10.3 MG/DL (8.5-10.1)
[2022-04-28 12:55] LABS: TOTAL PROTEIN 8.8 GM/DL (6.4-8.2)
[2022-04-28 12:56] LABS: BILIRUBIN,TOTAL 0.2 MG/DL (0.1-1.0); CARBON DIOXIDE 19 MMOL/L (21-32)
[2022-04-28 12:57] LABS: BILIRUBIN,URINE NEGATIVE (NEGATIVE); CLARITY,URINE CLEAR; COLOR,URINE YELLOW; GLUCOSE, URINE (UA) 3+ (NEGATIVE); KETONES,URINE NEGATIVE (NEGATIVE); LEUKOCYTE ESTERASE ,URINE NEGATIVE (NEGATIVE); NITRITE,URINE NEGATIVE (NEGATIVE); PH,URINE 5.5 (5-9); PROTEIN,URINE NEGATIVE (NEGATIVE)
[2022-04-28 12:58] LABS: ALKALINE PHOSPHATASE 123 U/L (40-136); CREATININE SERUM 1.78 MG/DL (0.60-1.30); GFR ESTIMATED 32
[2022-04-28 12:59] LABS: BUN/CREATININE RATIO 17
[2022-04-28 13:01] LABS: ALANINE AMINOTRANSFERASE 13 U/L (0-55)
--- NOTE | 2022-04-28 13:05 | Diagnostic Imaging Report ---
INDICATION: Dizziness and hyperglycemia. Frontal chest obtained at 12:43 p.m. COMPARISON: 10/01/2020 Heart and mediastinal silhouette are normal in appearance. The lungs are clear. There is no pneumothorax or pleural fluid. IMPRESSION: Negative chest. Dictated by: Dictated on workstation # [id number]
[2022-04-28 13:11] LABS: BACTERIA,URINE TRACE /HPF
[2022-04-28 13:12] LABS: SQUAMOUS EPITHELIAL CELL,UR 0-2 /HPF
[2022-04-28 13:17] LABS: GLUCOSE 695 MG/DL (70-105)
--- NOTE | 2022-04-28 13:25 | ED General ---
General Chief Complaint: Glucose Problems Stated Complaint: HIGH BLOOD SUGAR|DIZZY|HEADACHES Nursing Triage Note: PT AMB TO RM 3 WITH C\\O ELEV GLUCOSE X2 WEEKS READING "HI" OFF AND ON. PT STATES IT READ "HI" ON 3 MACHINES THIS MORNING. Source of Information: Patient Exam Limitations: No Limitations History of Present Illness Date Seen by Provider: Apr 28, 2022 Time Seen by Provider: 12:20 Initial Comments Patient is a 61-year-old female with a past medical history of diabetes, hypertension, CAD, artherosclerosis who presents to the emergency department for evaluation after having her blood glucose monitor reading "high" intermittently over the last 2 weeks. She states she tried to call her PCP earlier today but was unable to get a hold of anyone so presented to the ER. She states she is also been having some mild dizziness intermittently. States she has been taking her insulin as prescribed. States she did have some glazed doughnuts earlier today for breakfast. Denies any significantly increased thirst or increased frequency of urination. Denies chest pain, shortness of air, or fever. No recent ill symptoms. 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 Patient Home Medication List Home Medication List Reviewed: Yes Albuterol Sulfate (Ventolin Hfa) 1 Puff Puff, 2 PUFF IH Q4H PRN for SHORTNESS OF BREATH, (Reported) Entered as Reported by: EMILIA SMITH on 10/02/20 0329 Allopurinol (Allopurinol) 100 Mg Tablet, 100 MG PO 1200,2200, (Reported) Entered as Reported by: EMILIA SMITH on 10/02/20 0329 Alprazolam (Alprazolam) 0.5 Mg Tablet, 0.5 MG PO Q6HR PRN for ANXIETY Prescribed by: JEREMY RODRIGUEZ on 10/04/20 1256 Amlodipine Besylate (Amlodipine Besylate) 5 Mg Tablet, 5 MG PO 1999, (Reported) Entered as Reported by: EMILIA SMITH on 10/02/20328 Aspirin (Aspirin EC) 81 Mg Tablet.dr, 162 MG PO DAILY, (Reported) Entered as Reported by: EMILIA SMITH on 10/02/20328 Atorvastatin Calcium (Atorvastatin Calcium) 40 Mg Tablet, 40 MG PO HS, (Reported) Entered as Reported by: EMILIA SMITH on 10/02/20328 Diphenhydramine HCl (Benadryl) 25 Mg Capsule, 25 MG PO HS, (Reported) Entered as Reported by: MT PEREZ on 10/02/20 102 Fluticasone Propionate (Flonase Allergy Relief) 9.9 Ml [place].susp, 1-2 SPRAY NS DAILY PRN for CONGESTION, (Reported) Entered as Reported by: MT PEREZ on 10/02/20 102 Gabapentin (Neurontin) 300 Mg Capsule, 300 MG PO TID, (Reported) Entered as Reported by: MT PEREZ on 10/02/20 102 Gemfibrozil (Gemfibrozil) 600 Mg Tablet, 600 MG PO BID, (Reported) Entered as Reported by: EMILIA SMITH on 10/02/20328 Hydrocodone/Acetaminophen (Hydrocodone-Acetamin 7.5-325) 1 Each Tablet, 1 EACH PO Q6H PRN for PAIN-MODERATE (5-7) Prescribed by: JEREMY RODRIGUEZ on 10/04/20 1256 Insulin NPL/Insulin Lispro (Humalog Mix 50-50 Kwikpen) 100 Unit/1 Ml Insuln.pen, 90 UNIT SQ BID, (Reported) Entered as Reported by: EMILIA SMITH on 10/02/20328 Insulin NPL/Insulin Lispro (Humalog Mix 50-50 Kwikpen) 100 Unit/1 Ml Insuln.pen, 60 UNIT SQ 1200, (Reported) Entered as Reported by: MT PEREZ on 10/02/20 114 Isosorbide Mononitrate (Isosorbide Mononitrate ER) 120 Mg Tab.er.24h, 120 MG PO 2000, (Reported) Entered as Reported by: EMILIA SMITH on 10/02/20328 Lisinopril (Lisinopril) 10 Mg Tablet, 10 MG PO 1200, (Reported) Entered as Reported by: EMILIA SMITH on 10/02/20328 Melatonin (Melatonin) 10 Mg Tablet, 10 MG PO HS, (Reported) Entered as Reported by: MT PEREZ on 10/02/20 102 Meloxicam (Meloxicam) 15 Mg Tablet, 15 MG PO HS, (Reported) Entered as Reported by: EMILIA SMITH on 10/02/20328 Metformin HCl (Metformin HCl) 1,000 Mg Tablet, 1,000 MG PO 1200,2200, (Reported) Entered as Reported by: MT PEREZ on 10/02/20 102 Metoprolol Succinate (Metoprolol Succinate) 100 Mg Tab.er.24h, 100 MG PO 1800, (Reported) Entered as Reported by: EMILIA SMITH on 10/02/20328 Montelukast Sodium (Montelukast Sodium) 10 Mg Tablet, 10 MG PO HS, (Reported) Entered as Reported by: EMILIA SMITH on 10/02/20328 Nitroglycerin (Nitroglycerin) 0.4 Mg Tab.subl, 0.4 MG SL UD PRN for CHEST PAIN, (Reported) Entered as Reported by: EMILIA SMITH on 10/02/20328 Ondansetron (Ondansetron Odt) 4 Mg Tab.rapdis, 4 MG SL Q4H PRN for NAUSEA/VOMITING Prescribed by: EASTON RODRIGUEZ on 03/01/22 132 Pantoprazole Sodium (Pantoprazole Sodium) 40 Mg Tablet.dr, 40 MG PO HS, (Reported) Entered as Reported by: EMILIA SMITH on 10/02/20328 Ranolazine (Ranolazine ER) 500 Mg Tab.er.12h, 500 MG PO 1200,2200, (Reported) Entered as Reported by: EMILIA SMITH on 10/02/20328 Sitagliptin Phosphate (Januvia) 100 Mg Tablet, 100 MG PO DAILY, (Reported) Entered as Reported by: EMILIA SMITH on 10/02/20328 Sodium Bicarbonate (Sodium Bicarbonate) 650 Mg Tablet, 650 MG PO BID Prescribed by: EASTON RODRIGUEZ on 03/01/22 132 Sucralfate (Sucralfate) 1 Gm Tablet, 1 GM PO QID, (Reported) Entered as Reported by: LOUIE LEMON on 08/30/21 1148 Venlafaxine HCl (Venlafaxine HCl ER) 75 Mg Tab.er.24, 75 MG PO 1800, (Reported) Entered as Reported by: EMILIA SMITH on 10/02/20 0329 Venlafaxine HCl (Venlafaxine HCl ER) 75 Mg Tab.er.24, 75 MG PO DAILY, (Reported) Entered as Reported by: LOUIE LEMON on 08/30/21 1148 Review of Systems Review of Systems Constitutional: see HPI, dizziness EENTM: no symptoms reported Respiratory: no symptoms reported Cardiovascular: no symptoms reported Gastrointestinal: no symptoms reported Genitourinary: no symptoms reported Musculoskeletal: no symptoms reported Skin: no symptoms reported Psychiatric/Neurological: No Symptoms Reported Past Khgsmcc-Jujieg-Rlmxwh Hx Patient Social History Tobacco Use?: Yes Tobacco type used: Cigarettes Substance use?: No Alcohol Use?: No Pt feels they are or have been: No Immunizations Up To Date Tetanus Booster (TDap): Unknown Influenza Vaccine Up-to-Date: Yes; Up-to-Date First/Initial COVID19 Vaccinat: 07/28/2020 Second COVID19 Vaccination Bruce: 08/25/2020 Third COVID19 Vaccination Date: NO COVID19 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: [employer] Seasonal Allergies Seasonal Allergies: Yes Past Medical History Surgery/Hospitalization HX: TYPE II DIABETIC, CAD WITH 1 STENT, GALLBLADDER, C SECTION, APPENDECTOMY, RT KNEE SCOPE, RT SHOULDER Surgeries: Yes Appendectomy, Coronary Stent, Gallbladder, 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, Orthopedic Respiratory: Yes Asthma Cardiac: Yes ("Hole in heart") Coronary Artery Disease, Heart Attack, High Cholesterol, Hypertension Neurological: Yes Neuropathy, Seizure Disorder [employer] History: 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 Genitourinary: No Gastrointestinal: Yes Gastroesophageal Reflux Musculoskeletal: Yes Fibromyalgia, Gout Endocrine: Yes Diabetes, Insulin dep HEENT: No Cancer: Yes ("FEMALE") Uterine Did You Recieve Any Treatments: Yes What Type of Treatment Did You: Surgical Intervention Psychosocial: Yes Anxiety, Depression Integumentary: No Blood Disorders: Yes (ANEMIA) Adverse Reaction/Blood Tranf: No Physical Exam Vital Signs Vital Signs - First Documented 04/28/22 04/28/22 12:20 15:18 Temp 36.1 Pulse 92 Resp 20 B/P (MAP) 127/109 (115) Pulse Ox 99 Capillary Refill : Height, Weight, BMI Height: 5'3" Weight: 201lbs. oz. 91.320883ng; 38.00 BMI Method: General Appearance: No Apparent Distress, WD/WN HEENT: PERRL/EOMI, TMs Normal, Normal ENT Inspection, Pharynx Normal Neck: Full Range of Motion, Normal Inspection, Non Tender, Supple Respiratory: Normal Breath Sounds, No Accessory Muscle Use, No Respiratory Distress Cardiovascular: Regular Rate, Rhythm Gastrointestinal: Non Tender, Soft Extremity: Normal Capillary Refill, Normal Inspection, Normal Range of Motion, Non Tender, No Calf Tenderness Neurologic/Psychiatric: Alert, Oriented x3, No Motor/Sensory Deficits, Normal Mood/Affect Skin: Normal Color, Warm/Dry Progress/Results/Core Measures Suspected Sepsis SIRS Temperature: Pulse: 92 Respiratory Rate: 20 Laboratory Tests 04/28/22 12:30: White Blood Count 11.9H Blood Pressure 127 /109 Mean: 115 Laboratory Tests 04/28/22 12:30: Creatinine 1.78H, Platelet Count 433H, Total Bilirubin 0.2 Results/Orders Lab Results Laboratory Tests Test 04/28/22 12:30 04/28/22 12:34 04/28/22 12:38 04/28/22 14:23 Range/Units White Blood Count 11.9 H 4.3-11.0 10^3/uL Red Blood Count 3.95 3.80-5.11 10^6/uL Hemoglobin 11.4 L 11.5-16.0 g/dL Hematocrit 34 L 35-52 % Mean Corpuscular Volume 87 80-99 fL Mean Corpuscular Hemoglobin 29 25-34 pg Mean Corpuscular Hemoglobin Concent 33 32-36 g/dL Red Cell Distribution Width 15.5 H 10.0-14.5 % Platelet Count 433 H 130-400 10^3/uL Mean Platelet Volume 12.1 9.0-12.2 fL Immature Granulocyte % (Auto) 1 % Neutrophils (%) (Auto) 67 42-75 % Lymphocytes (%) (Auto) 22 12-44 % Monocytes (%) (Auto) 8 0-12 % Eosinophils (%) (Auto) 2 0-10 % Basophils (%) (Auto) 1 0-10 % Neutrophils # (Auto) 7.9 H 1.8-7.8 10^3/uL Lymphocytes # (Auto) 2.6 1.0-4.0 10^3/uL Monocytes # (Auto) 0.9 0.0-1.0 10^3/uL Eosinophils # (Auto) 0.3 0.0-0.3 10^3/uL Basophils # (Auto) 0.1 0.0-0.1 10^3/uL Immature Granulocyte # (Auto) 0.1 0.0-0.1 10^3/uL Percent Immature Platelet Fraction 7.3 0.0-7.6 % Sodium Level 126 L 135-145 MMOL/L Potassium Level 5.2 H 3.6-5.0 MMOL/L Chloride Level 93 L 98-107 MMOL/L Carbon Dioxide Level 19 L 21-32 MMOL/L Anion Gap 14 5-14 MMOL/L Blood Urea Nitrogen 31 H 7-18 MG/DL Creatinine 1.78 H 0.60-1.30 MG/DL Estimat Glomerular Filtration Rate 32 BUN/Creatinine Ratio 17 Glucose Level 695 *H 70-105 MG/DL Calcium Level 10.3 H 8.5-10.1 MG/DL Corrected Calcium 10.4 H 8.5-10.1 MG/DL Total Bilirubin 0.2 0.1-1.0 MG/DL Aspartate Amino Transf (AST/SGOT) 18 5-34 U/L Alanine Aminotransferase (ALT/SGPT) 13 0-55 U/L Alkaline Phosphatase 123 40-136 U/L Troponin I < 0.028 <0.028 NG/ML B-Type Natriuretic Peptide 11.4 <100.0 PG/ML Total Protein 8.8 H 6.4-8.2 GM/DL Albumin 3.9 3.2-4.5 GM/DL Beta-Hydroxybutyrate (Chem panel) 0.13 0.00-0.27 MMOL/L Smear Scan YES Venous Blood pH 7.30 L 7.31-7.41 Venous Blood Partial Pressure CO2 54 H 40-52 MMHG Venous Blood HCO3 26 22-28 MMOL/L Urine Color YELLOW Urine Clarity CLEAR Urine pH 5.5 5-9 Urine Specific [place] 1.010 L 1.016-1.022 Urine Protein NEGATIVE NEGATIVE Urine Glucose (UA) 3+ H NEGATIVE Urine Ketones NEGATIVE NEGATIVE Urine Nitrite NEGATIVE NEGATIVE Urine Bilirubin NEGATIVE NEGATIVE Urine Urobilinogen 0.2 < = 1.0 MG/DL Urine Leukocyte Esterase NEGATIVE NEGATIVE Urine RBC (Auto) 1+ H NEGATIVE Urine RBC 5-10 H /HPF Urine WBC NONE /HPF Urine Squamous Epithelial Cells 0-2 /HPF Urine Crystals NONE /LPF Urine Bacteria TRACE /HPF Urine Casts NONE /LPF Urine Mucus NEGATIVE /LPF Urine Culture Indicated NO Glucometer 495 *H 70-110 MG/DL My Orders Orders - MARCELL FITZPATRICK ERIBERTO Cbc With Automated Diff (04/28/22 12:34) Comprehensive Metabolic Panel (04/28/22 12:34) Venous Blood Gas (04/28/22 12:34) Iv/Invasive Line Insertion .IV INSERT (04/28/22 12:34) Beta Hydroxybutyrate (04/28/22 12:34) Ua Culture If Indicated (04/28/22 12:34) Hemoglobin A1c (04/28/22 12:34) Ekg Tracing (04/28/22 12:34) Troponin I [place] (04/28/22 12:34) Bnp [place] (04/28/22 12:34) Chest 1 View, Ap/Pa Only (04/28/22 12:34) Insulin (Regular) Human (Novolin R (Per (04/28/22 13:30) Medications Given in ED Current Medications Medications Dose Ordered Sig/Janelle Route Start Time Stop Time Status Last Admin Dose Admin Insulin Human Regular 20 unit ONCE ONCE SC 04/28/22 13:30 04/28/22 13:31 DC 04/28/22 13:39 20 UNIT Vital Signs/I&O 04/28/22 04/28/22 12:20 15:18 Temp 36.1 Pulse 92 84 Resp 20 20 B/P (MAP) 127/109 (115) 116/72 Pulse Ox 99 Capillary Refill : Blood Pressure Mean: 115 Point of Care Testing Finger Stick Blood Glucose: 600 Blood Glucose Action Taken: GLUECOMETER READS TO HIGH TO READ Progress Note : Progress Note Patient is nontoxic and well-hydrated on exam. No focal neurologic deficits appreciated. Patient does not have an increased respiratory rate or any Kussmaul respirations. She is awake alert and oriented x4. She was ambulatory to the room without issue. Initial bedside blood glucose reads high. Vital signs are reassuring. Laboratory evaluation notable for elevated glucose and pseudohyponatremia that is within normal limits when corrected. Mild hyperkalemia noted. Glucosuria without ketonuria noted on UA. Beta hydroxybutyrate is within normal limits. Patient was given 20 units of subcutaneous regular insulin. Blood glucose was checked 20 to 30 minutes thereafter and was noted to be decreased to less than 500. Patient is not in DKA. VBG reassuring. Discussed importance of adhering to her diet as well as the need for close follow-up with PCP for any potential medication changes. Return precautions for urgent symptomology discussed. Patient verbalized understanding. ECG EKG : EKG Time: 13:15 Rate: 89 Rhythm: Normal Sinus Intervals: Normal ECG Impression: Nonspecific Changes Departure Impression Primary Impression: Hyperglycemia due to diabetes mellitus Disposition: HOME, SELF-CARE Condition: Improved Departure-Patient Inst. Decision time for Depature: 15:00 Referrals: JEREMY RODRIGUEZ DO (PCP/Family) Primary Care Physician Patient Instructions: High Blood Sugar, Adult ED MARCELL FITZPATRICK APRN Apr 28, 2022 13:25
[2022-04-28] MEDS ORDERED: inSUlin (REGULAR) HUMAN 1 UNIT/0.01 ML (CHARGE PER UNIT) SC ONE (13:30)
[2022-04-28 15:18] VITALS: BP 116/72
== END 2022-04-28 15:18 | disposition home or self-care (01) ==
LOC: EDUNIT# 12:17 → ER 12:19
DX: E11.65 Type 2 diabetes mellitus with hyperglycemia (principal); E87.5 Hyperkalemia; F17.210 Nicotine dependence, cigarettes, uncomplicated; Z79.4 Long term (current) use of insulin
CPT/HCPCS: 36415; 71045; 80053; 81000; 82010; 82805; 82947; 83036; 83880; 84484; 85025; 93005

== ENCOUNTER 2022-05-23 14:29 | Outpatient (RCR) | payer MEDICARE, MEDICAID ==
[2022-05-23] MEDS ORDERED: CYANOCOBALAMIN INJ 1000 MCG/ML INJ SCH (14:45)
== END 2022-06-11 | disposition home or self-care (01) ==
LOC: ONC 14:29
PROVIDERS: ATTEND Internal Medicine Hematology & Oncology
DX: D50.9 Iron deficiency anemia, unspecified (principal); D51.9 Vitamin B12 deficiency anemia, unspecified; E11.9 Type 2 diabetes mellitus without complications; I26.99 Other pulmonary embolism without acute cor pulmonale; I10 Essential (primary) hypertension; J44.9 Chronic obstructive pulmonary disease, unspecified; E66.9 Obesity, unspecified; Z68.37 Body mass index [BMI] 37.0-37.9, adult; E78.5 Hyperlipidemia, unspecified; D72.829 Elevated white blood cell count, unspecified; Z72.0 Tobacco use
CPT/HCPCS: 96372

== ENCOUNTER 2022-06-23 11:15 | Outpatient (RCR) | payer MEDICARE, MEDICAID ==
[2022-06-23] MEDS ORDERED: CYANOCOBALAMIN INJ 1000 MCG/ML INJ SCH (11:30)
== END 2022-07-12 | disposition home or self-care (01) ==
LOC: ONC 11:15
PROVIDERS: ATTEND Internal Medicine Hematology & Oncology
DX: E53.8 Deficiency of other specified B group vitamins (principal); E11.9 Type 2 diabetes mellitus without complications; I10 Essential (primary) hypertension; J44.9 Chronic obstructive pulmonary disease, unspecified; E66.9 Obesity, unspecified; Z68.37 Body mass index [BMI] 37.0-37.9, adult; E78.5 Hyperlipidemia, unspecified; D72.829 Elevated white blood cell count, unspecified; Z72.0 Tobacco use
CPT/HCPCS: 96372

== ENCOUNTER 2022-07-08 08:24 | Emergency (ER) | payer MEDICARE, MEDICAID ==
[~2022-07-08] VITALS: Ht 162.6 cm; Wt 102.5 kg
[2022-07-08 08:30] VITALS: BP 133/74
[2022-07-08] MEDS ORDERED: fentaNYL INJ 100 MCG/2 ML AMP IM STA (08:35)
[2022-07-08] MEDS ORDERED: KETOROLAC 30 MG/ML VIAL IM STA (08:35)
--- NOTE | 2022-07-08 08:43 | ED Lower Extremity ---
General Chief Complaint: Lower Extremity Stated Complaint: LT KNEE INJ Source: patient History of Present Illness Date Seen by Provider: Jul 08, 2022 Time Seen by Provider: 08:29 Initial Comments 61-year-old female presenting with complaints of severe left knee pain since 5 AM. She states that she was trying to wipe herself to clean herself after going to the bathroom and her left knee twisted and popped. She has had severe pain since then and she thinks that she "blew her knee out". She has had some arthritic pain there before and states that she has fibromyalgia as well. She has chronic back pain and takes hydrocodone for that. She did take a hydrocodone at 5 AM when this happened but states that it was not helping. She denies being able to bear weight on the leg due to pain. She has a walker at home but it is a "sitdown walker" per friend in the room. Patient states she can not use the walker because she can not bear weight on her right leg. She rates her pain at an 8 out of 10. It is worse with movement as well as palpation on the lateral and posterior aspect of her knee. Location Injury Occurred: bathroom Onset: this morning (Around 5 AM) Pain/Injury Location: left knee Method of Injury: twisted (when she was standing trying to wipe herself after using the bathroom) Modifying Factors: Worse With Movement 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 Patient Home Medication List Home Medication List Reviewed: Yes Albuterol Sulfate (Ventolin Hfa) 1 Puff Puff, 2 PUFF IH Q4H PRN for SHORTNESS OF BREATH, (Reported) Entered as Reported by: EMILIA SMITH on 10/02/20 0329 Allopurinol (Allopurinol) 100 Mg Tablet, 100 MG PO 1200,2200, (Reported) Entered as Reported by: EMILIA SMITH on 10/02/20328 Alprazolam (Alprazolam) 0.5 Mg Tablet, 0.5 MG PO Q6HR PRN for ANXIETY Prescribed by: JEREMY RODRIGUEZ on 10/04/20 125 Amlodipine Besylate (Amlodipine Besylate) 5 Mg Tablet, 5 MG PO 1999, (Reported) Entered as Reported by: EMILIA SMITH on 10/02/20328 Aspirin (Aspirin EC) 81 Mg Tablet.dr, 162 MG PO DAILY, (Reported) Entered as Reported by: EMILIA SMITH on 10/02/20328 Atorvastatin Calcium (Atorvastatin Calcium) 40 Mg Tablet, 40 MG PO HS, (Reported) Entered as Reported by: EMILIA SMITH on 10/02/20328 Diphenhydramine HCl (Benadryl) 25 Mg Capsule, 25 MG PO HS, (Reported) Entered as Reported by: MT PEREZ on 10/02/20 1027 Fluticasone Propionate (Flonase Allergy Relief) 9.9 Ml [place].susp, 1-2 SPRAY NS DAILY PRN for CONGESTION, (Reported) Entered as Reported by: MT PEREZ on 10/02/20 102 Gabapentin (Neurontin) 300 Mg Capsule, 300 MG PO TID, (Reported) Entered as Reported by: MT PEREZ on 10/02/20 102 Gemfibrozil (Gemfibrozil) 600 Mg Tablet, 600 MG PO BID, (Reported) Entered as Reported by: EMILIA SMITH on 10/02/20328 Hydrocodone/Acetaminophen (Hydrocodone-Acetamin 7.5-325) 1 Each Tablet, 1 EACH PO Q6H PRN for PAIN-MODERATE (5-7) Prescribed by: JEREMY RODRIGUEZ on 10/04/20 125 Insulin NPL/Insulin Lispro (Humalog Mix 50-50 Kwikpen) 100 Unit/1 Ml Insuln.pen, 90 UNIT SQ BID, (Reported) Entered as Reported by: EMILIA SMITH on 10/02/20328 Insulin NPL/Insulin Lispro (Humalog Mix 50-50 Kwikpen) 100 Unit/1 Ml Insuln.pen, 60 UNIT SQ 1200, (Reported) Entered as Reported by: MT PEREZ on 10/02/20 114 Isosorbide Mononitrate (Isosorbide Mononitrate ER) 120 Mg Tab.er.24h, 120 MG PO 1999, (Reported) Entered as Reported by: EMILIA SMITH on 10/02/20328 Lisinopril (Lisinopril) 10 Mg Tablet, 10 MG PO 1200, (Reported) Entered as Reported by: EMILIA SMITH on 10/02/20328 Melatonin (Melatonin) 10 Mg Tablet, 10 MG PO HS, (Reported) Entered as Reported by: MT PEREZ on 10/02/20 102 Meloxicam (Meloxicam) 15 Mg Tablet, 15 MG PO HS, (Reported) Entered as Reported by: EMILIA SMITH on 10/02/20328 Metformin HCl (Metformin HCl) 1,000 Mg Tablet, 1,000 MG PO 1200,2200, (Reported) Entered as Reported by: MT PEREZ on 10/02/201026 Metoprolol Succinate (Metoprolol Succinate) 100 Mg Tab.er.24h, 100 MG PO 1800, (Reported) Entered as Reported by: EMILIA SMITH on 10/02/20328 Montelukast Sodium (Montelukast Sodium) 10 Mg Tablet, 10 MG PO HS, (Reported) Entered as Reported by: EMILIA SMITH on 10/02/20328 Nitroglycerin (Nitroglycerin) 0.4 Mg Tab.subl, 0.4 MG SL UD PRN for CHEST PAIN, (Reported) Entered as Reported by: EMILIA SMITH on 10/02/20328 Ondansetron (Ondansetron Odt) 4 Mg Tab.rapdis, 4 MG SL Q4H PRN for NAUSEA/VOMITING Prescribed by: EASTON RODRIGUEZ on 03/01/22 1326 Pantoprazole Sodium (Pantoprazole Sodium) 40 Mg Tablet.dr, 40 MG PO HS, (Reported) Entered as Reported by: EMILIA SMITH on 10/02/20328 Ranolazine (Ranolazine ER) 500 Mg Tab.er.12h, 500 MG PO 1200,2200, (Reported) Entered as Reported by: EMILIA SMITH on 10/02/20328 Sitagliptin Phosphate (Januvia) 100 Mg Tablet, 100 MG PO DAILY, (Reported) Entered as Reported by: EMILIA SMITH on 10/02/20328 Sodium Bicarbonate (Sodium Bicarbonate) 650 Mg Tablet, 650 MG PO BID Prescribed by: EASTON RODRIGUEZ on 03/01/22 1326 Sucralfate (Sucralfate) 1 Gm Tablet, 1 GM PO QID, (Reported) Entered as Reported by: LOUIE LEMON on 08/30/21 1148 Venlafaxine HCl (Venlafaxine HCl ER) 75 Mg Tab.er.24, 75 MG PO 1800, (Reported) Entered as Reported by: EMILIA SMITH on 10/02/20 0329 Venlafaxine HCl (Venlafaxine HCl ER) 75 Mg Tab.er.24, 75 MG PO DAILY, (Reported) Entered as Reported by: LOUIE LEMON on 08/30/21 1148 Review of Systems Constitutional: No chills, No fever EENTM: no symptoms reported Respiratory: no symptoms reported Cardiovascular: no symptoms reported Gastrointestinal: no symptoms reported Genitourinary: no symptoms reported Musculoskeletal: see HPI Skin: No change in color Psychiatric/Neurological: No Symptoms Reported Past Gtwzsao-Rvxthc-Jxmmwj Hx Patient Social History Tobacco Use?: Yes Tobacco type used: Cigarettes Smoking Status: Current Everyday Smoker Immunizations Up To Date Tetanus Booster (TDap): Unknown First/Initial COVID19 Vaccinat: 07/28/2020 Second COVID19 Vaccination Bruce: 08/25/2020 Third COVID19 Vaccination Date: NO Seasonal Allergies Seasonal Allergies: Yes Past Medical History Surgery/Hospitalization HX: TYPE II DIABETIC, CAD WITH 1 STENT, GALLBLADDER, C SECTION, APPENDECTOMY, RT KNEE SCOPE, RT SHOULDER Surgeries: Yes Appendectomy, Coronary Stent, Gallbladder, 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, Orthopedic Respiratory: Yes Asthma Cardiac: Yes ("Hole in heart") Coronary Artery Disease, Heart Attack, High Cholesterol, Hypertension Neurological: Yes Neuropathy, Seizure Disorder 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: 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 Genitourinary: No Gastrointestinal: Yes Gastroesophageal Reflux Musculoskeletal: Yes Fibromyalgia, Gout Endocrine: Yes Diabetes, Insulin dep HEENT: No Cancer: Yes ("FEMALE") Uterine Did You Recieve Any Treatments: Yes What Type of Treatment Did You: Surgical Intervention Psychosocial: Yes Anxiety, Depression Integumentary: No Blood Disorders: Yes (ANEMIA) Adverse Reaction/Blood Tranf: No Physical Exam Vital Signs Vital Signs - First Documented 07/08/22 08:30 Temp 36.4 Pulse 80 Resp 18 B/P (MAP) 133/74 (93) Pulse Ox 95 O2 Delivery Room Air Capillary Refill : Height, Weight, BMI Height: 5'3" Weight: 201lbs. oz. 91.632147di; 38.00 BMI Method: General Appearance: no apparent distress, obese Cardiovascular: normal peripheral pulses Knees: left knee pain (lateral and posterior pain with palpation and movement), left knee soft tissue tenderness (lateral) Neurologic/Tendon: normal sensation, normal motor functions, normal tendon functions Neurologic/Psychiatric: alert, oriented x 3 Skin: normal color, warm/dry Procedures/Interventions Splinting and Joint Reduction : Location: left knee/leg Pre-Proc Neuro Vasc Exam: normal Post-Proc Neuro Vasc Exam: normal Progress Nursing staff placed patient in a knee immobilizer to help with pain and stability of her left knee. She was neurovascular intact both pre and post placement of knee immobilizer. Counseled on management of immobilizer and follow up and return precautions. Progress/Results/Core Measures Results/Orders My Orders Orders - PARMJIT VALDIVIA MD Ketorolac Injection (Toradol Injection) (07/08/22 08:35) Fentanyl Inj (Sublimaze Injection) (07/08/22 08:35) Ice: Apply To Affected Area (07/08/22 08:36) Elevate Affected Extremity (07/08/22 08:36) Knee 3 View Left (07/08/22 08:36) Knee Immobilizer (07/08/22 08:36) Vital Signs/I&O 07/08/22 08:30 Temp 36.4 Pulse 80 Resp 18 B/P (MAP) 133/74 (93) Pulse Ox 95 O2 Delivery Room Air Progress Progress Note #1: Progress Note Potential diagnosis of lateral collateral ligament strain, ACL tear, PCL tear, meniscus injury, chronic arthritis flareup, knee strain, tibia fracture, fibula fracture, distal femur fracture. For pain order Toradol 30 mg IM at a lower dose than usual IM injection since she has history of diabetes and has some renal insufficiency based on lab from 04/28/2022. Fentanyl 50 mcg IM since she already takes chronic opiate pain medicine of Hydrocodone/Acetaminophen 7.5 mg/325 mg up to 4 times a day for chronic back pain and fibromyalgia. Ice and elevate the leg/knee to try and help with pain and symptoms. Xrays of the left knee to evaluate for bony abnormality. Will order knee immobilizer to try and help stabilize her knee. Advised her that she may need to follow up with pcp/orthopedics for MRI to look at soft tissue structures of the left knee. Can see about ordering a walker that she could use with the knee immobilizer to try and help her ambulate until she can follow up with clinic. Progress Note #2: Time: 08:50 Progress Note On my personal review and interpretation of her 3 views of the left knee she has no acute bony abnormality or fracture. Progress Note #3: Time: 09:00 Progress Note I reviewed the radiologist report of her 3 views of the left knee and they did not see any fractures or acute process. Continue with plan as above with knee immobilizer and walker. She had received her IM shots of Toradol and fentanyl just a few minutes prior to 9 AM. Will give some time to see if that is helping with pain. Give Dr. Loya's information along with [facility] for follow up. Advised she can check with Dr. Rodriguez first if she prefers and depending on insurance she might need to see PCP to get referral to Ortho. Reviewed [facility] program on the patient and did not see other controlled substances beyond what she advised us about with the Hydrocodone 7.5 mg pills. Could see if she can tolerate Oxycodone and could try prescribing a few Percocet for the patient. When I reviewed with patient the xray findings of no acute fracture or dislocation she was reassured but continues to state she thinks she had popped her knee out of joint this am. She now says she pressed on her knee to get it to "go back in place" when she had the loud popping and pain at 5 am. Counseled her at length any immobilizer and brace tolerated as well as ice and elevation will help. She could consider taking [id number] ibuprofen or naproxen to try and help as well. When asking her about tolerating other narcotic pain medicines she said that she was on a pain contract with Dr. Rodriguez so she did not want to have any other medications this would have to go through her. She did say the pain had improved with the shots and immobilizer here. So after the Fentanyl 50 mcg IM and Toradol 30 mg IM she had pain down to 6 out of 10 from her original 8 out of 10. Her friend asked about follow up with Dr. Ronni Manrique and since he was not oncologist today I had not listed his name initially when discussing follow up options with the patient. I will include his information on the discharge papers as the Dr. Manrique does come to [place] to see outpatients on certain days of the week. 941 I discussed the patient and her x-rays and physical exam findings as well a s presentation with Dr. Rodriguez, her primary care provider. She wanted to give some time for the knee immobilizer and rest, ice, elevation before considering changing any narcotic medications on the patient. Patient is due for refill of her hydrocodone 7.5 on the . From review of the patient monitoring program for [place] she last had 120 pills filled on June 09. She takes 1 every 6 hours as needed for severe pain. This is prescribed primarily for her chronic low back pain but also for her fibromyalgia and arthritic pain. She has been on this long-term and it is a chronic medicine so she may have some tolerance for it and narcotics in general. Will proceed with discharge to home and have her use her walker at home. She now states that the walker is how she had been getting around since the injury this morning. She states now that she can use it but still not able to bear weight on left leg. I counseled her that the immobilizer will help give stability and help with her pain so she should be able to at least toe-touch and use some weightbearing on the left leg. She could continue with her walker and weightbearing as tolerated using that. Advised to continue to wear the knee immobilizer until she follows up. Diagnostic Imaging Diagonstic Imaging: Xray Plain Films/CT/US/NM/MRI: knee Comments [facility] [place] NAME: WESLY ZARAGOZA [facility] REC#: [id number] PT STATUS: REG ER : 1960 PHYSICIAN: PARMJIT VALDIVIA MD ADMIT DATE: 07/08/22/ER FS Draft Date of Exam:07/08/22 KNEE 3 VIEW LEFT INDICATION: Left knee pain. TECHNIQUE: AP, oblique, and lateral views of the left knee were obtained. FINDINGS: No fracture or acute bony abnormality is seen. The joint spaces are unremarkable. There is mild chondrocalcinosis. IMPRESSION: No acute abnormality of the left knee. Dictated on workstation # [id number] Dict: 07/08/22 0852 Trans: 07/08/22 0854 [id number] Interpreted by: SHERINE CASTELLON MD Electronically signed by: Reviewed: Reviewed by Me Departure Impression Primary Impression: Sprain of unspecified site of left knee, initial encounter Additional Impression: Pain of left knee after injury Disposition: HOME, SELF-CARE Condition: Stable Departure-Patient Inst. Decision time for Depature: 09:47 Referrals: JEREMY RODRIGUEZ DO (PCP) Primary Care Physician HORTENCIA MAJOR JUSTIN S MD ZAFUTA, MICHAEL P MD Patient Instructions: How to Use a Walker, Knee Immobilizer (DC), Knee Pain ED, Knee Sprain ED Add. Discharge Instructions: Use the knee immobilizer to stabilize your knee and help with pain. Wear this at all times until you can follow up with clinic. Follow up with Orthopedics such as Dr. Loya in [place] or [facility] here in [place]. Dr. Ronni Manrique is an Orthopedic doctor that does come to [place] to see patients on certain days of the week. You could check about follow up with him as well. You may need to see your primary doctor first for a referral depending on your insurance. You could apply ice and try to elevate the knee to help with pain and swelling. Use Walker to help you get around without having to bear full weight on left leg. If your symptoms are not improving over the next 5 to 10 days then certainly check back through the clinic as they may need MRI or further evaluation beyond what is available in the Emergency Department. All discharge instructions reviewed with patient and/or family. Voiced understanding. PARMJIT VALDIVIA MD Jul 08, 2022 08:43
--- NOTE | 2022-07-08 08:55 | Diagnostic Imaging Report ---
INDICATION: Left knee pain. TECHNIQUE: AP, oblique, and lateral views of the left knee were obtained. FINDINGS: No fracture or acute bony abnormality is seen. The joint spaces are unremarkable. There is mild chondrocalcinosis. IMPRESSION: No acute abnormality of the left knee. Dictated by: Dictated on workstation # [id number]
== END 2022-07-08 10:00 | disposition home or self-care (01) ==
LOC: EDUNIT# 08:24 → ER FS 08:26
DX: S83.8X2A Sprain of other specified parts of left knee, initial encounter (principal); M54.50 Low back pain, unspecified; G89.29 Other chronic pain; M79.7 Fibromyalgia; E66.9 Obesity, unspecified; F17.210 Nicotine dependence, cigarettes, uncomplicated; Z68.38 Body mass index [BMI] 38.0-38.9, adult; Z88.5 Allergy status to narcotic agent; X50.1XXA Overexertion from prolonged static or awkward postures, initial encounter
CPT/HCPCS: 73562

== ENCOUNTER → 2022-07-08 | Outpatient (CLI) | payer MEDICARE, MEDICAID ==
[2022-07-08 10:29] LABS: BASOPHILS # (AUTO) 0.1 10^3/uL (0.0-0.1); BASOPHILS % (AUTO) 1 % (0-10); EOSINOPHILS # (AUTO) 0.5 10^3/uL (0.0-0.3); EOSINOPHILS % (AUTO) 3 % (0-10); HEMATOCRIT 35 % (35-52); HEMOGLOBIN 11.2 g/dL (11.5-16.0); LYMPHOCYTES # (AUTO) 3.1 10^3/uL (1.0-4.0); LYMPHOCYTES % (AUTO) 22 % (12-44); MEAN CORPUSCULAR HEMOGLOBIN 27 pg (25-34); MEAN CORPUSCULAR HGB CONC 33 g/dL (32-36); MEAN CORPUSCULAR VOLUME 83 fL (80-99); MEAN PLATELET VOLUME 10.9 fL (9.0-12.2); MONOCYTES # (AUTO) 1.2 10^3/uL (0.0-1.0); MONOCYTES % (AUTO) 8 % (0-12); NEUTROPHILS # (AUTO) 9.5 10^3/uL (1.8-7.8); NEUTROPHILS % (AUTO) 65 % (42-75); PLATELET COUNT 459 10^3/uL (130-400); WHITE BLOOD COUNT 14.5 10^3/uL (4.3-11.0)
[2022-07-08 10:59] LABS: ANISOCYTOSIS SLIGHT; BAND NEUTROPHILS 0 %; BASOPHILS % (MANUAL) 1 %; EOSINOPHILS % (MANUAL) 3 %; HYPOCHROMASIA SLIGHT; LYMPHOCYTES % (MANUAL) 25 %; MONOCYTES % (MANUAL) 9 %; NEUTROPHILS % (MANUAL) 62 %
[2022-07-08 11:13] LABS: ALBUMIN 3.9 GM/DL (3.2-4.5); BILIRUBIN,TOTAL 0.3 MG/DL (0.1-1.0); CALCIUM 9.7 MG/DL (8.5-10.1); CREATININE SERUM 1.11 MG/DL (0.60-1.30); POTASSIUM 5.2 MMOL/L (3.6-5.0); TOTAL PROTEIN 7.8 GM/DL (6.4-8.2)
[2022-07-08 14:59] LABS: FREE T4 (FREE THYROXINE) 0.93 NG/DL (0.70-1.48)
== END ==
LOC: LAB FS 10:02
PROVIDERS: ATTEND Internal Medicine
DX: I10 Essential (primary) hypertension (principal); E11.65 Type 2 diabetes mellitus with hyperglycemia; E03.9 Hypothyroidism, unspecified; Z13.6 Encounter for screening for cardiovascular disorders
CPT/HCPCS: 36415; 80053; 80061; 83036; 84439; 84443; 85007; 85027

== ENCOUNTER 2022-07-25 14:12 | Outpatient (RCR) | payer MEDICARE, MEDICAID ==
[~2022-07-25 14:12] MED LIST changes: +CYANOCOBALAMIN INJ 1000 MCG/ML INJ SCH
== END 2022-08-09 | disposition home or self-care (01) ==
LOC: ONC 14:12
PROVIDERS: ATTEND Internal Medicine Hematology & Oncology
DX: E53.8 Deficiency of other specified B group vitamins (principal); E11.9 Type 2 diabetes mellitus without complications; I10 Essential (primary) hypertension; J44.9 Chronic obstructive pulmonary disease, unspecified; E66.9 Obesity, unspecified; Z68.37 Body mass index [BMI] 37.0-37.9, adult; E78.5 Hyperlipidemia, unspecified; D72.829 Elevated white blood cell count, unspecified; Z72.0 Tobacco use
CPT/HCPCS: 36415; 82728; 83540; 83550; 96372

== ENCOUNTER → 2022-07-29 | Outpatient (CLI) | payer MEDICARE, MEDICAID ==
[~2022-07-29] MED LIST changes: -CYANOCOBALAMIN INJ 1000 MCG/ML INJ SCH
== END ==
LOC: CARD 08:35
PROVIDERS: ATTEND Nurse Practitioner Family
DX: I51.9 Heart disease, unspecified (principal)
CPT/HCPCS: 93306

== ENCOUNTER → 2022-08-16 | Outpatient (CLI) | payer MEDICARE, MEDICAID ==
[~2022-08-16] VITALS: Ht 162 cm; Wt 103.0 kg
[~2022-08-16] MED LIST changes: +REGADENOSON 0.4 MG/5 ML SYR (LEXISCAN) IV ONE
[2022-08-16] MEDS: CATHETER FLUSH 10 ML SYR IVP PRN ×2 (11:29→13:13)
[2022-08-16 13:11] VITALS: BP 118/84
--- NOTE | 2022-08-17 16:50 | STRESS TEST ---
DATE OF SERVICE: 08/16/2022 RESTING AND POST REGADENOSON TECHNETIUM-99M TETROFOSMIN SPECT CT IMAGING ORDERING PHYSICIAN: Elif Ojeda APRN. PRIMARY PHYSICIAN: Dr. Cr. CLINICAL DIAGNOSIS: Coronary artery disease. Baseline images were carried out after injection of 11 mCi of technetium-99m tetrofosmin. This was followed by 0.4 mg regadenoson and 32.8 mCi of technetium-99m tetrofosmin for stress imaging. The electrocardiogram showed sinus rhythm at baseline. It did not change significantly with regadenoson infusion. She noted some shortness of breath following regadenoson infusion, which resolved in a few minutes. Review of images at rest and following stress does not indicate any significant perfusion defects consistent with any significant myocardial ischemia or infarction. Gated images show normal global left ventricular systolic function with normal regional wall motion. Left ventricular ejection fraction is calculated to be 69%. CONCLUSIONS: 1. No evidence of any significant myocardial ischemia or infarction on this study. 2. Normal regional wall motion. 3. Normal global left ventricular systolic function with a calculated ejection fraction of 69%. Job ID: [id number] DocumentID: [id number] Dictated Date: 08/17/2022 12:47:25 Senior Marketing Coordinator Date: 08/17/2022 15:52:00 Dictated By: MALA MOY MD; ELIZA; FACP; FACC;
== END ==
LOC: CARD 10:53
PROVIDERS: ATTEND Nurse Practitioner Family
DX: I25.10 Atherosclerotic heart disease of native coronary artery without angina pectoris (principal)
CPT/HCPCS: 78452; 93017; A9502

== ENCOUNTER → 2022-08-31 | Outpatient (CLI) | payer MEDICARE, MEDICAID ==
[~2022-08-31] MED LIST changes: -REGADENOSON 0.4 MG/5 ML SYR (LEXISCAN) IV ONE
--- NOTE | 2022-08-31 13:04 | Diagnostic Imaging Report ---
INDICATION: Left knee pain AP, oblique, and lateral views left knee are obtained and compared with 07/08/2022. No fracture or acute bony abnormality seen. There is mild chondrocalcinosis and mild medial and lateral joint space narrowing. There is minimal patellofemoral spurring. IMPRESSION: Chondrocalcinosis with mild degenerative changes of left knee. No acute abnormality. Dictated by: Dictated on workstation # [id number]
== END ==
LOC: RAD FS 08:34
PROVIDERS: ATTEND Nurse Practitioner
DX: M17.12 Unilateral primary osteoarthritis, left knee (principal); M11.262 Other chondrocalcinosis, left knee
CPT/HCPCS: 73562

== ENCOUNTER 2022-10-26 13:40 | Outpatient (RCR) | payer MEDICARE, MEDICAID ==
[~2022-10-26 13:40] MED LIST changes: -GABA300S2 PO; +GABA300S3 PO
[2022-10-26 14:07] LABS: BASOPHILS # (AUTO) 0.1 10^3/uL (0.0-0.1); BASOPHILS % (AUTO) 1 % (0-10); EOSINOPHILS # (AUTO) 0.4 10^3/uL (0.0-0.3); EOSINOPHILS % (AUTO) 3 % (0-10); HEMATOCRIT 36 % (35-52); LYMPHOCYTES # (AUTO) 3.5 10^3/uL (1.0-4.0); LYMPHOCYTES % (AUTO) 24 % (12-44); MEAN CORPUSCULAR HEMOGLOBIN 28 pg (25-34); MEAN CORPUSCULAR HGB CONC 33 g/dL (32-36); MEAN CORPUSCULAR VOLUME 84 fL (80-99); MEAN PLATELET VOLUME 10.6 fL (9.0-12.2); MONOCYTES # (AUTO) 1.2 10^3/uL (0.0-1.0); MONOCYTES % (AUTO) 8 % (0-12); NEUTROPHILS # (AUTO) 9.7 10^3/uL (1.8-7.8); NEUTROPHILS % (AUTO) 65 % (42-75); PLATELET COUNT 506 10^3/uL (130-400)
[2022-10-26 14:22] LABS: ALBUMIN 3.7 GM/DL (3.2-4.5); BILIRUBIN,TOTAL 0.4 MG/DL (0.1-1.0); CALCIUM 9.5 MG/DL (8.5-10.1); CREATININE SERUM 1.35 MG/DL (0.60-1.30); POTASSIUM 4.2 MMOL/L (3.6-5.0); TOTAL PROTEIN 7.7 GM/DL (6.4-8.2)
== END 2022-11-09 | disposition home or self-care (01) ==
LOC: ONC 13:40
PROVIDERS: ATTEND Internal Medicine Hematology & Oncology
DX: I26.99 Other pulmonary embolism without acute cor pulmonale (principal); D51.9 Vitamin B12 deficiency anemia, unspecified; D72.829 Elevated white blood cell count, unspecified; D50.9 Iron deficiency anemia, unspecified; E11.9 Type 2 diabetes mellitus without complications; E66.01 Morbid (severe) obesity due to excess calories; I25.10 Atherosclerotic heart disease of native coronary artery without angina pectoris
CPT/HCPCS: 80053; 82728; 83540; 83550; 85025

== ENCOUNTER → 2022-11-18 | Outpatient (CLI) | payer MEDICARE, MEDICAID ==
[2022-11-18 10:17] LABS: BILIRUBIN,TOTAL 0.3 MG/DL (0.1-1.0); CALCIUM 9.2 MG/DL (8.5-10.1); CREATININE SERUM 1.02 MG/DL (0.60-1.30); POTASSIUM 4.9 MMOL/L (3.6-5.0); TOTAL PROTEIN 7.8 GM/DL (6.4-8.2)
[2022-11-18 10:18] LABS: ALBUMIN 3.9 GM/DL (3.2-4.5)
[2022-11-18 15:27] LABS: FREE T4 (FREE THYROXINE) 0.96 NG/DL (0.70-1.48)
== END ==
LOC: LAB FS 09:17
PROVIDERS: ATTEND Internal Medicine
DX: Z13.6 Encounter for screening for cardiovascular disorders (principal); E11.65 Type 2 diabetes mellitus with hyperglycemia; E03.9 Hypothyroidism, unspecified; I10 Essential (primary) hypertension
CPT/HCPCS: 36415; 80053; 82043; 82465; 83036; 84439; 84443; 84478

== ENCOUNTER → 2023-03-20 | Outpatient (CLI) | payer MEDICARE, MEDICAID ==
[2023-03-20 10:59] LABS: CREATININE SERUM 1.51 MG/DL (0.60-1.30); POTASSIUM 4.3 MMOL/L (3.6-5.0)
[2023-03-20 11:00] LABS: ALBUMIN 4.1 GM/DL (3.2-4.5); BILIRUBIN,TOTAL 0.5 MG/DL (0.1-1.0); CALCIUM 9.9 MG/DL (8.5-10.1); TOTAL PROTEIN 8.3 GM/DL (6.4-8.2)
[2023-03-20 15:20] LABS: FREE T4 (FREE THYROXINE) 0.89 NG/DL (0.70-1.48)
== END ==
LOC: LAB FS 09:37
PROVIDERS: ATTEND Internal Medicine
DX: Z13.6 Encounter for screening for cardiovascular disorders (principal); E11.65 Type 2 diabetes mellitus with hyperglycemia; E03.9 Hypothyroidism, unspecified; I10 Essential (primary) hypertension
CPT/HCPCS: 36415; 80053; 82465; 83036; 84439; 84443; 84478

== ENCOUNTER 2023-04-17 13:32 | Outpatient (RCR) | payer MEDICARE, MEDICAID ==
[2023-04-17 15:22] LABS: BASOPHILS # (AUTO) 0.1 10^3/uL (0.0-0.1); BASOPHILS % (AUTO) 1 % (0-10); EOSINOPHILS # (AUTO) 0.4 10^3/uL (0.0-0.3); EOSINOPHILS % (AUTO) 4 % (0-10); HEMATOCRIT 38 % (35-52); HEMOGLOBIN 11.8 g/dL (11.5-16.0); LYMPHOCYTES # (AUTO) 2.3 X 10^3 (1.0-4.0); LYMPHOCYTES % (AUTO) 23 % (12-44); MEAN CORPUSCULAR HEMOGLOBIN 29 pg (25-34); MEAN CORPUSCULAR HGB CONC 31 g/dL (32-36); MEAN CORPUSCULAR VOLUME 94 fL (80-99); MONOCYTES # (AUTO) 1.2 X 10^3 (0.0-1.0); MONOCYTES % (AUTO) 12 % (0-12); NEUTROPHILS # (AUTO) 6.1 X 10^3 (1.8-7.8); NEUTROPHILS % (AUTO) 61 % (42-75); PLATELET COUNT 381 10^3/uL (130-400); WHITE BLOOD COUNT 10.1 10^3/uL (4.3-11.0)
== END 2023-05-11 | disposition home or self-care (01) ==
LOC: ONC 13:32
PROVIDERS: ATTEND Internal Medicine Hematology & Oncology
DX: D72.829 Elevated white blood cell count, unspecified (principal); D50.9 Iron deficiency anemia, unspecified; E53.8 Deficiency of other specified B group vitamins; I26.99 Other pulmonary embolism without acute cor pulmonale; I10 Essential (primary) hypertension; E11.9 Type 2 diabetes mellitus without complications; Z72.0 Tobacco use
CPT/HCPCS: 82728; 83540; 83550; G0463; 99214

== ENCOUNTER 2023-05-18 07:53 | Emergency (ER) | payer MEDICARE, MEDICAID ==
[~2023-05-18] VITALS: Ht 162 cm; Wt 100.0 kg
[2023-05-18 08:04] VITALS: BP 130/88
[2023-05-18] MEDS ORDERED: Tetanus/Diphtheria/Pertussis (Acell) ADULT Vaccine 0.5 ML IM ONE (08:15)
--- NOTE | 2023-05-18 08:36 | ED Lower Extremity ---
General Chief Complaint: Laceration Stated Complaint: DIZZINESS; FALL; LT LITTLE TOE INJ Nursing Triage Note: Patient has presented to ER with cc of a small laceration between the 4th and fith toe on her left foot. Source: patient Exam Limitations: no limitations History of Present Illness Date Seen by Provider: May 18, 2023 Time Seen by Provider: 07:58 Initial Comments 62-year-old female with past medical history of diabetes coming in due to a left foot wound. She tripped last night around 4 in the morning and has a cut between the webspace of her pinky toe and fourth toe. This occurred 4 hours prior to arrival. She is unsure of her last tetanus vaccine. She is not really having pain, but noticed a cut and bleeding. Otherwise denying any other acute complaints. 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 Patient Home Medication List Home Medication List Reviewed: Yes Albuterol Sulfate (Ventolin Hfa) 1 Puff Puff, 2 PUFF IH Q4H PRN for SHORTNESS OF BREATH, (Reported) Entered as Reported by: EMILIA SMITH on 10/02/20328 Allopurinol (Allopurinol) 100 Mg Tablet, 100 MG PO 1200,2200, (Reported) Entered as Reported by: EMILIA SMITH on 10/02/20328 Alprazolam (Alprazolam) 0.5 Mg Tablet, 0.5 MG PO Q6HR PRN for ANXIETY Prescribed by: JEREMY RODRIGUEZ on 10/04/20 1256 Amlodipine Besylate (Amlodipine Besylate) 5 Mg Tablet, 5 MG PO 1999, (Reported) Entered as Reported by: EMILIA SMITH on 10/02/20328 Aspirin (Aspirin EC) 81 Mg Tablet.dr, 162 MG PO DAILY, (Reported) Entered as Reported by: EMILIA SMITH on 10/02/20328 Atorvastatin Calcium (Atorvastatin Calcium) 40 Mg Tablet, 40 MG PO HS, (Reported) Entered as Reported by: EMILIA SMITH on 10/02/20328 Diphenhydramine HCl (Benadryl) 25 Mg Capsule, 25 MG PO HS, (Reported) Entered as Reported by: MT PEREZ on 10/02/20 102 Fluticasone Propionate (Flonase Allergy Relief) 9.9 Ml [place].susp, 1-2 SPRAY NS DAILY PRN for CONGESTION, (Reported) Entered as Reported by: MT PEREZ on 10/02/20 102 Gabapentin (Neurontin) 300 Mg Capsule, 300 MG PO TID, (Reported) Entered as Reported by: MT PEREZ on 10/02/20 102 Gemfibrozil (Gemfibrozil) 600 Mg Tablet, 600 MG PO BID, (Reported) Entered as Reported by: EMILIA SMITH on 10/02/20328 Hydrocodone/Acetaminophen (Hydrocodone-Acetamin 7.5-325) 1 Each Tablet, 1 EACH PO Q6H PRN for PAIN-MODERATE (5-7) Prescribed by: JEREMY RODRIGUEZ on 10/04/20 1256 Insulin NPL/Insulin Lispro (Humalog Mix 50-50 Kwikpen) 100 Unit/1 Ml Insuln.pen, 90 UNIT SQ BID, (Reported) Entered as Reported by: EMILIA SMITH on 10/02/20328 Insulin NPL/Insulin Lispro (Humalog Mix 50-50 Kwikpen) 100 Unit/1 Ml Insuln.pen, 60 UNIT SQ 1200, (Reported) Entered as Reported by: MT PEREZ on 10/02/20 1148 Isosorbide Mononitrate (Isosorbide Mononitrate ER) 120 Mg Tab.er.24h, 120 MG PO 2000, (Reported) Entered as Reported by: EMILIA SMITH on 10/02/20328 Lisinopril (Lisinopril) 10 Mg Tablet, 10 MG PO 1200, (Reported) Entered as Reported by: EMILIA SMITH on 10/02/20328 Melatonin (Melatonin) 10 Mg Tablet, 10 MG PO HS, (Reported) Entered as Reported by: MT PEREZ on 10/02/20 102 Meloxicam (Meloxicam) 15 Mg Tablet, 15 MG PO HS, (Reported) Entered as Reported by: EMILIA SMITH on 10/02/20328 Metformin HCl (Metformin HCl) 1,000 Mg Tablet, 1,000 MG PO 1200,2200, (Reported) Entered as Reported by: MT PEREZ on 10/02/20 1027 Metoprolol Succinate (Metoprolol Succinate) 100 Mg Tab.er.24h, 100 MG PO 1800, (Reported) Entered as Reported by: EMILIA SMITH on 10/02/20328 Montelukast Sodium (Montelukast Sodium) 10 Mg Tablet, 10 MG PO HS, (Reported) Entered as Reported by: EMILIA SMITH on 10/02/20328 Nitroglycerin (Nitroglycerin) 0.4 Mg Tab.subl, 0.4 MG SL UD PRN for CHEST PAIN, (Reported) Entered as Reported by: EMILIA SMITH on 10/02/20328 Ondansetron (Ondansetron Odt) 4 Mg Tab.rapdis, 4 MG SL Q4H PRN for NAUSEA/VOMITING Prescribed by: EASTON RODRIGUEZ on 03/01/22 132 Pantoprazole Sodium (Pantoprazole Sodium) 40 Mg Tablet.dr, 40 MG PO HS, (Reported) Entered as Reported by: EMILIA SMITH on 10/02/20328 Ranolazine (Ranolazine ER) 500 Mg Tab.er.12h, 500 MG PO 1200,2200, (Reported) Entered as Reported by: EMILIA SMITH on 10/02/20328 Sitagliptin Phosphate (Januvia) 100 Mg Tablet, 100 MG PO DAILY, (Reported) Entered as Reported by: EMILIA SMITH on 10/02/20328 Sodium Bicarbonate (Sodium Bicarbonate) 650 Mg Tablet, 650 MG PO BID Prescribed by: EASTON RODRIGUEZ on 03/01/22 132 Sucralfate (Sucralfate) 1 Gm Tablet, 1 GM PO QID, (Reported) Entered as Reported by: LOUIE LEMON on 08/30/21 1148 Venlafaxine HCl (Venlafaxine HCl ER) 75 Mg Tab.er.24, 75 MG PO 1800, (Reported) Entered as Reported by: EMILIA SMITH on 10/02/20328 Venlafaxine HCl (Venlafaxine HCl ER) 75 Mg Tab.er.24, 75 MG PO DAILY, (Reported) Entered as Reported by: LOUIE LEMON on 08/30/21 1148 Review of Systems Constitutional: No fever EENTM: no symptoms reported Respiratory: no symptoms reported Cardiovascular: no symptoms reported Gastrointestinal: no symptoms reported Genitourinary: no symptoms reported Musculoskeletal: see HPI Psychiatric/Neurological: No Symptoms Reported Past Dpctule-Mzbxhb-Yfdvfw Hx Patient Social History Tobacco Use?: Yes Tobacco type used: Cigarettes Use of E-Cig and/or Vaping dev: No Substance use?: No Alcohol Use?: No Immunizations Up To Date Tetanus Booster (TDap): Unknown First/Initial COVID19 Vaccinat: 07/28/2020 Second COVID19 Vaccination [place]: 08/25/2020 Third COVID19 Vaccination Date: 07/28/2020 Seasonal Allergies Seasonal Allergies: Yes Past Medical History Surgery/Hospitalization HX: TYPE II DIABETIC, CAD WITH 1 STENT, GALLBLADDER, C SECTION, APPENDECTOMY, RT KNEE SCOPE, RT SHOULDER Surgeries: Yes Appendectomy, Coronary Stent, Gallbladder, 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, Orthopedic Respiratory: Yes Asthma Cardiac: Yes ("Hole in heart") Coronary Artery Disease, Heart Attack, High Cholesterol, Hypertension Neurological: Yes Neuropathy, Seizure Disorder [employer] WORK[employer] History: 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 Genitourinary: No Gastrointestinal: Yes Gastroesophageal Reflux Musculoskeletal: Yes Fibromyalgia, Gout Endocrine: Yes Diabetes, Insulin dep HEENT: No Cancer: Yes ("FEMALE") Uterine Did You Recieve Any Treatments: Yes What Type of Treatment Did You: Surgical Intervention Psychosocial: Yes Anxiety, Depression Integumentary: No Blood Disorders: Yes (ANEMIA) Adverse Reaction/Blood Tranf: No Physical Exam Vital Signs Vital Signs - First Documented 05/18/23 08:04 Pulse 101 Resp 18 B/P (MAP) 130/88 (102) Pulse Ox 96 O2 Delivery Room Air Capillary Refill : Height, Weight, BMI Height: 5'3" Weight: 201lbs. oz. 91.382656vv; 38.00 BMI Method: General Appearance: WD/WN, no apparent distress HEENT: PERRL/EOMI, normal ENT inspection, pharynx normal Neck: non-tender, full range of motion, supple, normal inspection Cardiovascular: regular rate, rhythm, no edema Respiratory: chest non-tender, lungs clear, normal breath sounds, no respiratory distress, no accessory muscle use Knees: bilateral knee non-tender, bilateral knee normal inspection, bilateral knee normal range of motion, bilateral knee no evidence of injury Ankles: bilateral ankle non-tender, bilateral ankle normal inspection, bilateral ankle normal range of motion, bilateral ankle no evidence of injury Feet: bilateral foot non-tender; right foot normal inspection, right foot normal range of motion, right foot no evidence of injury; left foot other (2cm laceration to the web space between pinky toe and 4th toe, superficial, hemostatic) Neurologic/Tendon: normal sensation, normal motor functions, normal tendon functions Neurologic/Psychiatric: no motor/sensory deficits, alert, normal mood/affect Skin: normal color, warm/dry Procedures/Interventions Wound Location: Lower Extremities Other Wound Location web space between 4th and 5th toes on the left Wound Length (cm): 2 Wound's Depth, Shape: superficial Irrigated w/ Saline (ccs): 400 Betadine Prep?: Yes Anesthesia: Lidocaine w/ Epi Volume Anesthetic (ccs): 2 Suture: Chromic Suture Size: 5-0 Number of Sutures: 3 Progress wound very difficult to get to anatomically. Anytime I would try to increased the spacing to get a suture into the webspace, it would tear the other sutures. Because of this, could not suture the whole length of the wound. Patient tolerated the procedure well. Antibiotic ointment placed on it after. Progress/Results/Core Measures Results/Orders My Orders Orders - LENARD MARCOS MD Dipht/Pertuss(Acell)/Tet Adult (Dipht/Pe (05/18/23 08:15) Medications Given in ED Current Medications Medications Dose Ordered Sig/Janelle Route Start Time Stop Time Status Last Admin Dose Admin Diphtheria/ Tetanus/Acell Pertussis 0.5 ml ONCE ONCE IM 05/18/23 08:15 05/18/23 08:16 DC 05/18/23 08:24 0.5 ML Vital Signs/I&O 05/18/23 08:04 Pulse 101 Resp 18 B/P (MAP) 130/88 (102) Pulse Ox 96 O2 Delivery Room Air Blood Pressure Mean: 102 Progress Progress Note : Progress Note 62yoF coming in for foot lac. ABCs intact and VSS on presentation. Wound is superficial. No bony tenderness, no xray needed. Tetanus vaccine updated today. Wound cleaned and closed to the best of our ability based on the difficult anatomic location. Antibiotic ointment placed on it after. Patient then discharged home in stable condition with strict return precautions. She should follow up with a comber tender due to concerns for wound healing with her diabetes. Departure Impression Primary Impression: Foot laceration Qualified Codes: S91.312A - Laceration without foreign body, left foot, initial encounter Disposition: HOME, SELF-CARE Condition: Stable Departure-Patient Inst. Decision time for Depature: 08:40 Referrals: JEREMY RODRIGUEZ DO (PCP) Primary Care Physician Patient Instructions: Laceration Repair With Stitches ED Add. Discharge Instructions: The stitches are absorbable and do not need to come back out. Take tylenol as needed for pain. Please follow up with a foot doctor to be sure the wound is healing well. Try to keep the foot wrapped for the next couple of weeks so the toes don't spread out. If the toes spread it will prevent it from healing well. Please be seen by doctor soon as possible if you notice redness spreading up your leg, pus or drainage coming out of the wound, or any concerns for infection of the wound. Do not allow it to be completely submerged in water for at least a couple weeks. Water can run over it briefly in the shower. LENARD MARCOS MD May 18, 2023 08:36
== END 2023-05-18 08:39 | disposition home or self-care (01) ==
LOC: EDUNIT# 07:53 → ER FS 07:54
DX: S91.312A Laceration without foreign body, left foot, initial encounter (principal); E11.9 Type 2 diabetes mellitus without complications; F17.210 Nicotine dependence, cigarettes, uncomplicated; Z23 Encounter for immunization; Z79.4 Long term (current) use of insulin; W01.0XXA Fall on same level from slipping, tripping and stumbling without subsequent striking against object, initial encounter
CPT/HCPCS: 90471; 90715